=== PATIENT | male | born 1955 | race Caucasian/White ===

== ENCOUNTER 2019-11-02 15:11 | Observation (INO) | payer OTHER, SELFPAY ==
[2019-11-02] VITALS (13 sets, daily range): BP systolic 116–168; BP diastolic 73–100; PULSE 63–89; RESP 16–21; TEMP 36.5–37.1; O2SAT 95–100; BMI 26.6
--- NOTE | 2019-11-02 15:14 | ECG_ITS ---
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 Measurements Intervals [place] Rate: 74 P: -3 IL: 198 QRS: 66 QRSD: 116 T: 93 QT: 408 QTc: 455 Interpretive Statements SINUS RHYTHM LATERAL MYOCARDIAL INFARCTION , OF INDETERMINATE AGE [40+ ms Q WAVE AND/OR ST/T ABNORMALITY IN I/aVL/V5/V6] MODERATE T-WAVE ABNORMALITY, CONSIDER ANTERIOR ISCHEMIA [-0.1+ mV T WAVE IN V3/V4] Compared to ECG 01/17/2018 00:44:40 Myocardial infarct finding now present Sinus bradycardia no longer present Intraventricular conduction delay no longer present T-wave abnormality still present Possible ischemia still present Electronically Signed On 11-02-2019 19:59:59 CDT by Momo Poole M.D. [id number] jose juan
--- NOTE | 2019-11-02 15:14 | XRR_ITS ---
PROCEDURE INFORMATION: Exam: XR Chest, 1 View Exam date and time: 11/02/2019 3:15 PM Age: 64 years old Clinical indication: Chest pain; Additional info: Cp TECHNIQUE: Imaging protocol: XR of the chest Views: 1 view. COMPARISON: CR Ribs RIGHT w PA Chest [id number] 02/21/2019 1:11 PM FINDINGS: Lungs: Stable right calcified hilar nodes and/or mediastinal nodes and/or lung nodules consistent with old granulomatous disease. Stable COPD . Pleural space: Unremarkable. No pleural effusion. No pneumothorax. Heart/Mediastinum: Unremarkable. No cardiomegaly. Bones/joints: Unremarkable. XR/XR chest 1V portable [id number] IMPRESSION: Stable COPD .
[2019-11-02 15:30] LABS: Basophils # 0.1 10^3/uL (0.0-0.1); Basophils % 0.7 %; Eosinophils # 0.1 10^3/uL (0.0-0.8); Eosinophils % 0.9 %; Hematocrit 43.3 % (42.0-52.0); Hemoglobin 14.9 g/dL (11.7-16.6); Lymphocytes # 2.2 10^3/uL (0.8-4.8); Lymphocytes % 18.8 %; Mean Corpuscular HGB Conc 34.4 g/dL (30.0-36.0); Mean Corpuscular Hemoglobin 31.4 pg (28.0-34.0); Mean Corpuscular Volume 91.4 fL (80-94); Mean Platelet Volume 8.9 fL (7.4-10.4); Monocytes # 0.6 10^3/uL (0.2-0.9); Monocytes % 4.7 %; Neutrophils # 8.8 10^3/uL (1.8-7.7); Neutrophils % 74.7 %; Nucleated Red Blood Cells % 0 %; Platelet Count 271 10^3/cmm (130-400); Red Blood Count 4.74 10^6/uL (4.1-5.3); Red Cell Distribution Width 11.9 % (12.1-15.1); White Blood Count 11.7 10^3/uL (4.0-10.0)
[2019-11-02 15:44] LABS: Alanine Aminotransferase 13 U/L (0-41); Albumin Level 4.3 g/dL (3.5-5.2); Alkaline Phosphatase 70 IU/L (40-130); Anion Gap 16.8 (5-19); Aspartate Amino Transferase 20 U/L (0-40); Blood Urea Nitrogen 6 mg/dL (8-23); Calcium 9.3 mg/dL (8.5-10.5); Carbon Dioxide 22 mmol/L (22-29); Chloride 96 mmol/L (98-107); Globulin 2.5 g/dL (1.3-4.6); Glomerular Filtration Rate 85.5 mL/min (90-130); Glucose 141 mg/dL (65-115); Osmolality Calculated 270 mOsm/kg (285-295); Potassium 3.8 mmol/L (3.5-5.1); Sodium 131 mmol/L (136-145); Total Bilirubin 0.3 mg/dL (0.15-1.2); Total Protein 6.8 g/dL (6.6-8.7)
[2019-11-02 15:47] LABS: Troponin(5th) Baseline 8 ng/L (0-15)
--- NOTE | 2019-11-02 16:04 | ED_ITS ---
HPI - Chest Pain General: Chief Complaint: Chest Pain Stated Complaint: CP, syncope after coughing Time Seen by Provider: 11/02/19 15:28 Source: patient Mode of arrival: ambulatory Limitations: no limitations History of Present Illness: HPI narrative: Shayan is a nice 64-year-old male who comes in complaining of chest pain. Chest pains been going on for at least the past 4 days. He describes the pain as a sharp piercing pain in his chest. There is been no radiation. He has some possible shortness of breath but denies any nausea vomiting, diaphoresis, or radiation of his pain. He has had at least 3 episodes of day these past 4 days lasting anywhere from 15 to 30 minutes. Patient states this does not feel like when he had his heart attack in the past. Patient also had a syncopal episode today. Patient states he was at the laundromat when he felt like he swallowed wrong and had something going down the wrong pipe and he started to cough and he does not remember any prodromal symptoms, chest pain or shortness of breath at that time but woke up on the ground. He did not have any bowel or bladder incontinence to suggest seizure. He does not know how long he was unconscious and he denies any injuries from the fall. Associated symptoms: Reports syncope; Deny abdominal pain, diaphoresis, dyspnea, fever(s), nausea, palpitations or vomiting Review of Systems Const: Denies: fever(s), chills, body aches, fatigue, malaise or diaphoresis Eyes: Denies: change in vision, blurry vision, blind spots, photophobia, eye discharge or eye redness ENMT: Denies: throat pain, odynophagia, hoarseness, swelling of lips/tongue, oral sores, ear or mastoid pain, ear discharge, change in hearing or nasal discharge Card: Reports: chest pain and syncope; Denies: palpitations, irregular heart rhythm, edema, lightheadedness, pre- syncope, dyspnea on exertion or orthopnea Resp: Denies: dyspnea, productive cough, non-productive cough, wheezing, hemo ptysis or chest congestion GI: Denies: abdominal pain, nausea, vomiting, hematemesis, coffee ground emesis, heartburn, diarrhea, constipation, GI cramping, hematochezia or melena : Denies: flank pain, dysuria, urinary frequency, urinary urgency or hematuria Musc: Denies: neck pain, back pain, extremity pain, extremity swelling, joint pain, joint swelling, joint redness, joint warmth or joint stiffness Skin/Breast: Denies: rash, pruritus, erythema, skin tenderness or jaundice Neuro: Denies: headache(s), numbness in extremities, weakness in extremities, sensory changes, lack of coordination, difficulty walking, dizziness, vertigo, confusion, Slurred speech present or seizure-like activity Adam/Lymph: Denies: easy bruising, easy bleeding, petechiae, purpura or enlarged lymph nodes All/Imm: Denies: urticaria, throat swelling, tongue swelling, facial swelling or acute wheezing PFSH ED PFSH: Medical History Atherosclerotic heart disease of [place] coronary artery without angina pectoris Coronary stent patent Essential (primary) hypertension Hepatitis A Mixed hyperlipidemia Myocardial infarction Tobacco use Family History (Updated 05/20/19 @ 08:57 by Jackie Givens RN) Grandmother Stroke Hypertension Father Hypertension Diabetes Mother Stroke Diabetes Social History (Updated 11/02/19 @ 15:23 by Delano Burr RN) Smoking and tobacco status: current some day smoker Alcohol intake: never Substance/Drug Use: never Physical Exam Const: COMMON NORMALS: no acute distress, patient oriented x3, no limitations, healthy appearing and well nourished GENERAL APPEARANCE: cooperative, well kempt and well developed HENMT: COMMON NORMALS: normocephalic, atraumatic, external ears normal, EAC's normal and Normal external nose present HEAD & SCALP: normal to inspection, normocephalic and atraumatic FACE & SINUS: normal facial exam and face symmetric NOSE: Normal external nose present and Normal nares present EXTERNAL EAR: Yes external ears normal EXTERNAL AUDITORY CANAL: EAC's normal MOUTH: Normal oral and palatal mucosa present, lip normal and tongue normal Eye: COMMON NORMALS: Equal, round and reactive pupils present and conjunctivae normal GENERAL EYE: appearance normal, both eyes and all related structures ALIGNMENT: Yes alignment normal PERIORBITAL: periorbital findings normal EYELID: eyelids normal CONJUNCTIVA: Yes conjunctivae normal SCLERA: sclerae normal PUPIL: Yes Equal, round and reactive pupils present Neck/C-Spine: COMMON NORMALS: full ROM, no lymphadenopathy, supple, no meningeal signs and no JVD GENERAL: Yes normal visual inspection and Yes trachea midline Chest: COMMONS NORMALS: normal inspection of the chest and normal palpation of entire chest wall Resp: COMMON NORMALS: normal respiratory effort, No retractions and No use of accessory muscles EFFORT & INSPECTION: Yes able to speak in complete sentences and Yes symmetric chest movement AUSCULTATION: no crackles, no rales, no rhonchi and no wheezes Cardio: COMMON NORMALS: no JVD, regular rate, regular rhythm, S1 normal heart sound present and S2 normal heart sound present RATE: regular rate RHYTHM: regular rhythm HEART SOUNDS: S1 normal heart sound present, S2 normal heart sound present, no click, no gallops, no murmurs, no rubs and abnormal split S2 GI: COMMON NORMALS: Soft to palpation and No hepatosplenomegaly present PALPATION: Yes Soft to palpation, No Tenderness to palpation present (GI), No Guarding due to palpation present (GI), No Rigid due to palpation, Yes No hepatosplenomegaly present, No Hernia present, No Palpable mass present and No Pulsatile mass present : COMMON NORMALS: Yes no CVA tenderness BLADDER/KIDNEY EXAM: Yes no CVA tenderness Back/Pelvis: COMMON NORMALS: no CVA tenderness, thoracic and lumbar spine normal to inspection, no thoracic nor lumbar tenderness and thoraco-lumbar ROM normal Extremity: COMMON NORMALS: normal to inspection, full ROM, capillary refill normal, no joint enlargement, no clubbing, cyanosis or edema and no calf tenderness Neuro: COMMON NORMALS: patient oriented x3, CN's II-XII intact bilaterally, moves all extremities, no focal motor deficits and no sensory deficits noted MENINGEAL SIGNS: Yes no meningeal signs SPEECH: speech normal Psych: COMMON NORMALS: mental status grossly normal, Normal thought process present, cooperative, normal affect, speech normal and activity/motor behavior normal APPEARANCE: Yes well kempt SPEECH: Yes normal speech THOUGHT PROCESS: Normal thought process present Skin: COMMON NORMALS: no rashes or lesions noted, turgor normal, no jaundice, no petechiae and no mottling GENERAL SKIN EXAM: no rashes or lesions noted and turgor normal Course Vital Signs: Vital signs: Vital Signs Temperature 98.7 F 11/02/19 15:18 Pulse Rate 78 11/02/19 15:18 Respiratory Rate 18 11/02/19 15:18 Blood Pressure 147/99 11/02/19 15:18 Pulse Oximetry 95 11/02/19 15:18 MDM - Chest Pain MDM Narrative: Medical decision making narrative: The patient had EKG changes here but his troponin was unremarkable and is not having any further chest pain. His d-dimer is negative and he denies any symptoms at this time. With episode of chest pain and a syncopal spell along with having a history of coronary disease I believe the patient would benefit from inpatient evaluation and care. He has not had any provocative heart testing since his heart cath in August 2017. He had a brief admission in December but never received a heart cath at that time. Patient's pain is atypical by history but he has a very significant history for heart disease and multiple risk factors. I believe he would be best benefited by cardiac rule out, echo and possibly stress test. The patient is agreement to stay. I reviewed the case in full with Dr. Joseph who is ag reeable to do so. Lab Data: Labs: Lab Results 11/02/19 11/02/19 11/02/19 Range/Units 15:20 15:20 15:20 WBC 11.7 H (4.0-10.0) 10^3/ uL RBC 4.74 (4.1-5.3) 10^6/u L Hgb 14.9 (11.7-16.6) g/dL Hct 43.3 (42.0-52.0) % MCV 91.4 (80-94) fL MCH 31.4 (28.0-34.0) pg MCHC 34.4 (30.0-36.0) g/dL RDW 11.9 L (12.1-15.1) % Plt Count 271 (130-400) 10^3/c mm MPV 8.9 (7.4-10.4) fL Neut % (Auto) 74.7 % Lymph % (Auto) 18.8 % Aurora % (Auto) 4.7 % Eos % (Auto) 0.9 % Baso % (Auto) 0.7 % Neut # (Auto) 8.8 H (1.8-7.7) 10^3/u L Lymph # (Auto) 2.2 (0.8-4.8) 10^3/u L Aurora # (Auto) 0.6 (0.2-0.9) 10^3/u L Eos # (Auto) 0.1 (0.0-0.8) 10^3/u L Baso # (Auto) 0.1 (0.0-0.1) 10^3/u L Nucleated RBC % (a uto) 0 % Nucleated RBCs # 0.0 /100WBC D-Dimer (0-0.59) ug/mIFE U Sodium 131 L (136-145) mmol/L Potassium 3.8 (3.5-5.1) mmol/L Chloride 96 L (98-107) mmol/L Carbon Dioxide 22 (22-29) mmol/L Anion Gap 16.8 (5-19) BUN 6 L (8-23) mg/dL Creatinine 0.9 (0.7-1.2) mg/dL GFR Calculation 85.5 L (90-130) mL/min Glucose 141 H (65-115) mg/dL Calculated Osmolal ity 270 L (285-295) mOsm/k g Calcium 9.3 (8.5-10.5) mg/dL Total Bilirubin 0.3 (0.15-1.2) mg/dL AST 20 (0-40) U/L ALT 13 (0-41) U/L Alkaline Phosphata se 70 (40-130) IU/L Troponin T Baselin e 8 (0-15) ng/L Total Protein 6.8 (6.6-8.7) g/dL Albumin 4.3 (3.5-5.2) g/dL Globulin 2.5 (1.3-4.6) g/dL 11/02/19 Range/Units 15:20 WBC (4.0-10.0) 10^3/ uL RBC (4.1-5.3) 10^6/u L Hgb (11.7-16.6) g/dL Hct (42.0-52.0) % MCV (80-94) fL MCH (28.0-34.0) pg MCHC (30.0-36.0) g/dL RDW (12.1-15.1) % Plt Count (130-400) 10^3/c mm MPV (7.4-10.4) fL Neut % (Auto) % Lymph % (Auto) % Aurora % (Auto) % Eos % (Auto) % Baso % (Auto) % Neut # (Auto) (1.8-7.7) 10^3/u L Lymph # (Auto) (0.8-4.8) 10^3/u L Aurora # (Auto) (0.2-0.9) 10^3/u L Eos # (Auto) (0.0-0.8) 10^3/u L Baso # (Auto) (0.0-0.1) 10^3/u L Nucleated RBC % (a uto) % Nucleated RBCs # /100WBC D-Dimer 0.32 (0-0.59) ug/mIFE U Sodium (136-145) mmol/L Potassium (3.5-5.1) mmol/L Chloride (98-107) mmol/L Carbon Dioxide (22-29) mmol/L Anion Gap (5-19) BUN (8-23) mg/dL Creatinine (0.7-1.2) mg/dL GFR Calculation (90-130) mL/min Glucose (65-115) mg/dL Calculated Osmolal ity (285-295) mOsm/k g Calcium (8.5-10.5) mg/dL Total Bilirubin (0.15-1.2) mg/dL AST (0-40) U/L ALT (0-41) U/L Alkaline Phosphata se (40-130) IU/L Troponin T Baselin e (0-15) ng/L Total Protein (6.6-8.7) g/dL Albumin (3.5-5.2) g/dL Globulin (1.3-4.6) g/dL Imaging Data^: CXR: My impression: No acute cardiopulmonary findings. Unchanged from previous. EKG Data^: EKG 1: Attestation: I personally reviewed and interpreted this EKG as follows: EKG interpretation date: 11/02/19 EKG interpretation time: 15:29 Interpretation: Normal sinus rhythm at 74 beats a minute, T wave inversions present in aVL and V3 and V4. Findings similar to previous except for V4 T wave inversions are new. EKG from 2017 showed T wave inversions in all inferior leads at that time these have resolved. EKG 2: Attestation: I personally reviewed and interpreted this EKG as follows: EKG interpretation date: 11/02/19 EKG interpretation time: 17:14 Interpretation: Normal sinus rhythm at 59 beats a minute, T wave inversions present in 3 and aVF along with V2 through V4. This is a change from previous with new T wave inversions in V2 and in leads III and aVF. Previous T wave inversions in aVL resolved. This EKG is more similar to patient's EKG from 920 of 18 Discharge Plan Discharge Patient Disposition: Placed in Observation Clinical Impression: Chest pain, Syncope Condition: Stable Prescriptions: No Action omega-3 acid ethyl esters 1 gram capsule 1 cap PO QDAY RF: 0 clopidogrel [Plavix] 75 mg tablet 75 mg PO QDAY RF: 0 cyclobenzaprine 10 mg tablet 10 mg PO QAM PRNRF: 0 atorvastatin 80 mg tablet 80 mg PO QDAY RF: 0 nitroglycerin 0.4 mg tablet, sublingual 0.4 mg SUBLINGUAL Q5M PRNRF: 0 ProAir RespiClick 90 mcg/actuation aerosol powdr breath activated 2 inh INHALATION Q6H PRNRF: 0 cholecalciferol (vitamin D3) 1,000 unit capsule 2,000 unit PO QDAY RF: 0 cetirizine 10 mg capsule 10 mg PO QDAY RF: 0 lisinopril 20 mg tablet 20 mg PO BID RF: 0 naproxen sodium [Aleve] 220 mg capsule 220 mg PO BID PRNRF: 0 aspirin 81 mg tablet,delayed release (DR/EC) 81 mg PO QDAY RF: 0 metoprolol tartrate 50 mg tablet 50 mg PO BID RF: 0 Referrals: Nitish Hood [Primary Care Provider] - Coding Level of Care Code ED Commercial Real Estate Underwriter for Chg Fwd Exam Comprehensive
[2019-11-02 17:02] LABS: D Dimer 0.32 ug/mIFEU (0-0.59)
--- NOTE | 2019-11-02 17:14 | ECG_ITS ---
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 Measurements Intervals [place] Rate: 59 P: 65 [place]: 212 QRS: -4 QRSD: 118 T: -25 QT: 433 QTc: 429 Interpretive Statements SINUS BRADYCARDIA WITH FIRST DEGREE AV BLOCK INFERIOR MYOCARDIAL INFARCTION [40+ ms Q WAVE AND/OR ST/T ABNORMALITY IN II/aVF], OF INDETERMINATE AGE MODERATE T-WAVE ABNORMALITY, CONSIDER ANTERIOR ISCHEMIA [-0.1+ mV T WAVE IN V3/V4] Compared to ECG 11/02/2019 15:29:34 First degree AV block now present Sinus rhythm no longer present Myocardial infarct finding still present T-wave abnormality still present Possible ischemia still present Electronically Signed On 11-02-2019 20:06:38 CDT by Momo Poole M.D. [id number] jose juan
--- NOTE | 2019-11-02 17:44 | P.HP_ITS ---
Providers/Chief Complaint Primary Care Provider: Nitish Hood Chief Complaint: cp, passed out History of Present Illness Shayan Flanagan is a 64 year old gentleman with past history of CAD, KS, s/p stenting, HTN, HLD, current smoker, has been experiencing occasional chest pain like a sharp needle stabbing him on the left side, he is noticed it multiple times over the last week, happening once, sometimes several times a day. He notices that it will happen when he is at rest as well. He says it is not like the chest discomfort he was experiencing when he was having his heart attack which was severe pressure, however, this has gotten him concerned, especially after episode of syncope today when at laundromat he was drinking some soda, and it ended up going the wrong way causing him to choke, as he was coughing and trying to walk out of the laundromat he then woke up on the floor probably several moments later, although is not exactly sure how long he was down for. Woke up with somebody approaching him asking him if he was okay. He denies any chest pain at that time. He has no current chest pain. He has history of high blood pressure, although does not normally measure his blood pressures at home. He still smokes close to about a pack per day. He denies noticing that pain changes with movement. Denies that breathing makes it worse, or position. Denies any heartburn. He has not had any fevers or chills. No headache. He has chronic cough due to smoking. Review of Systems Const: Denies: fever(s), chills, body aches or malaise Eyes: Denies: change in vision or eye redness ENMT: Denies: throat pain, oral sores or ear or mastoid pain Card: Reports: chest pain, swelling of feet/ankles (Occasional minimal swelling), syncope and pre-syncope; Denies: edema, dyspnea on exertion or orthopnea Resp: Denies: dyspnea, productive cough, change in phlegm color or hemoptysis GI: Denies: abdominal pain, nausea, vomiting, diarrhea, constipation, hematochezia or melena : Denies: flank pain, difficulty urinating, urinary frequency or hematuria Musc: Denies: back pain, joint swelling or joint redness Skin/Breast: Denies: rash, sores or new lesions Neuro: Denies: headache(s), numbness in extremities, weakness in extremities, dizziness, confusion or seizure-like activity Endo: Denies: polyuria or polydipsia Adam/Lymph: Denies: easy bleeding or purpura All/Imm: Denies: urticaria, throat swelling or tongue swelling Medications/Allergies Home Medications Medication Instructions Recorded Confirmed Last Taken Type albuterol sulfate 90 mcg/actuation 2 inh INHALATION Q6H PRN 05/20/19 05/20/19 Unknown History breath activated powder inhaler aspirin 81 mg tablet,delayed 81 mg PO QDAY 05/20/19 05/20/19 Unknown History release atorvastatin 80 mg tablet 80 mg PO QDAY 05/20/19 05/20/19 Unknown History cetirizine 10 mg capsule 10 mg PO QDAY 05/20/19 05/20/19 Unknown History cholecalciferol (vitamin D3) 25 2,000 unit PO QDAY cap 05/20/19 05/20/19 Unknown History mcg (1,000 unit) capsule clopidogrel 75 mg tablet 75 mg PO QDAY 05/20/19 05/20/19 Unknown History lisinopril 20 mg tablet 20 mg PO BID 05/20/19 05/20/19 Unknown History metoprolol tartrate 50 mg tablet 50 mg PO BID 05/20/19 05/20/19 Unknown History nitroglycerin 0.4 mg sublingual 0.4 mg SUBLINGUAL Q5M PRN 05/20/19 05/20/19 Unknown History tablet omega-3 acid ethyl esters 1 gram 1 cap PO QDAY 05/20/19 05/20/19 Unknown History capsule Allergies Allergy/AdvReac Type Severity Reaction Status Date / Time No Known Allergies Allergy Unverified 05/20/19 08:48 PFSH Acute PFSH: Medical History Atherosclerotic heart disease of [place] coronary artery without angina pectoris Coronary stent patent Essential (primary) hypertension Hepatitis A Mixed hyperlipidemia Myocardial infarction Tobacco use Family History Grandmother Stroke Hypertension Father Hypertension Diabetes Mother Stroke Diabetes Social History Smoking and tobacco status: current every day smoker cigarettes Packs smoked per day: 1 Alcohol intake: never Substance/Drug Use: former Date of last use: Many years ago Lives independently: Yes Household members: friend(s) Current occupational status: retired Vitals/I&O/Wt Last Vital Signs Temp 98.7 F 11/02/19 15:18 Pulse 78 11/02/19 15:18 Resp 18 11/02/19 15:18 BP 147/99 11/02/19 15:18 Pulse Ox 95 11/02/19 15:18 Weight last 48 hrs Weight 77.111 kg Physical Exam Const: COMMON NORMALS: no acute distress and patient oriented x3 HENMT: COMMON NORMALS: oropharynx normal Neck/C-Spine: COMMON NORMALS: no JVD Resp: COMMON NORMALS: normal respiratory effort and clear to auscultation bi laterally AUSCULTATION: clear to auscultation bilaterally Cardio: COMMON NORMALS: no JVD, regular rhythm, S1 normal heart sound present, S2 normal heart sound present and No murmurs present (Cardio) RHYTHM: regular rhythm HEART SOUNDS: S1 normal heart sound present and S2 normal heart sound present GI: COMMON NORMALS: Normal to inspection, nondistended, normoactive bowel sounds present, Soft to palpation and non-tender PALPATION: Yes Soft to palpation Extremity: COMMON NORMALS: no joint enlargement and no pedal edema OTHER: Ankle bracelet Neuro: COMMON NORMALS: patient oriented x3 and moves all extremities Skin: COMMON NORMALS: no rashes or lesions noted GENERAL SKIN EXAM: no rashes or lesions noted Data : 11/02/19 15:20 11/02/19 15:20 A&P Assessment and plan (1) Syncope: Syncope shortly after choking on some soda. Perhaps due to transient hypoxia, however, with history of coronary disease, cannot exclude that there is progression, especially with episodes of chest pain. Last stenting was in 2018, subsequently presentation again with episodes of chest pain with stress test planned, however, he had declined at that time. Currently will monitor on telemetry. Check orthostatics. So far initial studies not suggestive of acute KS. He is chest pain-free. Appears to be saturating well on room air. No obvious infection. Chest x-ray appears unremarkable. Has chronic cough, but otherwise no signs of COVID-19. Complete troponin EKG series. Will assess by TTE. As long as studies not suggestive of acute KS, stress test tomorrow, to which he is agreeable. We had a discussion regarding risks and benefits of a stress test including small risk that the stress test may trigger active ischemia. He is agreeable to proceed. Preference is for chemical stress test as he gets dyspneic easily. Status: Acute Qualifiers: Syncope type: unspecified Qualified Code(s): R55 - Syncope and collapse (2) Chest pain: Episodes of chest pain described as sharp needle in the left side, different from his prior episodes during KS. No particular trigger. Did not notice changes with movement or repositioning. No heartburn. No recent injury. Some of them lasting up to 30 minutes. History of CAD. He did not try taking nitroglycerin. Additional work-up for concern of progression of CAD as above. D-dimer is normal. Status: Acute Qualifiers: Chest pain type: unspecified Qualified Code(s): R07.9 - Chest pain, unspecified (3) Smoking addiction: Encourage smoking cessation. Status: Acute (4) CAD (coronary artery disease): With past KS, stenting. Continue CAD medications. Status: Acute Additional A&P Information Emphysema: Appears emphysema noted on chest x-ray. He has never been formally diagnosed with COPD. He is not aware of emphysema. Will need to be discussed. May benefit from outpatient PFT. Mild hyponatremia, 131. Not symptomatic. Mild leukocytosis: 11.7. No symptoms suggestive of infection. Chest x-ray unremarkable. No GI, urinary, integumentary or neurologic complaints. Monitor. Attestations Medical Necessity Statement*: Place in observation. Coding Level of Care Code Acute Body Component Engineer for Jorge Kwong Diagnoses Syncope R55 Syncope type: unspecified Chest pain R07.9 Chest pain type: unspecified Smoking addiction F17.200 CAD (coronary artery disease) I25.10
[2019-11-02] MEDS: sodium chloride 0.9% 1,000 ML 100 ML IV (18:57)
--- NOTE | 2019-11-02 20:01 | PC.NURSE ---
Patient does not have any complaints or pain at this time. Will monitor.
--- NOTE | 2019-11-02 20:08 | PC.NURSE ---
Atorvastatin, Amlodipine, Lisinopril, and Metoprolol- patient states he has not taken his nighttime dose of these medications. Dr. Bundy notified.
[2019-11-02 21:00] LABS: Estmated Average Glucose 108; Hemoglobin A1C 5.4 % (4.0-6.0)
--- NOTE | 2019-11-02 21:14 | ECG_ITS ---
[facility] Test Date: 2019-11-02 Pat Name: Shayan Flanagan Department: Room: 101 Gender: Male Facilities Technician: LINDA : 1955 Requested By: Praveen King Order Number: [id number] Reading MD: Momo Poole M.D. Measurements Intervals Regina Rate: 64 P: 64 TN: 203 QRS: 15 QRSD: 127 T: -29 QT: 441 QTc: 456 Interpretive Statements SINUS RHYTHM MODERATE T-WAVE ABNORMALITY, CONSIDER ANTERIOR ISCHEMIA [-0.1+ mV T WAVE IN V3/V4] Compared to ECG 11/02/2019 17:14:28 Sinus bradycardia no longer present Possible recent inferior wall myocardial infarction First degree AV block no longer present Myocardial infarct finding no longer present T-wave abnormality still present Possible ischemia still present Electronically Signed On 11-03-2019 21:45:07 CDT by Momo Poole M.D. [id number]
[2019-11-02] MEDS: metoprolol tartrate 50 mg Tablet PO (21:32)
[2019-11-02] MEDS: atorvastatin 40 mg Tablet PO (21:33)
[2019-11-02] MEDS: lisinopril 20 mg Tablet PO (21:33)
[2019-11-02] MEDS: amlodipine 5 mg Tablet PO (21:33)
[2019-11-02 21:55] LABS: Troponin 5 6HR 9.92 ng/L (0-15); Troponin 5 6HR Delta 1.92 ng/L (0-12)
--- NOTE | 2019-11-02 23:45 | PC.NURSE ---
Patient does not have any complaints at this time. Will monitor.
--- NOTE | 2019-11-02 23:49 | PC.NURSE ---
Patient was offered a hospital gown at 1900 and refused.
[2019-11-03 03:34] VITALS: PULSE 50
[2019-11-03 03:55] VITALS: BP 144/99; PULSE 62; RESP 19; TEMP 36.3; O2SAT 95
[2019-11-03 03:57] LABS: Basophils # 0.1 10^3/uL (0.0-0.1); Basophils % 0.9 %; Eosinophils # 0.3 10^3/uL (0.0-0.8); Eosinophils % 3.5 %; Hematocrit 41.3 % (42.0-52.0); Hemoglobin 14.5 g/dL (11.7-16.6); Lymphocytes # 2.3 10^3/uL (0.8-4.8); Lymphocytes % 31.3 %; Mean Corpuscular HGB Conc 35.1 g/dL (30.0-36.0); Mean Corpuscular Hemoglobin 32.1 pg (28.0-34.0); Mean Corpuscular Volume 91.4 fL (80-94); Mean Platelet Volume 9.3 fL (7.4-10.4); Monocytes # 0.5 10^3/uL (0.2-0.9); Neutrophils # 4.2 10^3/uL (1.8-7.7); Nucleated Red Blood Cells % 0 %; Platelet Count 250 10^3/cmm (130-400); Red Blood Count 4.52 10^6/uL (4.1-5.3); Red Cell Distribution Width 11.9 % (12.1-15.1); White Blood Count 7.4 10^3/uL (4.0-10.0)
[2019-11-03 04:14] LABS: Anion Gap 15.9 (5-19); Blood Urea Nitrogen 9 mg/dL (8-23); Calcium 9.2 mg/dL (8.5-10.5); Carbon Dioxide 24 mmol/L (22-29); Chloride 97 mmol/L (98-107); Glucose 102 mg/dL (65-115); Osmolality Calculated 272 mOsm/kg (285-295); Potassium 3.9 mmol/L (3.5-5.1); Sodium 133 mmol/L (136-145)
[2019-11-03] MEDS: sodium chloride 0.9% 1,000 ML 100 ML IV (05:06)
--- NOTE | 2019-11-03 07:00 | USCV_ITS ---
Shayan Flanagan Age: 64 Gender: M : 1955 Exam Date: 11/03/2019 06:26 Ordering Phys: Agusto Garrison MD Technologist: Juan Burger [place] [facility] [place] HX [place] BP: 132 / 75 HR: 64 Rhythm: Sinus Technical Quality: Suboptimal MEASUREMENTS (Male / Female) Normal Values 2D ECHO LV Diastolic Diameter PLAX 3.8 cm 4.2 - 5.9 / 3.9 - 5.3 cm LV Systolic Diameter PLAX 3.4 cm IVS Diastolic Thickness 1.0 cm 0.6 - 1.0 / 0.6 - 0.9 cm IVS Systolic Thickness 1.4 cm LVPW Diastolic Thickness 1.0 cm 0.6 - 1.0 / 0.6 - 0.9 cm LVPW Systolic Thickness 1.2 cm LVOT Diameter 2.1 cm LV Ejection Fraction 2D Teich 21.8 % LV Ejection Fraction MOD 2C 59.2 % LV Ejection Fraction 2C AL 58.8 % LA Diameter 3.9 cm LA Width 3.5 cm LA Height 5.1 cm RA Width 3.2 cm RA Height 5.5 cm M-MODE LV Diastolic Diameter MM 4.6 cm 4.2 - 5.9 / 3.9 - 5.3 cm LV Systolic Diameter MM 2.9 cm LV Ejection Fraction MM Teich 66.5 % IVS Diastolic Thickness MM 1.1 cm 0.6 - 1.0 / 0.6 - 0.9 cm IVS Systolic Thickness MM 2.0 cm LVPW Diastolic Thickness MM 1.3 cm 0.6 - 1.0 / 0.6 - 0.9 cm LVPW Systolic Thickness MM 1.6 cm RV Diastolic Diameter MM 1.8 cm Aortic Annulus Diameter 3.4 cm LA Ao Ratio MM 1.2 MV E Point Septal Separation 1.4 cm DOPPLER LVOT Peak Velocity 94.0 cm/s TR Peak Velocity 157.0 cm/s TR Peak Gradient 9.9 mmHg TV Peak E Velocity 73.0 cm/s Right Atrial Pressure 3.0 mmHg Pulmonary Artery Systolic Pressu 12.9 mmHg FINDINGS Left Ventricle The ventricle is likely normal in size. There is moderate hypokinesis of the inferior and posterior avendaño. The remainder of the ventricle appears to contract normally. The estimated ejection fraction is 40%. Grade 1 diastolic dysfunction. Right Ventricle Normal right ventricular size and systolic function. Normal right ventricular systolic pressure. Right Atrium The right atrium is normal in size. Left Atrium The left atrium is normal in size. Mitral Valve Structurally normal mitral valve without significant stenosis or prolapse. There is no mitral regurgitation. Aortic Valve Structurally normal aortic valve without significant sclerosis or stenosis. There is no aortic regurgitation. Tricuspid Valve Structurally normal tricuspid valve without significant stenosis or regurgitation. Pulmonary artery systolic pressure is normal. Pulmonic Valve Pulmonic valve not well visualized. Pericardium Normal pericardium without effusion. Aorta Normal ascending aorta dimension. CONCLUSIONS The ventricle is likely normal in size. There is moderate hypokinesis of the inferior and posterior avendaño. The remainder of the ventricle appears to contract normally. The estimated ejection fraction is 40%. Grade 1 diastolic dysfunction. Technically limited study. No significant valve abnormalities. From the previous study performed 04/14/2017, the wall motion disturbances appear to be new. Dr. Marvin Syed MD (Electronically Signed) Final Date: 03 November 2019 09:19 S
--- NOTE | 2019-11-03 07:00 | NMCV_ITS ---
[facility] perf SPECT r/s* [id number] Shayan Flanagan Age: 64 Gender: M : 1955 Exam Date: 11/03/2019 07:00 Ordering Phys: Agusto Garrison MD Technologist: ANILA Garrison Exam Location: [facility] Indications: CHEST PAIN, PASSED OUT STRESS TEST Please see separate stress test report in [facility] for full findings IMAGE PROTOCOL Rest/Stress 1 Lexiscan Day Radiopharmaceutical Dose (mCi) Administration Site Administered by Rest: Tc-99m 10.6 IV LOIDA GarrisonMT Sestamibi Stress:Tc-99m 32.6 IV Nel Arevalo, PHYSICAL SCIENCES INSTRUCTOR Sestamibi Rest: 03-Nov-2019 60 Discovery 630 Stress: 03-Nov-2019 30 Discovery 630 0.4mg Lexiscan. Images obtained in supine and prone position. SPECT RESULTS Technical Quality: Excellent Raw Data Analysis: Normal Image Corrections: No attenuation or motion correction applied Summed Stress Score: 13 Summed Rest Score: 6 Summed Difference Score: 7 PERFUSION FINDINGS Medium-sized area of fixed perfusion defect noted in basal to distal inferior inferoseptal and inferolateral wall suggestive of old myocardial infarction versus scarring without priti-infarct ischemia. FUNCTIONAL RESULTS (calculated via Gated SPECT) Stress Image LV EF (%): 43 Stress EDV (mL):129 TID: 1.05 Stress ESV (mL):73 FUNCTIONAL FINDINGS: There appeared to be global hypokinesis with regional inferior wall akinesis IMPRESSIONS Medium-sized area of fixed perfusion defect noted in basal to distal inferior inferoseptal and inferolateral wall suggestive of old myocardial infarction versus scarring without priti-infarct ischemia. This study is negative for ischemia. EKG segment will be documented separately. Archana Membreno MD (Electronically Signed) Final Date: 03 November 2019 13:09 S
--- NOTE | 2019-11-03 07:30 | PC.NURSE ---
Patient taken to nuclear med for stress test.
[2019-11-03 08:05] VITALS: BP 131/84; PULSE 76
[2019-11-03] MEDS: regadenoson 0.4 Mg/5 ml Syringe IVP (08:05)
--- NOTE | 2019-11-03 09:13 | ECG_ITS ---
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 Interpretive Statements NAME OF STUDY: LEXISCAN SESTAMIBI STRESS TEST INDICATION: Chest Pain, LEXISCAN STRESS TEST ORDERING PHYSICIAN: Hospitalist CLINICAL INFORMATION: Chest pain INTERPRETATION: 1. The patient was brought to the laboratory where Lexiscan was infused over 20 seconds. The resting blood pressure was 123/104. Maximum blood pressure was 123/104. The resting heart rate was 71 beats per minute. The maximum heart rate is 85 beats per minute. 2. The baseline electrocardiogram sinus rhythm with T wave inversions lead V1 through V5 and nondiagnostic Q waves inferior leads. 3. With Lexiscan infusion, there were no ST segment changes to suggest ischemia. 4. The patient experienced no symptoms or arrhythmias during the examination. CONCLUSION: 1. Unremarkable Lexiscan infusion. 2. Nuclear imaging to follow. Electronically Signed On 11-03-2019 9:27:47 CDT by Marvin Syed M.D. [id number]
--- NOTE | 2019-11-03 09:47 | PC.CHAP ---
Pastoral Care Encounter/Spiritual Assessment Type of Contact [] Declined middle or intermediate school principal visit [] Patient/Family/Request visit [] Outpatient visit [] Follow-up visit [] Physician referral [] Code/Alert [] Routine visit [] Staff referral [] Actively dying [] Patient sleeping [] Family support [] [x] Out of room [] Palliative care [] [] Receiving care in room [] Pre-surgical visit [] Trauma [] Long length of stay [] ICU visit [] Other: Stress Test Relational/Emotional Strength [] Patient feels connected with others/family/visitors/staff [] Distress [] Loneliness/isolation [] Abandonment Spirituality of Patient [] Person of [place] [] Attends Catholic of their [place] [] Believes in Prayer [] Reads Bible or Restorationism materials [] There are Spiritual issues to be addressed Acquisitions Assistant Interventions [] Prayer [] Active listening [] Non-anxious presence [] Spiritual/emotional support [] Crisis/trauma care [] Spiritual counseling [] Bereavement support [] Provided bereavement packet [] Provided Bible/devotional materials [] Provided toy/stuffed animal, coloring book to patient or family member [] Provided Communion [] Anointing/Dexter [] Salvation [x] Completed spiritual assessment [] Other: Impact on Illness or Injury [] Angry [] Fearful [] Anxious [] Often cries [] Exhaustion [] Unable to work [] Unable to attend anabaptism [] Unable to walk/stand [] Unable to read [] Unable to drive [] Unable to eat/drink [] Unable to sleep [] Unable to be with family [] Patient intubated [] Other: Summary Time spent with patient
--- NOTE | 2019-11-03 10:00 | PC.NURSE ---
Patient still off unit at nuclear medicine.
[2019-11-03 10:30] VITALS: BP 162/97; PULSE 68; RESP 20; O2SAT 94
--- NOTE | 2019-11-03 10:30 | PC.NURSE ---
Patient back to room 101.
[2019-11-03] MEDS: metoprolol tartrate 50 mg Tablet PO (10:36)
[2019-11-03] MEDS: lisinopril 20 mg Tablet PO (10:37)
[2019-11-03] MEDS: aspirin 81 mg EC Tablet PO (10:37)
[2019-11-03] MEDS: clopidogrel 75 mg Tablet PO (10:37)
[2019-11-03] MEDS: cetirizine 10 mg Tablet PO (10:38)
[2019-11-03 12:00] VITALS: BP 147/91; PULSE 76; RESP 12; TEMP 36.9; O2SAT 96
--- NOTE | 2019-11-03 13:08 | USCV_ITS ---
Shayan Flanagan Age: 64 Gender: M : 1955 Exam Date: 11/03/2019 14:04 Ordering Phys: Robert Guzman MD Technologist: Kacy Pugh Exam Location: [facility] [place] Indication: SYNCOPE Risk Factors: Smoker Previous Vascular Surgery: STENTS Right Brachial BP: / Left Brachial BP: / Right Left Velocity (cm/s) Spectral Plaque Velocity (cm/s) Spectral Plaque Syst/Diast Broadening Syst/Diast Broadening 42.00/ 8.10 Prox CCA 44.80 / 10.90 44.70/ 11.00 Mid CCA 46.80 / 10.50 57.90/ 16.10 Distal CCA 36.20 / 9.90 42.00/ 13.60 Prox ICA 37.40 / 13.60 35.20/ 11.10 Mid ICA 45.60 / 16.00 46.90/ 14.20 Distal ICA 38.50 / 17.80 76.10 ECA 51.10 1.05 ICA/CCA 0.97 Antegrade Vertebral Antegrade 35.80/ 8.00 cm/s 38.50/ 11.80 cm/s Tri Subclavian Tri 70.60 100.2 0 FINDINGS Comparison:. none No significant elevation of systolic or diastolic velocities. Diffuse, mild bilateral scattered calcified plaque and intimal thickening throughout the common carotid arteries and extending through the bifurcation. CONCLUSIONS Bilateral ICA stenosis less than 50%. Mild bilateral atherosclerosis. Dr. Cecilia Mckoy DO (Electronically Signed) Final Date: 03 November 2019 14:46 S
--- NOTE | 2019-11-03 14:00 | PC.NURSE ---
Carotid ultrasound in progress.
[2019-11-03 14:29] VITALS: BP 147/84; PULSE 76; RESP 12; TEMP 36.9; O2SAT 96
--- NOTE | 2019-11-03 15:00 | PC.NURSE ---
[facility] taken to [facility] of cardiac event monitor.
--- NOTE | 2019-11-03 15:31 | PC.RESP ---
Smoking Cessation information and a schedule of classes sent to patient.
--- NOTE | 2019-11-03 15:33 | PM.DCS ---
Discharge Providers Date of Admission: 11/02/19 17:15 Date of Discharge: November 03, 2019 Attending Provider at Admission: Agusto Garrison Attending Provider at Discharge: Robert Guzman MD Primary Care Provider: Nitish Hood Diagnoses at Discharge Discharge Diagnosis (1) Syncope: Status: Acute Qualifiers: Syncope type: unspecified Qualified Code(s): R55 - Syncope and collapse (2) Chest pain: Status: Acute Qualifiers: Chest pain type: unspecified Qualified Code(s): R07.9 - Chest pain, unspecified (3) Smoking addiction: Status: Acute (4) CAD (coronary artery disease): Status: Acute Reason for Visit Reason for Visit: cp, passed out Hospital Course Discharge Summary: This is a 64-year-old male with a past medical history of CAD status post stenting to LAD, left circumflex, with recent stent placement to RCA in 2018, hypertension, hyperlipidemia, current smoker who presents to [facility] due to complaints of chest pain and syncopal episode. For his chest pain, he was asymptomatic during presentation, asymptomatic during his hospital course, troponins were unremarkable, EKG showed T wave inversions in inferior leads and V3 which were chronic in nature seen on EKG seen on EKG on 01/17/2018, no other acute ST or T wave changes, no acute events on telemetry. Patient had a cardiac echocardiogram which showed moderate hypokinesis of the inferior and posterior avendaño, estimated ejection fraction was 40%, compared to echocardiogram on 04/14/2017 the wall motion disturbances appear to be new. Patient had a cardiac stress test during his inpatient stay which showed a medium-sized area of fixed perfusion defect noted in the basal to distal inferior inferior septal and inferior lateral wall suggestive of old myocardial infarction versus scarring without priti-infarct ischemia, this study was negative for ischemia. I discussed the case with Dr. Syed, as patient remained asymptomatic, is on dual antiplatelet therapy, and optimal medical therapy, plan was to continue to monitor with close follow-up with cardiology as outpatient. Patient was advised if he were to have recurrent chest pain to come back to the emergency room. For his syncopal episode, shortly after choking on some soda, patient telemetry monitoring had no acute events, carotid ultrasound bilateral ICA stenosis less than 50%, patient will be discharged on a Holter monitor to exclude cardiac arrhythmia as a source of a syncopal episode. Patient was advised that if he were to pass out again to come back to the emergency room. Physical Exam Const: COMMON NORMALS: no acute distress and patient oriented x3 HENMT: COMMON NORMALS: normocephalic HEAD & SCALP: normocephalic Neck/C-Spine: COMMON NORMALS: no JVD Resp: COMMON NORMALS: normal respiratory effort, No retractions, No use of accessory muscles and clear to auscultation bilaterally AUSCULTATION: clear to auscultation bilaterally Cardio: COMMON NORMALS: no JVD, regular rate, regular rhythm, S1 normal heart sound present and S2 normal heart sound present RATE: regular rate RHYTHM: regular rhythm HEART SOUNDS: S1 normal heart sound present and S2 normal heart sound present GI: COMMON NORMALS: Normal to inspection, nondistended, normoactive bowel sounds present, Soft to palpation, non-tender, No hepatosplenomegaly present, no masses and no bruits PALPATION: Yes Soft to palpation and Yes No hepatosplenomegaly present Extremity: COMMON NORMALS: capillary refill normal, no clubbing, cyanosis or edema, no calf tenderness and no pedal edema Neuro: COMMON NORMALS: patient oriented x3 Psych: COMMON NORMALS: mental status grossly normal Discharge Data Data Completed and Pending: Completed Studies During Hospitalization Category Date Time Status Sestamibi Stress Test Request Routi ne Exams 11/03/19 09:13 Completed XR chest 1V valeri ble [id number] Stat Exams 11/02/19 15:14 Completed [facility] perf SPECT r/s* [id number] Routin e Nuc Med 11/03/19 07:00 Completed CV carotid duplex BI* [id number] Stat Ultrasound 11/03/19 13:08 Completed CV echo complete* [id number] Routine Ultrasound 11/03/19 07:00 Completed Pending at discharge Category Date Time Status Sestamibi Stress Test Request Routi ne Exams 11/03/19 06:52 Ordered Drug Screen Serum [Serum Drug Panel 7] Routine Lab 11/02/19 21:21 Received Labs from last 24 hours 11/03/19 11/03/19 11/02/19 02:57 02:57 21:21 WBC 7.4 RBC 4.52 Hgb 14.5 Hct 41.3 L MCV 91.4 MCH 32.1 MCHC 35.1 RDW 11.9 L Plt Count 250 MPV 9.3 Neut % (Auto) 57.0 Lymph % (Auto) 31.3 [place] % (Auto) 7.0 Eos % (Auto) 3.5 Baso % (Auto) 0.9 Neut # (Auto) 4.2 Lymph # (Auto) 2.3 [place] # (Auto) 0.5 Eos # (Auto) 0.3 Baso # (Auto) 0.1 Nucleated RBC % (a uto) 0 Nucleated RBCs # 0.0 D-Dimer Sodium 133 L Potassium 3.9 Chloride 97 L Carbon Dioxide 24 Anion Gap 15.9 BUN 9 Creatinine 0.8 GFR Calculation 98.0 Glucose 102 Estimat Average Gl ucose Hemoglobin A1c Calculated Osmolal ity 272 L Calcium 9.2 Total Bilirubin AST ALT Alkaline Phosphata se Troponin I 6 Hour 9.92 Troponin I Hi Sens Del 1.92 Troponin T Baselin e Troponin T 120 Min [place] Delta Troponin T Total Protein Albumin Globulin 11/02/19 11/02/19 11/02/19 17:30 15:20 15:20 WBC RBC Hgb Hct MCV MCH MCHC RDW Plt Count MPV Neut % (Auto) Lymph % (Auto) [place] % (Auto) Eos % (Auto) Baso % (Auto) Neut # (Auto) Lymph # (Auto) [place] # (Auto) Eos # (Auto) Baso # (Auto) Nucleated RBC % (a uto) Nucleated RBCs # D-Dimer 0.32 Sodium Potassium Chloride Carbon Dioxide Anion Gap BUN Creatinine GFR Calculation Glucose Estimat Average Gl ucose 108 Hemoglobin A1c 5.4 Calculated Osmolal ity Calcium Total Bilirubin AST ALT Alkaline Phosphata se Troponin I 6 Hour Troponin I Hi Sens Del Troponin T Baselin e Troponin T 120 Min [place] 8.40 Delta Troponin T 0.40 Total Protein Albumin Globulin 11/02/19 11/02/19 15:20 15:20 WBC RBC Hgb Hct MCV MCH MCHC RDW Plt Count MPV Neut % (Auto) Lymph % (Auto) [place] % (Auto) Eos % (Auto) Baso % (Auto) Neut # (Auto) Lymph # (Auto) [place] # (Auto) Eos # (Auto) Baso # (Auto) Nucleated RBC % (a uto) Nucleated RBCs # D-Dimer Sodium 131 L Potassium 3.8 Chloride 96 L Carbon Dioxide 22 Anion Gap 16.8 BUN 6 L Creatinine 0.9 GFR Calculation 85.5 L Glucose 141 H Estimat Average Gl ucose Hemoglobin A1c Calculated Osmolal ity 270 L Calcium 9.3 Total Bilirubin 0.3 AST 20 ALT 13 Alkaline Phosphata se 70 Troponin I 6 Hour Troponin I Hi Sens Del Troponin T Baselin e 8 Troponin T 120 Min [place] Delta Troponin T Total Protein 6.8 Albumin 4.3 Globulin 2.5 Vitals: Last Vital Signs Temp 98.4 F 11/03/19 14:29 Pulse 76 11/03/19 14:29 Resp 12 11/03/19 14:29 BP 147/84 11/03/19 14:29 Pulse Ox 96 11/03/19 14:29 Discharge Plan Discharge Patient Disposition: Home, Self-Care Condition: Stable Prescriptions: New Nitrostat 0.4 mg Tablet, Sublingual 0.4 mg sublingual Q5M PRN (Reason: Chest Pain) 3 Days Qty: 3 RF: 0 Continued omega-3 acid ethyl esters 1 gram capsule 1 cap PO DAILY RF: 0 clopidogrel [Plavix] 75 mg tablet 75 mg PO DAILY RF: 0 atorvastatin 80 mg tablet 40 mg PO BEDTIME RF: 0 nitroglycerin 0.4 mg tablet, sublingual 0.4 mg SUBLINGUAL Q5M PRN (Reason: Chest Pain) RF: 0 ProAir RespiClick 90 mcg/actuation aerosol powdr breath activated 2 inh INHALATION Q6H PRN (Reason: Shortness Of Breath) RF: 0 cholecalciferol (vitamin D3) 1,000 unit capsule 2,000 unit PO DAILY RF: 0 cetirizine 10 mg capsule 10 mg PO DAILY RF: 0 lisinopril 20 mg tablet 20 mg PO BID RF: 0 aspirin 81 mg tablet,delayed release (DR/EC) 81 mg PO DAILY RF: 0 metoprolol tartrate 50 mg tablet 50 mg PO BID RF: 0 amlodipine 5 mg Tablet 5 mg PO BEDTIME RF: 0 garlic Tablet 2,000 mg PO DAILY RF: 0 Nasal [place] (oxymetazoline) 0.05 % [place],Non-Aerosol 2 spray INTRANASAL Q12H PRN (Reason: nasal congestion) RF: 0 Discharge Orders: Discharge Order (Routine); Ordered 11/03/19 Ordered By: Robert Guzman Referrals: Archana Membreno MD [Physician] - 1 week (Appointment with D[facility]CI Guajardo at [facility] on Sunday, November 09 at 2:30pm.) Nitish Hood [Primary Care Provider] - (You have a PHONE followup with Dr. Mendoza (he will call you) on November 09 at 1300) Discharge Diet: Cardiac Discharge Activity: Resume usual activity Patient Instructions: Chest Pain Stoplight Activity Restrictions/Additional Instructions: -If he has repeat chest pain please come back to the emergency room -Please follow-up with cardiology for your Holter monitor -Please follow-up with your primary care provider for results for your carotid ultrasound -If you pass out again please call 911 Discharge Attestations Time Spent in Discharge Care*: less than 30 min Quality Metrics Clinical Quality Measures During this hospital stay, did patient experience: None Coding Level of Care Code Acute Alum Mixer for Jorge Fwd Diagnoses Syncope R55 Syncope type: unspecified Chest pain R07.9 Chest pain type: unspecified Smoking addiction F17.200 CAD (coronary artery disease) I25.10
[2019-11-06 07:44] LABS: Amphetamine negative; Barbiturates negative; Benzodiazepines negative; Cocaine Metabolites negative; Marijuana(Tetrahydrocannabino) negative; Opiates negative; PCP (Phencyclidine) negative
--- NOTE | 2019-11-13 10:55 | PC.SOCIAL ---
Serious report called on event monitor to Dr Guzman office. This nurse did not see a previous visit to [facility] so called Preventive service and asked that report be sent to our office. Called Dr Guzman to notify he is the only one listed to follow this monitor. We discussed provider should make sure who is to follow. Dr Guzman was able to see where patient had recently been seen by Colleen BEJARANO in [facility]. Delivered report to her office and asked for it to be reviewed as soon as possible. Called preventive services and updated that Colleen BEJARANO will be the following provider. Delio updated this in their system.
== END 2019-11-03 15:00 | disposition home or self-care (01) ==
LOC: ER 17:37 → CSU 17:59
PROVIDERS: Emergency Medicine; Admitting Provider Internal Medicine; Emergency Provider Emergency Medicine; PCP Emergency Medicine Emergency Medical Services; Visit Provider Family Medicine
DX: R55 Syncope and collapse (principal); R07.9 Chest pain, unspecified; F17.210 Nicotine dependence, cigarettes, uncomplicated; I25.10 Atherosclerotic heart disease of native coronary artery without angina pectoris; I65.23 Occlusion and stenosis of bilateral carotid arteries; J43.9 Emphysema, unspecified; Z95.5 Presence of coronary angioplasty implant and graft; E78.2 Mixed hyperlipidemia; I25.2 Old myocardial infarction; Z82.49 Family history of ischemic heart disease and other diseases of the circulatory system
CPT/HCPCS: 12345; 36415; 71045; 78452; 80048; 80053; 80307; 83036; 84484; 85025; 85378; 93005; 93017; 93306; 93880; 96360; 96361; 99283; 99285; A9500; G0378; J2785; J7030

== ENCOUNTER → 2019-11-14 12:33 | Outpatient (BNVA) | payer OTHER, SELFPAY | PROVIDERS: PCP Family Medicine; Visit Provider Internal Medicine Cardiovascular Disease | DX: E78.2 Mixed hyperlipidemia (principal); I10 Essential (primary) hypertension; I25.10 Atherosclerotic heart disease of native coronary artery without angina pectoris | CPT/HCPCS: 80048; 85025 ==

== ENCOUNTER 2020-06-24 13:08 | Outpatient (CLI) | payer OTHER, SELFPAY ==
--- NOTE | 2020-06-24 13:55 | CT_ITS ---
WS: [id number] CTA THORACIC AORTA WITH AND WITHOUT CONTRAST. HISTORY: BORDERLINE TAA TECHNIQUE: CT imaging of the thorax is performed with and without contrast. After noncontrast imaging is performed, CT angiogram is performed during injection of Omnipaque 350; 95 mL IV.. Sagittal and c oronal reconstructions, sagittal and coronal MIP imaging is submitted. All CT scans at [facility] use at least one of these dose optimization techniques: automated exposure control; mA and/o r kV adjustment per patient size (includes targeted exams where dose is matched to clinical indicatio n); or iterative reconstruction. DLP: 1522.14 mGycm COMPARISON: 02/18/2019 Excellent opacification of the thoracic aorta. There is very slight dilatation of the ascending aorta just distal to the valve plane measuring 3.7 cm. No interval progression since the prior study. Ther e is no dissection. Very mild atherosclerotic plaque. Origin of the great vessels is only mild athero sclerotic plaque. No occlusions. Normal size pulmonary artery. No suspicious pulmonary mass or pneumonia. No pericardial or pleural effusions. There are a few small subcentimeter mediastinal and hilar lymph nodes which are similar to the prior study. There is exten sive coronary artery atherosclerosis. Mild enlargement the LEFT heart chambers. Mild diffuse hepatic steatosis. Visualized gallbladder is negative. No adrenal mass. Straightening of the normal thoracic kyphosis. Advanced degenerative disc disease and endplate osteop hytes in the midthoracic spine. No osteoblastic or osteolytic bone disease. CT/CT angio chest [id number] IMPRESSION: 1. Minimal ectasia of the ascending thoracic aorta is stable at 3.8 cm. 2. Mild atherosclerosis aorta. 3. Moderate to severe coronary artery atherosclerosis, similar to the prior st udy. 4. Hepatic steatosis. 5. LEFT heart enlargement.
[2020-06-24 14:13] LABS: Blood Urea Nitrogen 4 mg/dL (8-23); Glomerular Filtration Rate 97.6 mL/min (90-130)
[2020-06-24] MEDS: iohexol 350 mg/mL 100 mL Btl IV (14:22)
== END 2020-06-24 13:09 | disposition home or self-care (01) ==
LOC: RADWPI 13:12
PROVIDERS: PCP Internal Medicine Cardiovascular Disease; Visit Provider Emergency Medicine Emergency Medical Services
DX: Z01.89 Encounter for other specified special examinations (principal); I51.7 Cardiomegaly; K76.0 Fatty (change of) liver, not elsewhere classified; I25.10 Atherosclerotic heart disease of native coronary artery without angina pectoris; I70.0 Atherosclerosis of aorta; I77.810 Thoracic aortic ectasia
CPT/HCPCS: 71275; 82565; 84520; Q9967

== ENCOUNTER 2021-02-18 14:09 | Inpatient (IN) | payer OTHER, SELFPAY ==
[2021-02-18] VITALS (8 sets, daily range): BP systolic 132–139; BP diastolic 78–98; PULSE 56–78; RESP 16–18; TEMP 36.5–36.8; O2SAT 95–98; BMI 24.9
--- NOTE | 2021-02-18 14:52 | XR_ITS ---
WS: [id number] Portable AP upright chest, 02/18/2021 Clinical Data: chest pain Comparison: Portable chest, 11/02/2019. Findings: No nodules, masses or effusions are seen. The heart is normal. The pulmonary vascularity is not increased. No pneumonia or pneumothorax is seen. The aortic arch and descending thoracic aorta s how tortuosity. The diaphragms are flattened. Monitor leads are on the chest wall. XR/XR chest 1V portable [id number] Impression: Atherosclerosis and hyperinflation.
--- NOTE | 2021-02-18 14:54 | W.ED.CHESTPA ---
HPI - Chest Pain General: Chief Complaint: Chest Pain Stated Complaint: CP, Difficulty Breathing Time Seen by Provider: 02/18/21 14:43 Source: patient Mode of arrival: ambulatory Limitations: no limitations History of Present Illness: HPI narrative: Patient reports intermittent mild chest pain with associated pressure in his head and slight confusion and near syncope and generalized weakness intermittently since yesterday. He states this occurs with mild activity. Relieved with rest. He states he has no symptoms now. States he did have his Plavix this morning. He no longer takes aspirin. He reports a possible history of 3 MIs in the past 1 OK he did code. He reports history of hypertension as well. He reports history of coronary disease with last stent 18 months ago. 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 He reports that he was slightly confused earlier today and felt faint. He states he has slight chest pain but states most of his discomfort was head pressure. He states he felt like his blood pressure was high at the time. He did take his blood pressure medication today. 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 Onset (ago): hour(s) (2) Timing of current episode: episodic and now resolved Prior episodes: Yes Onset: during exertion Pain location: left chest and other (Global headache, no headache now) Pain radiation: none Quality: other (Pressure) Relieving factors: rest Exacerbating factors: exertion Associated symptoms: Deny abdominal pain, diaphoresis, dyspnea, fever(s), leg edema, nausea, palpitations, sense of impending doom, syncope or vomiting Treatment prior to arrival: other (Patient states he took his morning meds including Plavix.) Risk Factors: Coronary artery disease risk factors: hypertension Review of Systems Const: Reports: fatigue and malaise; Denies: fever(s), chills or diaphoresis Eyes: Denies: change in vision ENMT: Denies: throat pain Card: Reports: chest pain, lightheadedness and pre-syncope; Denies: palpitations, irregular heart rhythm, edema or syncope Resp: Denies: dyspnea or productive cough GI: Denies: abdominal pain, nausea or vomiting : Denies: flank pain Musc: Denies: neck pain or back pain Skin/Breast: Denies: rash or pruritus Neuro: Reports: headache(s); Denies: numbness in extremities, weakness in extremities, sensory changes or lack of coordination Psych: Denies: anxiety Adam/Lymph: Denies: enlarged lymph nodes PFSH ED PFSH: Medical History Atherosclerotic heart disease of [place] coronary artery without angina pectoris Coronary stent patent Essential (primary) hypertension Hepatitis A Mixed hyperlipidemia Myocardial infarction Tobacco use Family History Grandmother Stroke Hypertension Father Hypertension Diabetes Mother Stroke Diabetes Social History Smoking and tobacco status: current every day smoker cigarettes Packs smoked per day: 1 Alcohol intake: never Lives independently: Yes Household members: friend(s) Current occupational status: retired Physical Exam Const: COMMON NORMALS: no acute distress, patient oriented x3, no limitations, healthy appearing, alert and well nourished GENERAL APPEARANCE: cooperative HENMT: COMMON NORMALS: normocephalic and atraumatic HEAD & SCALP: normocephalic and atraumatic FACE & SINUS: normal facial exam Eye: COMMON NORMALS: EOMs intact bilaterally Neck/C-Spine: COMMON NORMALS: full ROM, no lymphadenopathy, supple and no meningeal signs GENERAL: Yes normal visual inspection Lymph: LYMPHATIC: no lymphadenopathy noted Chest: COMMONS NORMALS: normal inspection of the chest and normal palpation of entire chest wall CHEST: No Ecchymosis present and No rash Resp: COMMON NORMALS: normal respiratory effort, No retractions, No use of accessory muscles and clear to auscultation bilaterally EFFORT & INSPECTION: No respiratory distress AUSCULTATION: clear to auscultation bilaterally Cardio: COMMON NORMALS: regular rate, regular rhythm and Peripheral pulses 2+ throughout JUGULAR VENOUS DISTENTION: no JVD RATE: regular rate RHYTHM: regular rhythm PERIPHERAL PULSES: Peripheral pulses 2+ throughout GI: COMMON NORMALS: Normal to inspection, nondistended, normoactive bowel sounds present and non-tender : COMMON NORMALS: Yes no CVA tenderness BLADDER/KIDNEY EXAM: Yes no CVA tenderness Back/Pelvis: COMMON NORMALS: no CVA tenderness Extremity: COMMON NORMALS: normal to inspection, full ROM, capillary refill normal and no clubbing, cyanosis or edema NARRATIVE EXTREMITY EXAM: Peripheral pulses are normal. Neuro: COMMON NORMALS: patient oriented x3, CN's II-XII intact bilaterally, moves all extremities, no focal motor deficits, no sensory deficits noted and deep tendon reflexes 2+ bilaterally SENSORIUM/ORIENTATION: Yes alert MENINGEAL SIGNS: Yes no meningeal signs Psych: COMMON NORMALS: mental status grossly normal and Normal thought process present THOUGHT PROCESS: Normal thought process present Skin: COMMON NORMALS: no rashes or lesions noted and no wounds GENERAL SKIN EXAM: no rashes or lesions noted Course Vital Signs: Vital signs: Vital Signs Temperature 97.7 F 02/18/21 14:52 Pulse Rate 74 02/18/21 14:52 Respiratory Rate 16 02/18/21 14:52 Blood Pressure 132/98 02/18/21 14:52 Pulse Oximetry 98 02/18/21 14:28 MDM - Chest Pain MDM Narrative: Medical decision making narrative: See nursing assessment. Patient states he thinks he took his Plavix this morning. 1754: Troponin increased by 12 points. Delta of 12. Patient is agreeable to admission. 1824: d/w hospitalist Dr. Mars. Will admit to stepdown unit. Medical Records: Attestation: I reviewed the patient's medical records. 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 Interpretive Statements NAME OF STUDY: LEXISCAN SESTAMIBI STRESS TEST INDICATION: Chest Pain, LEXISCAN STRESS TEST ORDERING PHYSICIAN: Hospitalist CLINICAL INFORMATION: Chest pain INTERPRETATION: 1. The patient was brought to the laboratory where Lexiscan was infused over 20 seconds. The resting blood pressure was 123/104. Maximum blood pressure was 123/104. The resting heart rate was 71 beats per minute. The maximum heart rate is 85 beats per minute. 2. The baseline electrocardiogram sinus rhythm with T wave inversions lead V1 through V5 and nondiagnostic Q waves inferior leads. 3. With Lexiscan infusion, there were no ST segment changes to suggest ischemia. 4. The patient experienced no symptoms or arrhythmias during the examination. CONCLUSION: 1. Unremarkable Lexiscan infusion. 2. Nuclear imaging to follow. Electronically Signed On 11-03-2019 9:27:47 CDT by Marvin Syed M.D. [email or web address] Dictated By:Marvin Syed MDSigned By:Marvin Syed MDSigned Date/Time:11/03/19928 Lab Data: Attestation: I reviewed the patient's lab results. Labs: Lab Results 02/18/21 02/18/21 02/18/21 15:08 15:08 15:08 WBC 8.2 10^3/uL 10^3/ uL (4.0-10.0) RBC 5.20 10^6/uL 10^6 /uL (4.1-5.3) Hgb 16.0 g/dL g/dL (11.7-16.6) Hct 46.5 % % (42.0-52.0) MCV 89.4 fl fl (80-94) MCH 30.8 pg pg (28.0-34.0) MCHC 34.4 g/dL g/dL (30.0-36.0) RDW 12.3 % % (12.1-15.1) Plt Count 299 10^3/cmm 10^3 /cmm (130-400) MPV 9.2 fL fL (7.4-10.4) Neut % (Auto) 69.3 % % Lymph % (Auto) 22.9 % % [place] % (Auto) 6.2 % % Eos % (Auto) 0.7 % % Baso % (Auto) 0.7 % % Neut # (Auto) 5.68 10^3/uL 10^3 /uL (1.8-7.7) Lymph # (Auto) 1.9 10^3/uL 10^3/ uL (0.8-4.8) [place] # (Auto) 0.5 10^3/uL 10^3/ uL (0.2-0.9) Eos # (Auto) 0.1 10^3/uL 10^3/ uL (0.0-0.8) Baso # (Auto) 0.1 10^3/uL 10^3/ uL (0.0-0.1) Nucleated RBC % (a uto) 0 % % Nucleated RBCs # 0.0 /100WBC /100W BC APTT 27.4 SECONDS SECO NDS (23.9-36.7) Sodium 134 mmol/L L mmol /L (136-145) Potassium 4.4 mmol/L mmol/L (3.5-5.1) Chloride 98 mmol/L mmol/L (98-107) Carbon Dioxide 25 mmol/L mmol/L (22-29) Anion Gap 15.4 (5-19) BUN 4 mg/dL L mg/dL (8-23) Creatinine 0.7 mg/dL mg/dL (0.7-1.2) GFR Calculation 113.5 mL/min mL/m in (90-130) Glucose 91 mg/dL mg/dL (65-115) Calculated Osmolal ity 274 mOsm/kg L mOs m/kg (285-295) Calcium 9.6 mg/dL mg/dL (8.5-10.5) Troponin T Baselin e Troponin T 120 Min [place] Delta Troponin T 02/18/21 02/18/21 15:08 17:06 WBC RBC Hgb Hct MCV MCH MCHC RDW Plt Count MPV Neut % (Auto) Lymph % (Auto) [place] % (Auto) Eos % (Auto) Baso % (Auto) Neut # (Auto) Lymph # (Auto) [place] # (Auto) Eos # (Auto) Baso # (Auto) Nucleated RBC % (a uto) Nucleated RBCs # APTT Sodium Potassium Chloride Carbon Dioxide Anion Gap BUN Creatinine GFR Calculation Glucose Calculated Osmolal ity Calcium Troponin T Baselin e 12 ng/L ng/L (0-15) Troponin T 120 Min [place] 24.09 ng/L H ng/L (0-15) Delta Troponin T 12.09 ABS# H* ABS # (0-10) Imaging Data^: CXR: Radiologist's impression: Ordering Provider/Ordering MD: Mateo Rosales MD Date of Service: 02/18/21 Procedure(s): XR chest 1V portable [id number] Accession Number(s): [id number] Report Number: [id number] WS: [id number] Portable AP upright chest, 02/18/2021 Clinical Data: chest pain Comparison: Portable chest, 11/02/2019. Findings: No nodules, masses or effusions are seen. The heart is normal. The pulmonary vascularity is not increased. No pneumonia or pneumothorax is seen. The aortic arch and descending thoracic aorta show tortuosity. The diaphragms are flattened. Monitor leads are on the chest wall. XR/XR chest 1V portable [id number] Impression: Atherosclerosis and hyperinflation. Dictated By:Marianela Robledo MDSigned By:Marianela Robledo MDSigned Date/Time:02/18/[address] Head: Radiologist's impression: Ordering Provider/Ordering MD: Mateo Rosales MD Date of Service: 02/18/21 Procedure(s): CT head wo con* [id number] Accession Number(s): [id number] Report Number: [id number] PROCEDURE INFORMATION: Exam: CT Head Without Contrast Exam date and time: 02/18/2021 2:53 PM Age: 66 years old Clinical indication: Altered mental status/memory loss and dizziness; Confusion or disorientation; Patient HX: C/O dizziness and confusion; Additional info: Dizzy; Brief confusion; Head pressure; HTN; On plavix, no other neuro symptoms TECHNIQUE: Imaging protocol: Computed tomography of the head without contrast. Radiation optimization: All CT scans at this facility use at least one of these dose optimization techniques: automated exposure control; mA and/or kV adjustment per patient size (includes targeted exams where dose is matched to clinical indication); or iterative reconstruction. COMPARISON: No relevant prior studies available. RADIATION DOSE METRICS: Total DLP (mGy-cm): 832.31 FINDINGS: Brain: Encephalomalacia in the left frontal lobe. There are mild periventricular and subcortical lucencies consistent with chronic microvascular ischemic changes. Cerebral ventricles: No ventriculomegaly. Paranasal sinuses: Visualized sinuses are unremarkable. No fluid levels. Mastoid air cells: Visualized mastoid air cells are well aerated. Orbital cavity: Left cataract surgery. Vasculature: Vascular calcifications. Bones/joints: Unremarkable. No acute fracture. Soft tissues: Unremarkable. CT/CT head wo con* 90199 IMPRESSION: No acute intracranial abnormality. Chronic microvascular ischemic changes. Radiation Dose CTDIVOL = (mGy): DLP = 832.31 (mGy-cm) Dictated By:Will Talamantes MDSigned By:Will Talamantes MDSigned Date/Time:02/18/21 1557 EKG Data^: EKG 1: Attestation: I personally reviewed and interpreted this EKG as follows: EKG interpretation date: 02/18/21 EKG interpretation time: 14:28 Prior EKG tracings: available for review Ischemic changes: non-specific ST-T wave changes Interpretation: Normal sinus rhythm with heart rate of 69. Normal axis. IVCD, nonspecific ST-T changes in the anterior leads improved from EKG on November 02, 2019. Normal PA interval, normal QT interval. Discharge Plan Discharge Clinical Impression: Chest pain Qualifiers: Chest pain type: unspecified Qualified Code(s): R07.9 - Chest pain, unspecified Headache Qualifiers: Headache type: unspecified Headache chronicity pattern: episodic headache Intractability: not intractable Qualified Code(s): R51.9 - Headache, unspecified Condition: Stable Prescriptions: No Action nitroglycerin 0.4 mg tablet, sublingual 0.4 mg SUBLINGUAL Q5M PRN (Reason: Chest Pain) RF: 0 cholecalciferol (vitamin D3) 1,000 unit capsule 2,000 unit PO DAILY RF: 0 cetirizine 10 mg capsule 10 mg PO DAILY RF: 0 clopidogrel 75 mg tablet 75 mg PO DAILY RF: 0 aspirin [Adult Aspirin Regimen] 81 mg tablet,delayed release (DR/EC) 81 mg PO DAILY Qty: 90 RF: 3 metoprolol tartrate 75 mg tablet 75 mg PO BID Qty: 180 RF: 3 Eliquis 5 mg tablet 5 mg PO BID Qty: 180 RF: 3 losartan 50 mg tablet 50 mg PO DAILY Qty: 90 RF: 3 cyclobenzaprine 10 mg Tablet 10 mg PO TID PRN (Reason: Muscle Pain) RF: 0 atorvastatin 80 mg Tablet 40 mg PO BEDTIME RF: 0 gabapentin 100 mg Capsule 100 mg PO TID RF: 0 albuterol sulfate 90 mcg/actuation Hfa Aerosol Inhaler 2 puff INHALATION Q6H PRN (Reason: Shortness Of Breath) RF: 0 Flonase 50 mcg/actuation [place],Suspension 1 spray INTRANASAL DAILY PRN (Reason: Nasal Congestion) RF: 0 naproxen 500 mg Tablet 500 mg PO BID PRN (Reason: Pain) RF: 0 amlodipine 5 mg Tablet 5 mg PO BEDTIME RF: 0 garlic Tablet 2,000 mg PO DAILY RF: 0 Referrals: Archana Membreno MD [Primary Care Provider] - Coding Level of Care Code 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
[2021-02-18 15:19] LABS: Basophils # 0.1 10^3/uL (0.0-0.1); Basophils % 0.7 %; Eosinophils # 0.1 10^3/uL (0.0-0.8); Eosinophils % 0.7 %; Hematocrit 46.5 % (42.0-52.0); Lymphocytes # 1.9 10^3/uL (0.8-4.8); Lymphocytes % 22.9 %; Mean Corpuscular HGB Conc 34.4 g/dL (30.0-36.0); Mean Corpuscular Hemoglobin 30.8 pg (28.0-34.0); Mean Corpuscular Volume 89.4 fl (80-94); Mean Platelet Volume 9.2 fL (7.4-10.4); Monocytes # 0.5 10^3/uL (0.2-0.9); Monocytes % 6.2 %; Neutrophils # 5.68 10^3/uL (1.8-7.7); Neutrophils % 69.3 %; Nucleated Red Blood Cells % 0 %; Platelet Count 299 10^3/cmm (130-400); Red Cell Distribution Width 12.3 % (12.1-15.1); White Blood Count 8.2 10^3/uL (4.0-10.0)
[2021-02-18 15:43] LABS: Partial Thromboplastin Time 27.4 SECONDS (23.9-36.7)
[2021-02-18 15:45] LABS: Troponin(5th) Baseline 12 ng/L (0-15)
[2021-02-18 15:59] LABS: Blood Urea Nitrogen 4 mg/dL (8-23); Calcium 9.6 mg/dL (8.5-10.5); Carbon Dioxide 25 mmol/L (22-29); Chloride 98 mmol/L (98-107); Glomerular Filtration Rate 113.5 mL/min (90-130); Glucose 91 mg/dL (65-115); Osmolality Calculated 274 mOsm/kg (285-295); Sodium 134 mmol/L (136-145)
[2021-02-18 16:00] LABS: Anion Gap 15.4 (5-19); Potassium 4.4 mmol/L (3.5-5.1)
--- NOTE | 2021-02-18 16:52 | ECG_ITS ---
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 Measurements Intervals [place] Rate: 69 P: 66 MD: 200 QRS: 30 QRSD: 129 T: 2 QT: 421 QTc: 452 Interpretive Statements SINUS RHYTHM INFERIOR MYOCARDIAL INFARCTION , PROBABLY OLD [40+ ms Q WAVE AND/OR ST/T ABNORMALITY IN II/aVF] Compared to ECG 11/02/2019 21:14:20 Myocardial infarct finding now present T-wave abnormality no longer present Possible ischemia no longer present Electronically Signed On 02-18-2021 22:48:56 CDT by Goyo Ceron M.D. [id number]
[2021-02-18 17:46] LABS: Troponin 5 2HR 24.09 ng/L (0-15)
[2021-02-18 17:52] LABS: Troponin 5 2HR Delta 12.09 ABS# (0-10)
--- NOTE | 2021-02-18 18:33 | PC.NURSE ---
pt requesting something to eat, unable to order a dinner tray at this time, pt given a sandwich, fruit and pudding.
--- NOTE | 2021-02-18 18:36 | PC.NURSE ---
Dr braden to advise the imaging pt needs will not be available until Sunday, pt asked if he is willing to stay in the hospital until Sunday, pt stated he would rather not stay until then, I have a brother that lives just [address]. Tammy advised, she will update the
--- NOTE | 2021-02-18 19:39 | PC.NURSE ---
Dr Chan gave permission for pt to take his nightly meds.
--- NOTE | 2021-02-18 20:52 | ECG_ITS ---
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 Measurements Intervals [place] Rate: 69 P: 41 KS: 202 QRS: 4 QRSD: 112 T: -10 QT: 416 QTc: 447 Interpretive Statements SINUS RHYTHM INFERIOR MYOCARDIAL INFARCTION , OF INDETERMINATE AGE [40+ ms Q WAVE AND/OR ST/T ABNORMALITY IN II/aVF] MODERATE T-WAVE ABNORMALITY, CONSIDER ANTERIOR ISCHEMIA [-0.1+ mV T-WAVE IN V3/V4] Compared to ECG 02/18/2021 14:25:56 T-wave abnormality now present Possible ischemia now present Myocardial infarct finding still present Electronically Signed On 02-18-2021 22:48:14 CDT by Goyo Ceron M.D. [id number]
[2021-02-18 21:45] LABS: Troponin 5 6HR 51.36 ng/L (0-15)
[2021-02-18 21:54] LABS: Troponin 5 6HR Delta 39.36 ng/L (0-12)
--- NOTE | 2021-02-18 22:10 | ECG_ITS ---
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 Measurements Intervals [place] Rate: 57 P: 62 NM: 196 QRS: 8 QRSD: 119 T: 0 QT: 450 QTc: 440 Interpretive Statements SINUS BRADYCARDIA INFERIOR MYOCARDIAL INFARCTION , PROBABLY OLD [40+ ms Q WAVE AND/OR ST/T ABNORMALITY IN II/aVF] MODERATE T-WAVE ABNORMALITY, CONSIDER ANTERIOR ISCHEMIA [-0.1+ mV T WAVE IN V3/V4] Compared to ECG 02/18/2021 18:48:47 Sinus rhythm no longer present Myocardial infarct finding still present T-wave abnormality still present Possible ischemia still present Electronically Signed On 02-20-2021 18:37:50 CDT by Momo Poole M.D. [id number]
--- NOTE | 2021-02-18 22:51 | P.HP_ITS ---
Providers/Chief Complaint Admitting Physician: Kenneth Mars MD Primary Care Provider: Archana Membreno MD Chief Complaint: CP, Difficulty Breathing History of Present Illness Shayan Flanagan is a 66 year old male with a history of reactive disease status post drug-eluting stents after an NSTEMI in March 2017 status post proximal and mid LAD stenting in with circumflex stenting, known atrial fibrillation on anticoagulation with Eliquis presented to the ER today with chief complains of chest pain that started around 230 this morning. Pain started at rest, nonradiating, located in the center of the chest, felt as a heaviness. By the time he presented to the ER he said pain was much relieved. Did not take any nitroglycerin. At this present time he is chest pain-free. EKG does not show any acute ST-T wave changes. Troponin was at 12, increased to 24 at 2 hours and then 51 at 6 hours, with delta as of 12 and 39 respectively. As an outpatient he is on Plavix and Eliqui s. Aspirin was recently discontinued about a month ago.no fever, dyspnea, palpitations ,syncope, diaphoresis, nausea or vomiting Review of Systems General: Reports: 10 or more systems reviewed and unremarkable except in HPI and below Const: Denies: fever(s), chills or body aches Eyes: Denies: change in vision, blurry vision or photophobia ENMT: Reports: hoarseness; Denies: throat pain, enlarged tonsils, odynophagia or nasal congestion Card: Denies: chest pain, palpitations, irregular heart rhythm, edema, swelling of feet/ankles, lightheadedness, pre-syncope, dyspnea on exertion or orthopnea Resp: Denies: dyspnea, productive cough, non-productive cough, wheezing, stridor, pain on inspiration, change in phlegm color, hemoptysis or chest congestion GI: Denies: abdominal pain, nausea, vomiting, hematemesis, coffee ground emesis, dysphagia, heartburn, diarrhea, constipation, GI cramping, change in stool character, hematochezia or melena : Denies: flank pain, dysuria, urinary frequency, urinary urgency, urinary hesitancy or hematuria Musc: Denies: neck pain, back pain, extremity pain, joint swelling, joint warmth or deformity Neuro: Denies: headache(s), numbness in extremities, weakness in extremities, sensory changes, difficulty walking, frequent falls, dizziness, vertigo, behavioral changes, Slurred speech present or seizure-like activity Psych: Denies: anxiety, depression, suicidal ideation or homicidal ideation Endo: Denies: polyuria, polydipsia, tired all the time, cold intolerance or hot flashes Adam/Lymph: Denies: easy bruising or easy bleeding Medications/Allergies Home Medications Medication Instructions Recorded Confirmed Last Taken Type cetirizine 10 mg capsule 10 mg PO DAILY 05/20/19 02/18/21 02/18/21 History cholecalciferol (vitamin D3) 25 2,000 unit PO DAILY cap 05/20/19 02/18/21 02/18/21 History mcg (1,000 unit) capsule nitroglycerin 0.4 mg sublingual 0.4 mg SUBLINGUAL Q5M PRN 05/20/19 02/18/21 Unknown History tablet amlodipine 5 mg PO BEDTIME 11/02/19 02/18/21 02/17/21 History garlic 2,000 mg PO DAILY 11/02/19 02/18/21 02/18/21 History metoprolol tartrate 75 mg tablet 75 mg PO BID #180 tab 11/19/19 02/18/21 02/18/21 Rx aspirin 81 mg tablet,delayed 81 mg PO DAILY #90 tab 12/26/19 02/18/21 02/18/21 Rx release apixaban 5 mg tablet 5 mg PO BID #180 tab 06/22/20 02/18/21 02/18/21 Rx losartan 50 mg tablet 50 mg PO DAILY #90 tab 08/27/20 02/18/21 02/18/21 Rx clopidogrel 75 mg tablet 75 mg PO DAILY 01/06/21 02/18/21 02/18/21 History albuterol sulfate 2 puff INHALATION Q6H PRN 02/18/21 02/18/21 Unknown History atorvastatin 40 mg PO BEDTIME 02/18/21 02/18/21 02/17/21 History cyclobenzaprine 10 mg PO TID PRN 02/18/21 02/18/21 Unknown History fluticasone propionate [Flonase] 1 spray INTRANASAL DAILY PRN 02/18/21 02/18/21 Unknown History gabapentin 100 mg PO TID 02/18/21 02/18/21 02/18/21 History naproxen 500 mg PO BID PRN 02/18/21 02/18/21 Unknown History Allergies Allergy/AdvReac Type Severity Reaction Status Date / Time No Known Allergies Allergy Verified 12/26/19 11:28 PFSH Acute PFSH: Medical History Atherosclerotic heart disease of [place] coronary artery without angina pectoris Coronary stent patent Essential (primary) hypertension Hepatitis A Mixed hyperlipidemia Myocardial infarction Tobacco use Family History Grandmother Stroke Hypertension Father Hypertension Diabetes Mother Stroke Diabetes Social History Smoking and tobacco status: current every day smoker cigarettes Packs smoked per day: 1 Alcohol intake: never Lives independently: Yes Household members: friend(s) Current occupational status: retired Vitals/I&O/Wt Last Vital Signs Temp 97.7 F 02/18/21 14:52 Pulse 56 L 02/18/21 22:00 Resp 16 02/18/21 19:44 BP 139/94 02/18/21 21:30 Pulse Ox 95 02/18/21 21:24 Weight last 48 hrs Weight 74.389 kg Physical Exam Narrative: EXAM NARRATIVE: General: No acute distress, AO x3 HEENT: PERRLA, pupils bilaterally equal and reactive, pallors not present Chest: Normal vesicular breath sounds, no added sounds, equal good air entry bilaterally CVS: S1-S2 regular, no murmurs, no tachycardia, no gallops, no rubs Abdomen: Soft, nontender, no organomegaly, bowel sounds present Neuro: No focal deficits, no facial deformity, AO x3, power 5/5 in all limbs Extremities: no edema, clubbing or cyanosis Data : 02/18/21 15:08 02/18/21 15:08 A&P Assessment and plan (1) NSTEMI (non-ST elevated myocardial infarction): Patient with a past medical history significant for CAD presenting today with chest pain with increasing to one 6-hour troponins. Currently chest pain-free. No acute ST-T wave changes on EKG. Overall concern for NSTEMI. Continue Plavix 75 mg p.o. daily, stop Eliquis for now and changed to Lovenox 1 mg/kg every 12 hours. Continue statin History of A. fib, currently with sinus bradycardia with heart rate between 56- 60. Cardiology consult in a.m. N.p.o. after midnight in case cardiac cath needed. 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
[2021-02-19] VITALS (22 sets, daily range): BP systolic 119–155; BP diastolic 80–93; PULSE 60–80; RESP 14–32; TEMP 36.5; O2SAT 93–95
[2021-02-19] MEDS: enoxaparin 80 mg/0.8 mL Syringe 70 MG SUBCUT ×3 (00:57→23:00)
--- NOTE | 2021-02-19 02:56 | PC.NURSE ---
patient did not want to leave telemetry on due to comfort, will monitor vital signs intermittently to try and keep patient compliance.
[2021-02-19 04:12] LABS: Basophils # 0.1 10^3/uL (0.0-0.1); Basophils % 1.2 %; Eosinophils # 0.2 10^3/uL (0.0-0.8); Eosinophils % 2.8 %; Hematocrit 46.1 % (42.0-52.0); Hemoglobin 15.4 g/dL (11.7-16.6); Lymphocytes # 2.2 10^3/uL (0.8-4.8); Lymphocytes % 34.2 %; Mean Corpuscular HGB Conc 33.4 g/dL (30.0-36.0); Mean Corpuscular Hemoglobin 30.6 pg (28.0-34.0); Mean Corpuscular Volume 91.7 fl (80-94); Mean Platelet Volume 9.5 fL (7.4-10.4); Monocytes # 0.6 10^3/uL (0.2-0.9); Monocytes % 8.5 %; Neutrophils # 3.44 10^3/uL (1.8-7.7); Nucleated Red Blood Cells % 0 %; Platelet Count 258 10^3/cmm (130-400); Red Blood Count 5.03 10^6/uL (4.1-5.3); Red Cell Distribution Width 12.4 % (12.1-15.1); White Blood Count 6.5 10^3/uL (4.0-10.0)
[2021-02-19 04:40] LABS: Anion Gap 15.1 (5-19); Blood Urea Nitrogen 6 mg/dL (8-23); Calcium 9.1 mg/dL (8.5-10.5); Carbon Dioxide 25 mmol/L (22-29); Chloride 98 mmol/L (98-107); Glomerular Filtration Rate 97.3 mL/min (90-130); Glucose 89 mg/dL (65-115); Osmolality Calculated 275 mOsm/kg (285-295); Potassium 4.1 mmol/L (3.5-5.1); Sodium 134 mmol/L (136-145)
--- NOTE | 2021-02-19 07:11 | USCV_ITS ---
Shayan Flanagan Age: 66 Gender: M : 1955 Exam Date: 02/19/2021 07:59 Ordering Phys: Myrna Gore MD Technologist: Exam Location: [facility] Indication: NSTEMI BP: 145 / 75 HR: 58 Rhythm: Sinus Technical Quality: Adequate MEASUREMENTS (Male / Female) Normal Values 2D ECHO LV Diastolic Diameter PLAX 5.3 cm 4.2 - 5.9 / 3.9 - 5.3 cm LV Systolic Diameter PLAX 4.0 cm IVS Diastolic Thickness 1.3 cm 0.6 - 1.0 / 0.6 - 0.9 cm IVS Systolic Thickness 1.5 cm LVPW Diastolic Thickness 0.9 cm 0.6 - 1.0 / 0.6 - 0.9 cm LVPW Systolic Thickness 1.6 cm LVOT Diameter 1.8 cm LV Ejection Fraction 2D Teich 48.4 % LV Ejection Fraction MOD 2C 55.4 % LV Ejection Fraction 2C AL 55.9 % LA Diameter 2.5 cm LA Width 4.5 cm LA Height 5.9 cm RA Width 4.0 cm RA Height 4.7 cm Aorta at Sinotubular Diameter 2.9 cm DOPPLER AV Peak Velocity 119.0 cm/s LVOT Peak Velocity 103.0 cm/s AV Area Cont Eq vti 2.0 cm squared AV Area Cont Eq pk 2.3 cm squared MV Area PHT 5.0 cm squared Mitral E to A Ratio 0.8 MV E' Velocity 37.0 cm/s Mitral E to MV E' Ratio 12.4 Mitral E to LV E' Lateral Ratio 12.8 Mitral E to LV E' Septal Ratio 12.2 TR Peak Velocity 144.5 cm/s TR Peak Gradient 8.4 mmHg TV Peak E Velocity 87.0 cm/s Right Atrial Pressure 3.0 mmHg Pulmonary Artery Systolic Pressu 11.4 mmHg FINDINGS Left Ventricle Diffuse hypokinesia of the left ventricle. Mildly dilated LV cavity. Dyskinetic basal inferior wall segment. Overall LV ejection fraction is around 40% Right Ventricle The right ventricle is normal in size and function. Right Atrium The right atrium is normal in size. Left Atrium The left atrium is normal in size. Mitral Valve Thickened mitral valve. Aortic Valve Thickened aortic valve. Some features of aortic valve sclerosis Tricuspid Valve No gross abnormalities noted Pulmonic Valve No gross abnormalities noted Pericardium Normal pericardium without effusion. Aorta Normal ascending aorta dimension. CONCLUSIONS Diffuse hypokinesia of the left ventricle. Mildly dilated LV cavity. Dyskinetic basal inferior wall segment. Overall LV ejection fraction is around 40%. Thickened aortic and mitral valve the features of aortic valve sclerosis. There is no pericardial effusion. There are no intracardiac masses. Compared to the study from 11/03/2019, there may not be a significant change Dr Momo Poole MD [facility] (Electronically Signed) Final Date: 19 February 2021 14:08 S
--- NOTE | 2021-02-19 09:08 | PM.CONSULT ---
Providers/Reason For Consult Consulting Physician/Specialty*: EDDY Poole MD/cardiology Reason for Consult*: Patient with history of coronary artery disease and PCI's, presenting with chest pain and elevated troponin T Attending Physician: Kenneth Mars MD Primary Care Provider: Archana Membreno MD History of Present Illness History of Present Illness Shayan Flanagan is a 66 year old male with a history of coronary disease, status post multiple PCI's, essential benign hypertension, dyslipidemia, atrial fibrillation and ischemic cardiomyopathy is presenting with complaints of chest pain. Mr. Flanagan is admitted to hospital with complaints of recurrent episodes of prolonged chest pains. He is known to have coronary disease and had multiple PCI's in the past. The first myocardial infarction was in 2012. At that time, he had a very complicated course. Accordingto the patient, he was defibrillated 10 times during that hospital admission. He underwent a cardiac catheterization followed by PCI of the left artery descending artery and circumflex artery in [facility]. Details are not available. He had a second myocardial infarction in 2018. At that time, he underwent PCI of the right coronary artery. He had a total of 3 stents in 2012 and 2 stents in the RCA in 2018. Apparently he has been doing okay since the last coronary intervention. However he has been having some generalized fatigue and weakness causing him to limit his activities. He also has some amount of shortness of breath with activities. No orthopnea PND. No fever chills or cough. On last Sunday, he started having a pressure-like squeezing sensation in the chest associated with some shortness of breath. This episode might have lasted for couple of hours. The intensity was mild. On the day of admission, he had a another episode of prolonged chest tightness with shortness of breath. The intensity of the pain was 8/10. He had a choking feeling associated with some dizziness. He felt extremely weak in his lower extremities. The symptoms might have lasted for an hour or so. He took some of his morning medication during this time. His symptoms gradually subsided. He drove himself to the emergency room following this episode. He has not had a recurrence of chest pain since hospital admission. Apart from the shortness of breath, headache and dizziness, he did not have any other associated symptoms. The tightness was across the chest. No other radiation of pain. According to him, has been compliant with medications. He is on long-term oral anticoagulation for atrial fibrillation. No bleeding complications. Denies any fever, chills or cough. He was incarcerated many years ago and is currently wearing an ankle monitor for the [employer]. He has a longstanding still smoking abuse. Smokes a pack a day. No alcohol abuse or any other substance abuse. Review of Systems Narrative: CONSTITUTIONAL: No fever or chills. Has some dyspnea on exertion and weakness. EYES: He has cataract in the right eye. Had surgery for the cataract in the left eye. ENT: No hoarseness of voice, auditory disturbances or sore throat. CARDIOVASCULAR: As mentioned above. RESPIRATORY: No significant cough. GASTROINTESTINAL: No hematemesis or melena. GENITOURINARY: No dysuria or hematuria. INTEGUMENTARY: No skin rashes or history of skin cancer. NEURO: Headache and dizziness as mentioned above. PSYCHIATRIC: No history of psychosis or major depression. HEMATOLOGIC: No bleeding disorders or significant anemia. ENDOCRINE: No history of polyuria or polydipsia. MUSCULOSKELETAL: Patient has a chronic numbness of the left upper extremity. ALLERGY/IMMUNOLOGY: As mentioned above. Meds/Allergies Home Medications and Allergies Home Medications Medication Instructions Recorded Confirmed Last Taken Type cetirizine 10 mg capsule 10 mg PO PRN 05/20/19 02/19/21 Unknown History cholecalciferol (vitamin D3) 25 2,000 unit PO DAILY cap 05/20/19 02/18/21 02/18/21 History mcg (1,000 unit) capsule nitroglycerin 0.4 mg sublingual 0.4 mg SUBLINGUAL Q5M PRN 05/20/19 02/18/21 Unknown History tablet amlodipine 5 mg PO BEDTIME 11/02/19 02/18/21 02/17/21 History garlic 2,000 mg PO DAILY 11/02/19 02/18/21 02/18/21 History metoprolol tartrate 75 mg tablet 75 mg PO BID #180 tab 11/19/19 02/18/21 02/18/21 Rx aspirin 81 mg tablet,delayed 81 mg PO DAILY #90 tab 12/26/19 02/19/21 Unknown Rx release apixaban 5 mg tablet 5 mg PO BID #180 tab 06/22/20 02/18/21 02/18/21 Rx losartan 50 mg tablet 50 mg PO DAILY #90 tab 08/27/20 02/18/21 02/18/21 Rx clopidogrel 75 mg tablet 75 mg PO DAILY 01/06/21 02/18/21 02/18/21 History albuterol sulfate 2 puff INHALATION Q6H PRN 02/18/21 02/18/21 Unknown History atorvastatin 40 mg PO BEDTIME 02/18/21 02/18/21 02/17/21 History cyclobenzaprine 10 mg PO TID PRN 02/18/21 02/18/21 Unknown History fluticasone propionate [Flonase] 1 spray INTRANASAL DAILY PRN 02/18/21 02/18/21 Unknown History gabapentin 100 mg PO TID 02/18/21 02/18/21 02/18/21 History naproxen 500 mg PO BID PRN 02/18/21 02/18/21 Unknown History Allergies Allergy/AdvReac Type Severity Reaction Status Date / Time No Known Allergies Allergy Verified 12/26/19 11:28 Current Medications Current Medications Generic Name Dose Route Start Last Admin Trade Name Freq PRN Reason Stop Dose Admin Enoxaparin Sodium 70 mg 02/18/21 23:30 02/19/21 00:57 Enoxaparin 80 Mg/0.8 Ml Syringe SUBCUT 70 mg Q12H BRIAN Administration PFSH Acute PFSH: Medical History Atherosclerotic heart disease of [place] coronary artery without angina pectoris Coronary stent patent Essential (primary) hypertension Hepatitis A Mixed hyperlipidemia Myocardial infarction Tobacco use Family History Grandmother Stroke Hypertension Father Hypertension Diabetes Mother Stroke Diabetes Social History Smoking and tobacco status: current every day smoker cigarettes Packs smoked per day: 1 Alcohol intake: never Lives independently: Yes Household members: friend(s) Current occupational status: retired Vitals/I&O/Wt Last Vital Signs Temp 97.7 F 02/18/21 14:52 Pulse 60 02/19/21 06:00 Resp 14 02/19/21 04:00 BP 141/83 02/19/21 04:00 Pulse Ox 94 02/19/21 04:00 Weight last 48 hrs Weight 164 lb Physical Exam Narrative: EXAM NARRATIVE: GENERAL: The patient is alert and oriented times three. Not in any acute distress. HEENT: No significant pallor, icterus or lymphadenopathy. The pupils are reactant to light. Oral cavity: There are no mucous membrane lesions. Funduscopic examination: The fundus is not visualized NECK: Trachea appears to be central. No masses noted. No JVD or thyromegaly appreciated. No carotid bruit. RESPIRATORY: Chest is symmetrical. No intercostals muscle retraction or any accessory muscle activation. There is no chest wall tenderness. Breath sounds are heard bilaterally. No rales or rhonchi heard. No evidence of any consolidation. BREASTS: Deferred. HEART: The PMI is in the 5th left intercostals space just inside the midclavicular line. No palpable precordial events. S1 and S2 are normal. No S3 or S4 heard. No pericardial rub or any click heard. ABDOMEN: No vessel pulsations or distention. No tenderness. No organomegaly appreciated. No abdominal bruit. Bowel sounds are normally heard. : Deferred. RECTAL: Deferred. LYMPHATIC: No lymphadenopathy noted in the neck or groin. EXTREMITIES: No edema or cyanosis. No clubbing. The pulses are symmetrical bilaterally. The radial, femoral, dorsalis pedis and the posterior tibial pulses are palpated and found to be in good volume and amplitude. MUSCULOSKELETAL: No acute joint deformities or swelling. SKIN: There are no significant scars or skin rash noted. NEUROPSYCHIATRIC: The patient is alert and oriented x3. Appears to be in a good mood. The higher functions -he has difficulty in recalling details of the past events. No tremors or rigidity noted. Data Labs: Other Labs: Laboratory Last Values WBC 6.5 10^3/uL (4.0- 10.0) 02/19/21 03:45 RBC 5.03 10^6/uL (4.1 -5.3) 02/19/21 03:45 Hgb 15.4 g/dL (11.7-1 6.6) 02/19/21 03:45 Hct 46.1 % (42.0-52.0 ) 02/19/21 03:45 MCV 91.7 fl (80-94) 02/19/21 03:45 MCH 30.6 pg (28.0-34. 0) 02/19/21 03:45 MCHC 33.4 g/dL (30.0-3 6.0) 02/19/21 03:45 RDW 12.4 % (12.1-15.1 ) 02/19/21 03:45 Plt Count 258 10^3/cmm (130 -400) 02/19/21 03:45 MPV 9.5 fL (7.4-10.4) 02/19/21 03:45 Neut % (Auto) 53.0 % 02/19/21 03:45 Lymph % (Auto) 34.2 % 02/19/21 03:45 Parke % (Auto) 8.5 % 02/19/21 03:45 Eos % (Auto) 2.8 % 02/19/21 03:45 Baso % (Auto) 1.2 % 02/19/21 03:45 Neut # (Auto) 3.44 10^3/uL (1.8 -7.7) 02/19/21 03:45 Lymph # (Auto) 2.2 10^3/uL (0.8- 4.8) 02/19/21 03:45 Parke # (Auto) 0.6 10^3/uL (0.2- 0.9) 02/19/21 03:45 Eos # (Auto) 0.2 10^3/uL (0.0- 0.8) 02/19/21 03:45 Baso # (Auto) 0.1 10^3/uL (0.0- 0.1) 02/19/21 03:45 Nucleated RBC % (a uto) 0 % 02/19/21 03:45 Nucleated RBCs # 0.0 /100WBC 02/19/21 03:45 APTT 27.4 SECONDS (23. 9-36.7) 02/18/21 15:08 Sodium 134 mmol/L (136-1 45) L 02/19/21 03:45 Potassium 4.1 mmol/L (3.5-5 .1) 02/19/21 03:45 Chloride 98 mmol/L (98-107 ) 02/19/21 03:45 Carbon Dioxide 25 mmol/L (22-29) 02/19/21 03:45 Anion Gap 15.1 (5-19) 02/19/21 03:45 BUN 6 mg/dL (8-23) L 02/19/21 03:45 Creatinine 0.8 mg/dL (0.7-1. 2) 02/19/21 03:45 GFR Calculation 97.3 mL/min (90-1 30) 02/19/21 03:45 Glucose 89 mg/dL (65-115) 02/19/21 03:45 Calculated Osmolal ity 275 mOsm/kg (285- 295) L 02/19/21 03:45 Calcium 9.1 mg/dL (8.5-10 .5) 02/19/21 03:45 Troponin T Baselin e 12 ng/L (0-15) 02/18/21 15:08 Troponin T 120 Min [place] 24.09 ng/L (0-15) H 02/18/21 17:06 Delta Troponin T 12.09 ABS# (0-10) H* 02/18/21 17:06 Troponin T Hi Sens 6Hr 51.36 ng/L (0-15) H 02/18/21 21:08 Troponin T Hi Sens 6Hr Delta 39.36 ng/L (0-12) H* 02/18/21 21:08 EKG^: EKG 1: My Interpretation: Sinus bradycardia with a heart rate of 57 bpm. Features of old inferior wall myocardial infarction. Diffuse nonspecific T wave changes. A&P Assessment and plan (1) NSTEMI (non-ST elevated myocardial infarction): The patient is a clinical features are consistent with unstable angina complicated with non-ST elevation myocardial infarction. Currently the patient is pain-free. Hemodynamically seems to be stable. He will be continued on the beta-clover, nitrates, aspirin, Plavix and Lovenox. The statin drug may be continued. I will be reviewing his echocardiogram. Patient may require a cardiac catheterization, to further evaluate his coronary status. But because of the Eliquis and also since the patient is pain-free, we may wait for at least 48 hours prior to proceeding with the intervention. He will be closely monitored on telemetry. Status: Acute (2) Atrial fibrillation: Currently the patient is in sinus rhythm. The Eliquis is held. Patient is on Lovenox which may be continued. Status: Acute Qualifiers: Atrial fibrillation type: paroxysmal Qualified Code(s): I48.0 - Paroxysmal atrial fibrillation (3) Mixed hyperlipidemia: We will continue on the Lipitor. Patient apparently has no side effects with this medication. Status: Chronic (4) Essential (primary) hypertension: Currently the blood pressure is a stage II. We will try to optimize the antihypertensive medications. Status: Chronic (5) Ischemic cardiomyopathy: Patient is on an ARB. If his ejection fraction still 45% or low, we may consider starting him on Entresto. Status: Acute Additional A&P Information Based on the clinical progress and the results of the above, further recommendations will be made. Thank you for the opportunity to eval this patient and make these recommendations. Consult Attestations Medical Necessity Statement: Patient requires continued hospital stay for close monitoring and further management Coding Level of Care Code Acute Custom Stock Maker for g Fwd History Detailed Exam Detailed Medical Decision Making High Complexity Diagnoses NSTEMI (non-ST elevated myocardial infarction) I21.4 Atrial fibrillation I48.0 Atrial fibrillation type: paroxysmal Mixed hyperlipidemia E78.2 Essential (primary) hypertension I10 Ischemic cardiomyopathy I25.5 Time Spent (min) 65
[2021-02-19 09:34] LABS: Chol HDL Ratio 3.11 mg/dL (1.0-5.00); Cholesterol 140 mg/dL (0-200); HDL Cholesterol 45 mg/dL (60-100); LDL Cholesterol Calculated 76 mg/dL (50-129); Triglycerides 96 mg/dL (0-150); VLDL Cholestrol Calculation 19 mg/dL (0-30)
[2021-02-19] MEDS: clopidogrel 75 mg Tablet PO (09:56)
[2021-02-19] MEDS: pantoprazole DR 40 mg Tablet PO (09:56)
[2021-02-19] MEDS: metoprolol tartrate 25 mg Tablet 75 MG PO ×2 (10:00→17:05)
[2021-02-19] MEDS: gabapentin 100 mg Capsule PO ×3 (10:01→21:10)
[2021-02-19 11:32] LABS: Estmated Average Glucose 111; Hemoglobin A1C 5.5 % (4.0-6.0)
[2021-02-19] MEDS: losartan 50 mg Tablet PO (11:59)
--- NOTE | 2021-02-19 12:28 | P.PN_ITS ---
Subjective Subjective: Interval history: No acute events overnight. Patient on examination lying comfortably in bed. States he does not have any further chest pain. Denies any nausea, vomiting, headache. Vitals/I&O/Wt Last Vital Signs Temp 97.7 F 02/18/21 14:52 Pulse 62 02/19/21 10:39 Resp 15 02/19/21 10:39 BP 155/90 02/19/21 10:39 Pulse Ox 94 02/19/21 10:39 02/18/21 02/19/21 02/19/21 22:59 06:59 14:59 Intake Total 596 / 596 Balance 596 / 596 Weight last 48 hrs Weight 74.389 kg Physical Exam Narrative: EXAM NARRATIVE: General: No acute distress, AO x3 HEENT: PERRLA, pupils bilaterally equal and reactive Chest: Normal vesicular breath sounds, no added sounds, equal good air entry bilaterally CVS: S1-S2 regular, no murmurs, no tachycardia, no gallops, no rubs Abdomen: Soft, nontender, no organomegaly, bowel sounds present Neuro: No focal deficits, no facial deformity, AO x3, power 5/5 in all limbs Data : 02/19/21 03:45 02/19/21 03:45 A&P Assessment and plan (1) NSTEMI (non-ST elevated myocardial infarction): Troponin trend up. Continue with Plavix, statin. Check HbA1c, lipid panel. Morphine and nitro as needed. Continue with Lovenox 1 mg/kg body weight every 12 hourly. Continue with beta-clover and SEGUNDO inhibitor. Appreciate cardiology recommendations. Plan for cardiac cath tomorrow 48 hours after last dose of Eliquis. Cardiac diet. N.p.o. after midnight. Status: Acute (2) Atrial fibrillation: Rate controlled. Continue with home dose of metoprolol. Eliquis withheld for cardiac cath. Continue with full dose Lovenox. Status: Acute Qualifiers: Atrial fibrillation type: paroxysmal Qualified Code(s): I48.0 - Paroxysmal atrial fibrillation (3) Essential (primary) hypertension: Goal blood pressure less than 140/90 mmHg. Continue with home dose of metoprolol and losartan. Status: Chronic (4) Atherosclerotic heart disease of [place] coronary artery without angina pectoris: Status: Chronic Qualifiers: [place] vs. transplanted heart: [place] heart Qualified Code(s): I25.10 - Atherosclerotic heart disease of [place] coronary artery without angina pectoris Attestations Medical Necessity Statement*: Requires further hospitalization for management of non-ST ovation RI in setting of previous history of CAD Time Spent in Patient Care: Greater than 35 minutes (>than 50% of time spent in counselling and/or direct pt care on unit) . Coding Level of Care Code Acute Installation Coordinator for [facility] Fwd Diagnoses NSTEMI (non-ST elevated myocardial infarction) I21.4 Atrial fibrillation I48.0 Atrial fibrillation type: paroxysmal Essential (primary) hypertension I10 Atherosclerotic heart disease of [place] coronary artery without angina pectoris I25.10 [place] vs. transplanted heart: [place] heart
[2021-02-19] MEDS: amlodipine 5 mg Tablet PO (21:10)
[2021-02-19] MEDS: atorvastatin 40 mg Tablet PO (21:10)
[2021-02-20] VITALS (75 sets, daily range): BP systolic 117–164; BP diastolic 72–116; PULSE 54–92; RESP 5–27; TEMP 36.7–36.8; O2SAT 92–97
[2021-02-20 04:26] LABS: Basophils # 0.1 10^3/uL (0.0-0.1); Basophils % 1.1 %; Eosinophils # 0.2 10^3/uL (0.0-0.8); Hematocrit 43.3 % (42.0-52.0); Hemoglobin 14.8 g/dL (11.7-16.6); Lymphocytes # 2.7 10^3/uL (0.8-4.8); Lymphocytes % 41.7 %; Mean Corpuscular HGB Conc 34.2 g/dL (30.0-36.0); Mean Corpuscular Hemoglobin 30.3 pg (28.0-34.0); Mean Corpuscular Volume 88.7 fl (80-94); Mean Platelet Volume 9.7 fL (7.4-10.4); Monocytes # 0.5 10^3/uL (0.2-0.9); Monocytes % 7.6 %; Neutrophils # 2.98 10^3/uL (1.8-7.7); Neutrophils % 46.4 %; Nucleated Red Blood Cells % 0 %; Platelet Count 287 10^3/cmm (130-400); Red Blood Count 4.88 10^6/uL (4.1-5.3); White Blood Count 6.4 10^3/uL (4.0-10.0)
[2021-02-20 04:44] LABS: Alanine Aminotransferase 12 U/L (0-41); Albumin Level 3.7 g/dL (3.5-5.2); Alkaline Phosphatase 66 IU/L (40-130); Anion Gap 14.6 (5-19); Aspartate Amino Transferase 19 U/L (0-40); Blood Urea Nitrogen 9 mg/dL (8-23); Calcium 8.9 mg/dL (8.5-10.5); Carbon Dioxide 27 mmol/L (22-29); Chloride 98 mmol/L (98-107); Globulin 2.1 g/dL (1.3-4.6); Glucose 92 mg/dL (65-115); Osmolality Calculated 278 mOsm/kg (285-295); Potassium 4.6 mmol/L (3.5-5.1); Sodium 135 mmol/L (136-145); Total Bilirubin 0.4 mg/dL (0.15-1.2); Total Protein 5.8 g/dL (6.6-8.7)
--- NOTE | 2021-02-20 07:28 | PC.NURSE ---
Upon bedside report pt presents lying in bed resting with eyes closed right lateral recumbent position. Pt resp even and non-labored no distress or sob noted. Pt had no s/s of pain or discomfort at the present time. Call light in reach. Will continue to monitor.
[2021-02-20] MEDS: losartan 50 mg Tablet PO (10:01)
[2021-02-20] MEDS: gabapentin 100 mg Capsule PO ×2 (10:01→20:54)
[2021-02-20] MEDS: metoprolol tartrate 25 mg Tablet 75 MG PO ×2 (10:02→18:03)
[2021-02-20] MEDS: clopidogrel 75 mg Tablet PO (10:02)
[2021-02-20] MEDS: dextrose 5%-sod chloride 0.45% 1,000 ML 100 ML IV (10:03)
--- NOTE | 2021-02-20 12:59 | PM.PN ---
Subjective Subjective: Interval history: The patient has generally been doing okay. Has not had any significant recurrence of chest pain, since the hospital admission. He has some amount of shortness of breath with activities. Denies any fever or chills. Medications: Reviewed: Yes Medication Review Details: Current Medications Acetaminophen (Acetaminophen 325 Mg Tablet) 650 mg PO Q6H PRN PRN Reason: Mild/Mod Pain Or Temp >/= 101 Albuterol Sulfate (Albuterol 8 Gm Mdi) 2 puff INHALATION Q6H PRN PRN Reason: Shortness Of Breath Amlodipine Besylate (Amlodipine 5 Mg Tablet) 5 mg PO BEDTIME [facility] Last Admin: 02/19/21 21:10 Dose: 5 mg Documented by: Atorvastatin Calcium (Atorvastatin 40 Mg Tablet) 40 mg PO BEDTIME [facility] Last Admin: 02/19/21 21:10 Dose: 40 mg Documented by: Clopidogrel Bisulfate (Clopidogrel 75 Mg Tablet) 75 mg PO DAILY [facility] Last Admin: 02/20/21 10:02 Dose: 75 mg Documented by: Cyclobenzaprine HCl (Cyclobenzaprine 10 Mg Tablet) 10 mg PO TID PRN PRN Reason: Muscle Pain Enoxaparin Sodium (Enoxaparin 80 Mg/0.8 Ml Syringe) 70 mg SUBCUT Q12H [facility] Last Admin: 02/20/21 10:12 Dose: Not Given Documented by: Gabapentin (Gabapentin 100 Mg Capsule) 100 mg PO TID [facility] Last Admin: 02/20/21 10:01 Dose: 100 mg Documented by: Dextrose/Sodium Chloride (Dextrose 5%-Sod Chloride 0.45%) 1,000 mls @ 100 mls/hr IV .Q10H [facility] Last Admin: 02/20/21 10:03 Dose: 100 mls/hr Documented by: Losartan Potassium (Losartan 50 Mg Tablet) 50 mg PO DAILY [facility] Last Admin: 02/20/21 10:01 Dose: 50 mg Documented by: Losartan Potassium (Losartan 50 Mg Tablet) 50 mg PO ONCE [facility] Last Admin: 02/19/21 11:59 Dose: 50 mg Documented by: Metoprolol Tartrate (Metoprolol Tartrate 25 Mg Tablet) 75 mg PO BID [facility] Last Admin: 02/20/21 10:02 Dose: 75 mg Documented by: Morphine Sulfate (Morphine 4 Mg/Ml Sdv 1 Ml) 2 mg IVP Q4H PRN PRN Reason: SEVERE PAIN Naloxone HCl (Naloxone 0.4 Mg/Ml Sdv) 0.1 mg IVP Q2M PRN PRN Reason: OPIATERV Nitroglycerin (Nitroglycerin 0.4 Mg Sublingual Tablet) 0.4 mg SUBLINGUAL Q5M PRN PRN Reason: Chest Pain Ondansetron HCl (Ondansetron 2 Mg/Ml Sdv 2 Ml) 4 mg IVP Q6H PRN PRN Reason: NAUSEA AND VOMITING Pantoprazole Sodium (Pantoprazole Dr 40 Mg Tablet) 40 mg PO DAILY [facility] Last Admin: 02/20/21 11:50 Dose: Not Given Documented by: Vitals/I&O/Wt Last Vital Signs Temp 98.3 F 02/20/21 08:00 Pulse 64 02/20/21 12:00 Resp 21 H 02/20/21 12:00 BP 120/77 02/20/21 12:00 Pulse Ox 97 02/20/21 12:00 02/19/21 02/20/21 02/20/21 22:59 06:59 14:59 Intake Total 590 / 1186 240 / 240 Balance 590 / 1186 240 / 240 Weight last 48 hrs Weight 164 lb Physical Exam Narrative: EXAM NARRATIVE: GENERAL: The patient is alert and oriented times three. Not in any acute distress. HEENT: No significant pallor, icterus or lymphadenopathy. The pupils are reactant to light. Oral cavity: There are no mucous membrane lesions. NECK: Trachea appears to be central. No masses noted. No JVD or thyromegaly appreciated. No carotid bruit. RESPIRATORY: Chest is symmetrical. No intercostals muscle retraction or any accessory muscle activation. There is no chest wall tenderness. Breath sounds are heard bilaterally. No rales or rhonchi heard. No evidence of any consolidation. BREASTS: Deferred. HEART: The heart sounds are normal. No S3 or S4. Short systolic murmur in the mitral area. No diastolic murmurs. No pericardial rub ABDOMEN: No vessel pulsations or distention. No tenderness. No organomegaly appreciated. No abdominal bruit. Bowel sounds are normally heard. : Deferred. RECTAL: Deferred. LYMPHATIC: No lymphadenopathy noted in the neck or groin. EXTREMITIES: No edema or cyanosis. No clubbing. The peripheral pulses are palpable but somewhat of low volume MUSCULOSKELETAL: No acute joint deformities or swelling. SKIN: There are no significant scars or skin rash noted. NEUROPSYCHIATRIC: The patient is alert and oriented x3. Appears to be in a good mood. The higher functions -he has difficulty in recalling details of the past events. No tremors or rigidity noted. Data : 02/20/21 03:35 02/20/21 03:35 Other Labs: Laboratory Last Values WBC 6.4 10^3/uL (4.0-10.0) 02/20/21 03:35 RBC 4.88 10^6/uL (4.1-5.3) 02/20/21 03:35 Hgb 14.8 g/dL (11.7-16.6) 02/20/21 03:35 Hct 43.3 % (42.0-52.0) 02/20/21 03:35 MCV 88.7 fl (80-94) 02/20/21 03:35 MCH 30.3 pg (28.0-34.0) 02/20/21 03:35 MCHC 34.2 g/dL (30.0-36.0) 02/20/21 03:35 RDW 12.0 % (12.1-15.1) L 02/20/21 03:35 Plt Count 287 10^3/cmm (130-400) 02/20/21 03:35 MPV 9.7 fL (7.4-10.4) 02/20/21 03:35 Neut % (Auto) 46.4 % 02/20/21 03:35 Lymph % (Auto) 41.7 % 02/20/21 03:35 [place] % (Auto) 7.6 % 02/20/21 03:35 Eos % (Auto) 3.0 % 02/20/21 03:35 Baso % (Auto) 1.1 % 02/20/21 03:35 Neut # (Auto) 2.98 10^3/uL (1.8-7.7) 02/20/21 03:35 Lymph # (Auto) 2.7 10^3/uL (0.8-4.8) 02/20/21 03:35 [place] # (Auto) 0.5 10^3/uL (0.2-0.9) 02/20/21 03:35 Eos # (Auto) 0.2 10^3/uL (0.0-0.8) 02/20/21 03:35 Baso # (Auto) 0.1 10^3/uL (0.0-0.1) 02/20/21 03:35 Nucleated RBC % (auto) 0 % 02/20/21 03:35 Nucleated RBCs # 0.0 /100WBC 02/20/21 03:35 APTT 27.4 SECONDS (23.9-36.7) 02/18/21 15:08 Sodium 135 mmol/L (136-145) L 02/20/21 03:35 Potassium 4.6 mmol/L (3.5-5.1) 02/20/21 03:35 Chloride 98 mmol/L (98-107) 02/20/21 03:35 Carbon Dioxide 27 mmol/L (22-29) 02/20/21 03:35 Anion Gap 14.6 (5-19) 02/20/21 03:35 BUN 9 mg/dL (8-23) 02/20/21 03:35 Creatinine 0.9 mg/dL (0.7-1.2) 02/20/21 03:35 GFR Calculation 85.0 mL/min (90-130) L 02/20/21 03:35 Glucose 92 mg/dL (65-115) 02/20/21 03:35 Estimat Average Glucose 111 02/19/21 03:45 Hemoglobin A1c 5.5 % (4.0-6.0) 02/19/21 03:45 Calculated Osmolality 278 mOsm/kg (285-295) L 02/20/21 03:35 Calcium 8.9 mg/dL (8.5-10.5) 02/20/21 03:35 Total Bilirubin 0.4 mg/dL (0.15-1.2) 02/20/21 03:35 AST 19 U/L (0-40) 02/20/21 03:35 ALT 12 U/L (0-41) 02/20/21 03:35 Alkaline Phosphatase 66 IU/L (40-130) 02/20/21 03:35 Troponin T Baseline 12 ng/L (0-15) 02/18/21 15:08 Troponin T 120 Minute 24.09 ng/L (0-15) H 02/18/21 17:06 Delta Troponin T 12.09 ABS# (0-10) H* 02/18/21 17:06 Troponin T Hi Sens 6Hr 51.36 ng/L (0-15) H 02/18/21 21:08 Troponin T Hi Sens 6Hr Delta 39.36 ng/L (0-12) H* 02/18/21 21:08 Total Protein 5.8 g/dL (6.6-8.7) L 02/20/21 03:35 Albumin 3.7 g/dL (3.5-5.2) 02/20/21 03:35 Globulin 2.1 g/dL (1.3-4.6) 02/20/21 03:35 Triglycerides 96 mg/dL (0-150) 02/19/21 03:45 Cholesterol 140 mg/dL (0-200) 02/19/21 03:45 LDL Cholesterol, Calc 76 mg/dL (50-129) 02/19/21 03:45 Total VLDL Cholesterol 19 mg/dL (0-30) 02/19/21 03:45 HDL Cholesterol 45 mg/dL (60-100) L 02/19/21 03:45 Cholesterol/HDL Ratio 3.11 mg/dL (1.0-5.00) 02/19/21 03:45 A&P Assessment and plan (1) NSTEMI (non-ST elevated myocardial infarction): Patient is currently fairly stable. In view of his prolonged episodes of chest pain, elevated troponin T and LV dysfunction by echocardiogram, in order to further evaluate his coronary status, patient requires a cardiac catheterization. This was discussed with the patient in detail. The risk of bleeding, hematoma, vascular injury, myocardial infarction, CVA, renal failure and other concomitant complications were explained in detail. Patient understood this well and consented to proceed. We may go ahead and schedule Status: Acute (2) Atrial fibrillation: ManagedCurrently the patient is in sinus rhythm. The Eliquis is held. Patient is on Lovenox which may be continued. Based on the angiogram findings, further decisions will be made. He may be continued on the Lovenox for the time being. Status: Acute Qualifiers: Atrial fibrillation type: paroxysmal Qualified Code(s): I48.0 - Paroxysmal atrial fibrillation (3) Mixed hyperlipidemia: We will continue on the Lipitor. Patient apparently has no side effects with this medication. Status: Chronic (4) Essential (primary) hypertension: Currently he is normotensive. We will continue on the current medications. Status: Chronic (5) Ischemic cardiomyopathy: Since the left and the ejection fraction is around 40%, we are going to start him on Entresto 26/24 twice daily. May continue on the other medications as it is. Status: Acute Additional A&P Information Based on the results of the cardiac catheterization, further management decisions will be made. Attestations Medical Necessity Statement*: Patient requires continued hospital stay for close monitoring and further management Coding Level of Care Code Acute [employer] Sprink[employer]er for [facility] Fwd History Detailed Exam Detailed Medical Decision Making Moderate Complexity Diagnoses NSTEMI (non-ST elevated myocardial infarction) I21.4 Atrial fibrillation I48.0 Atrial fibrillation type: paroxysmal Mixed hyperlipidemia E78.2 Essential (primary) hypertension I10 Ischemic cardiomyopathy I25.5
--- NOTE | 2021-02-20 14:52 | XACV_ITS ---
Exam Room: [facility] Ht: 163 cm Wt: 66 kg BSA: 1.74 m2 Gender: Male : 1955 Any Known Allergies: No known allergies Exam Priority: Routine Procedure(s): Procedure Description: Diagnostic procedure Procedure Description: PCI procedure Procedure Description: Left Heart Catheterization Procedure Description: Left ventriculography Procedure Description: PTCA Procedure Description: Miscellaneous Procedure Description: ACT Procedure Description: Coronary Angiography Procedure Description: Pressure Wire Virgilio BRADSHAW; Diagnostic Cath Status: Elective Diagnostic Findings * Coronary angiography shows right dominance. * The left main is a medium caliber vessel with a minimal intimal irregularities. No significant stenotic lesions were noted. * The left anterior descending artery is a medium caliber vessel which appears to taper off to his LV apex. The proximal and the distal stented segments were found to be widely patent. Mild diffuse disease was noted in the proximal and the distal vessels. No other significant stenotic lesions were seen. * The left circumflex artery is a medium caliber vessel which was found to be very tortuous proximally. 20 to 30% diffuse irregular narrowing was noted in the proximal segment of the artery. The mid segment was found to have a s standard area which is widely patent. The obtuse marginal artery that is coming off from the stented segment was found to be jailed with a 90% ostial narrowing. The distal circumflex artery was found to have mild diffuse disease with no significant stenotic lesions. The AV groove branch of the circumflex artery appears to be very rudimentary. * The right coronary artery appears to be a medium caliber dominant vessel which was found to be stented in its entirety from the proximal to the distal segment. The proximal and mid segment of the PLV branch also was found to be stented. In the proximal stented segment of the PLV branch, there was a segmental in-stent narrowing of around 50 to 60%. The distal branches of the PLV and the PDA were found to have no significant stenotic lesions. Minimal intimal renal arteries were noted. PCI Status: Elective PCI Indication: NSTE - ACS Interventional Findings * Procedure details: We engaged left main artery with XB 3.5 guide catheter . IV heparin was administered to maintain an ACT above 250 seconds. A 0.014 run-through guidewire was used to cross the stenosis in OM branch was put in distal vessel. 2.5x 12 mm NC balloon was used to dilate the jailed ostium of OM branch. At this time final angiogram was performed that showed excellent stent expansion, MARI-3 flow and no residual stenosis. Guidewire and guide catheter were removed. We then turned our attention to moderate RCA stenosis. RCA was engaged with JR4 guide catheter. After zeroing and equalizing, FFR pressure wire was advanced into distal RCA. Nonischemic FFR value of 1 was obtained. Pressure wire and guide catheter were removed. Angio-Seal was deployed to obtain hemostasis. Patient left the Lump Inspector in a stable condition. Conclusions 1. Mild left ventricular systolic dysfunction. Ejection fraction of 40%. 2. 66-year-old white male with history of coronary disease, status post multiple PCI's and previous myocardial infarction's, presented with episodes of prolonged chest pain. Elevated troponin T and abnormal EKG, suggestive of a non-ST elevation myocardial infarction. In view of the patient's presenting symptoms and the history, in order to further evaluate his coronary status, a cardiac catheterization was recommended. Patient underwent left heart catheterization with left and right coronary angiogram and LV angiogram today. The findings are as follows. 3. Cardiac catheterization revealed patent stented segments in the LAD, circumflex and right coronary artery. That there is a high-grade lesion at the ostium of the first obtuse marginal artery, appears to be a jailed lesion. 50 to 60% in-stent stenosis in the PLV branch of the right coronary artery. Mild diffuse disease in the other vessels. Slightly elevated LVEDP of 19 mmHg. Mildly dilated LV cavity with LV ejection fraction of 35 to 40%. I reviewed and discussed the cardiac resident data with the Dr. Ceron. It was thought to be appropriate to consider PCI of the ostial lesion in the obtuse marginal artery. Also consider FFR of the in-stent stenosis in the PLV branch of the right coronary artery. At this point, Dr. Ceron took over further management of this patient.. 4. Successful revascularization of the jailed OM branch with balloon angioplasty. FFR of the RCA did not demonstrate significant disease. Recommendations * Asprin and plavix. * Transfer back to [facility]. * Aggressive risk factor modification. * Outpatient cardiology follow up in 4 weeks. Interventional RX Recommendation: PCI w/o planned CABG Diagnostic RX Recommendation: PCI w/o planned CABG Anticoagulation: Heparin Ventriculography Ejection Fraction: 40.0 % LV EDP: 19 mmHg Left Ventriculography Findings: * The LV gram was performed the AVERY projection. The LV cavity was found to be mildly dilated. Mild diffuse hypokinesis of left ventricle was noted. The basal and mid inferior wall segment is known to be severely hypokinetic. Overall left ventricular ejection fraction was found to be around 35 to 40%. There is no intracavitary masses. No significant mitral valve prolapse or mitral regurgitation was noted. The LVEDP was 19 mmHg. Pressures Phase:Rest AO : 106 / 81 ( 94 ) @ 2:40:00 PM 139 / 84 ( 105 ) @ 2:49:00 PM 146 / 72 ( 106 ) @ 2:49:00 PM 144 / 85 ( 109 ) @ 2:52:00 PM 136 / 78 ( 100 ) @ 2:54:00 PM 127 / 83 ( 101 ) @ 3:01:00 PM LV : 124 / 1 / 19 @ 2:48:00 PM 137 / 14 / 35 @ 2:49:00 PM 134 / 16 / 32 @ 2:49:00 PM Valves Phase:DefaultPhase AV : 0.0 @ 4:29:28 PM AV Mean Gradient: 0.0 @ 4:29:28 PM Clinical Evaluation EBL: 5mL-10mL Procedural Details Procedure Consent Obtained. Pre-Procedure Time Out. Identified patient by full name and date of as verbalized by the patient/guarantor. Does the consent match the physician's order: Yes. Accurate & Complete Informed Consent: Yes. Inpatient/Outpatient History & Physical on Chart: Yes. If H&P is completed, is and addenduem needed: No; If yes, is the addendum complete: N/A. Visualize and Verify Site with Patient/Guarantor: N/A. Relevant Radiology Images available: Yes. The risks, benefits, and alternatives of sedation and/or procedure were discussed by physician. The patient agrees to continue. Procedure started. [facility] Clinical Fraility Score: 3: Managing Well. Lump Inspector Indications: ACS > 24 hours. Chest Pain Symptom Assessment: Typical Angina Symptoms. Correct patient, site and procedure confirmed by cath team. PERRLA. Strong, equal hand block cuber bilaterally. Lungs clear x 5 lobes. A 18 gauge IV was started in the left forearm using aseptic technique. IV Fluids: 0.9% NaCl at KVO. 0 mL infused prior to track laborer. Pre Procedural Pulses: bilateral radial was 2+. Oxygen started at 2liters/min via nasal canula. right groin was prepped with chloroprep then draped in the usual sterile fashion. right radial was prepped with chloroprep then draped in the usual sterile fashion. Physician notified. Baseline sample Acquired. HR: 54 BPM. Kacy Barlow RN circulating. Physician arrived. Physician scrubbed in. Immediate Pre-Procedure Time Out. Correct Patient: Yes; Correct Procedure: Yes; Correct Site: Yes; Correct Patient Position: Yes; Correct Supplies: Yes; Dried Flammable Prep: Yes; Blood Products Available: N/A;. Lidocaine 1% infiltrated to the right radial. A 20 gauge IV was started in the left wrist using aseptic technique. An attempt to gain access to the right radial artery was unsuccessful. Manual pressure was held as needed to stop the bleeding. Lidocaine 1% infiltrated to the right groin. Arterial access obtained with micropuncture set. A 5 montserratian JL4 catheter in over wire. Multiple views taken of left coronary artery. Catheter removed over the standard wire. A 5 montserratian JR4 catheter in over wire. Multiple views taken of right coronary artery. Dr. Ceron called to review films. Catheter removed over the exchange wire. A 5 montserratian Angled Pig catheter in over wire. Dr. Ceron arrived. Physician review of cine films. EDP Sample taken: LV 124/1,19; HR: 56 BPM; SpO2: 94%. LV gram performed in AVERY @ 10 mL/second for a total of 30 mL. EDP Sample taken: LV 137/14,35; HR: 53 BPM; SpO2: 94%. Pullback taken: LV 134/16,32; AO 139/84(105); Mean: 0mmHg, Peak to Peak: 0mmHg, SEP: 5sec/min; HR: 56 BPM; SpO2: 93%. Catheter removed over the exchange wire. Physician scrubbed out. Side port of sheath attached to Normal Saline flush at KVO to maintain patency. Dr. Ceron scrubbed in. Sheath upsized to a 6 Fr. 6 montserratian XB 3.5 guide catheter was inserted over the wire. Runthrough guidewire was advanced through the guide catheter to lesion in the OM. Inflation number : 1 A MDT NC EUPHORA RX [id number] BALLOON was prepped and advanced across the 1st Ob Darlene , then inflated to 8 YASMIN for 0:24 seconds. Inflation number: 2 The MDT NC EUPHORA RX [id number] BALLOON was reinflated across the 1st Ob Darlene, to 14 YASMIN for 0:24 seconds. Inflation number: 3 The MDT NC EUPHORA RX [id number] BALLOON was reinflated across the 1st Ob Darlene, to 14 YASMIN for 0:22 seconds. Balloon out. Wire out. Guide catheter out. 6 montserratian JR 4 guide catheter was inserted over the wire. ACT drawn. Results 205 seconds. Therapeutic limits - pre-heparin administration 90-150 seconds and monitoring heparin during a vascular procedure >250 seconds. FFR guidewire was advanced through the guide catheter to lesion in the distal RCA. An FFR value of 1.00 was obtained for a lesion located at Dist RCA. Wire out. Guide catheter out. A Right femoral angiogram was performed to determine safe placement of closure device. A Angio-Seal VIP ([facility]) Lot# [id number] was successful obtaining hemostatsis at the Right Femoral artery insertion site. Post Procedure: Pulses reassessed and unchanged. PERRLA. Strong, equal hand block cuber bilaterally. No VTE prophylaxis required. Medication's Wasted: Lidocaine 1% = 5 mL. Medication's Wasted: Nitro = 50 mcg. Medication's Wasted: Verapamil = 5 mg. Medication's Wasted: Heparin = 1000 units. Medication's Wasted: Heparin = 1000 units. Medication's Wasted: Other = Adenosine 70.7 mL. Medication's Wasted: Other = Versed 1 mg. Total IV fluids: 272 mL. Contrast type used: Visipaque 320 mgI/mL, 500 mL bottle. Complications: None. Estimated blood loss: 5mL-10mL. Procedure completed. Patient transferred by bed to 1st floor. Vital chart was stopped. Access Site Site: Right Femoral artery Sheath Size: 5 Fr Hemostasis Method: Angio-Seal VIP ([facility]) Hemostasis Success: Successful Procedure Medications Start: 3:17 PM Stop: 3:17 PM Medication: Versed Amount: 1 mg Route: I.V. Start: 3:17 PM Stop: 3:17 PM Medication: Fentanyl Amount: 50 mcg Route: I.V. Start: 3:24 PM Stop: 3:24 PM Medication: Versed Amount: 1 mg Route: I.V. Start: 3:24 PM Stop: 3:24 PM Medication: Fentanyl Amount: 50 mcg Route: I.V. Start: 3:27 PM Stop: 3:27 PM Medication: 0.9% Saline Amount: 250 ml Route: I.V. bolus Start: 3:32 PM Stop: 3:32 PM Medication: Heparin Amount: 1500 units Route: I.V. Start: 3:51 PM Stop: 3:51 PM Medication: Versed Amount: 1 mg Route: I.V. Start: 3:56 PM Stop: 3:56 PM Medication: Heparin Amount: 7000 units Route: I.V. Start: 4:10 PM Stop: 4:10 PM Medication: Heparin Amount: 2000 units Route: I.V. I, the attending physician, have reviewed and verified all procedure medications. Yes, all medications given per verbal order Report Signatures Interventional Workflow Finalized by Goyo Ceron MD on 03/06/2021 08:01 PM Diagnostic Workflow Finalized by Dr Momo Poole MD [facility] on 02/20/2021 05:58 PM
--- NOTE | 2021-02-20 15:11 | W.PM.OPSUD ---
Surgery/Procedure H&P Update DATE OF PROCEDURE: February 20, 2021 DATE H&P PERFORMED: 02/19/21 H&P UPDATE INFORMATION: I have reviewed H&P completed within last 30 days, I have examined patient prior to procedure and No changes to prior documentation PREOP DIAGNOSIS: NSTEMI PLANNED PROCEDURE: Left heart catheterization with coronary angiogram PATIENT REASSESSED PRIOR TO SEDATION, WITH NO CHANGE NOTED: Yes PHYSICAL EXAM: alert, oriented x 3, clear to auscultation bilaterally and regular rate & rhythm AIRWAY EVAL/ANESTHESIA PLAN: normal airway, see other exam findings, ASA III, Monitored Anesthesia, Local Anesthesia, Risks, benefits & alternatives of sedation and/or procedure discussed and Patient agrees to continue as planned
--- NOTE | 2021-02-20 16:16 | PM.PN ---
Subjective Subjective: Interval history: No events overnight. Patient denies any further chest pain. Plan for cardiac catheterization later in the day today. Patient complained to the nurse of a white spot on the testicles. Vitals/I&O/Wt Last Vital Signs Temp 98.3 F 02/20/21 08:00 Pulse 60 02/20/21 14:00 Resp 21 H 02/20/21 12:00 BP 120/77 02/20/21 12:00 Pulse Ox 97 02/20/21 12:00 02/20/21 02/20/21 02/20/21 06:59 14:59 22:59 Intake Total 240 / 240 Balance 240 / 240 Physical Exam Narrative: EXAM NARRATIVE: General: No acute distress, AO x3 HEENT: PERRLA, pupils bilaterally equal and reactive Chest: Normal vesicular breath sounds, no added sounds, equal good air entry bilaterally CVS: S1-S2 regular, no murmurs, no tachycardia, no gallops, no rubs Abdomen: Soft, nontender, no organomegaly, bowel sounds present Neuro: No focal deficits, no facial deformity, AO x3, power 5/5 in all limbs Data : 02/20/21 03:35 02/20/21 03:35 A&P Assessment and plan (1) NSTEMI (non-ST elevated myocardial infarction): Continue with Plavix, statin. Plan for cardiac catheterization today and possible intervention depending on evaluation. Continue with 1 mg/kg body weight every 12 hour full dose Lovenox. Continue with beta-clover and SEGUNDO inhibitor. Cardiac diet. N.p.o. after midnight. Status: Acute (2) Atrial fibrillation: Rate controlled. Continue with home dose of metoprolol. Eliquis withheld for cardiac cath. Continue with full dose Lovenox. Status: Acute Qualifiers: Atrial fibrillation type: paroxysmal Qualified Code(s): I48.0 - Paroxysmal atrial fibrillation (3) Essential (primary) hypertension: Goal blood pressure less than 140/90 mmHg. Continue with home dose of metoprolol and losartan. Status: Chronic (4) Atherosclerotic heart disease of [place] coronary artery without angina pectoris: Status: Chronic Qualifiers: [place] vs. transplanted heart: [place] heart Qualified Code(s): I25.10 - Atherosclerotic heart disease of [place] coronary artery without angina pectoris (5) Genital warts: Status: Acute Additional A&P Information Check HIV, hepatitis, urine gonorrhea, urine chlamydia. Full code. Full dose Lovenox will help with DVT prophylaxis. Cardiac diet. Protonix for PUD prophylaxis Attestations Medical Necessity Statement*: Requires further hospitalization for further work-up and management of non-ST elevation IA and history of CAD Time Spent in Patient Care: Greater than 35 minutes (>than 50% of time spent in counselling and/or direct pt care on unit). Coding Level of Care Code Acute Hospitality Job Titles for [facility] Fwd Diagnoses NSTEMI (non-ST elevated myocardial infarction) I21.4 Atrial fibrillation I48.0 Atrial fibrillation type: paroxysmal Essential (primary) hypertension I10 Atherosclerotic heart disease of [place] coronary artery without angina pectoris I25.10 [place] vs. transplanted heart: [place] heart Genital warts A63.0
[2021-02-20 17:11] LABS: Hepatitis A Antibody IgM Non-Reactive (Nonreactive); Hepatitis B Surface AB 456.2 (11.5-1000); Hepatitis B Surface Antigen Non-Reactive (Nonreactive)
[2021-02-20] MEDS: sodium chloride 0.9% 1,000 ML 75 ML IV (17:23)
[2021-02-20 17:42] LABS: HIV 1 & 2 Antibody Non-Reactive (Non-Reactiv); HIV 1 & 2 Antigen Non-Reactive (Non-Reactiv)
[2021-02-20 18:08] LABS: Hepatitis B Core AB, Total Reactive (Nonreactive); Hepatitis C Virus Antibody Reactive (Nonreactive)
--- NOTE | 2021-02-20 19:41 | PC.NURSE ---
Pt returned from label tacker at approximately 1640. Pt had drsg to right groin angioseal dry and intact, no swelling hematoma or bleeding noted. Pulses in right foot palpable. Pt had no c/o pain or discomfort at the present time. No Needs voiced. Call light in reach. Will continue to monitor.
[2021-02-20] MEDS: apixaban 5 mg Tablet PO (20:55)
[2021-02-20] MEDS: atorvastatin 40 mg Tablet PO (20:55)
[2021-02-20] MEDS: amlodipine 5 mg Tablet PO (20:55)
[2021-02-21 03:30] VITALS: BP 107/64; PULSE 17; RESP 17; TEMP 36.6; O2SAT 94
[2021-02-21 05:11] LABS: Basophils # 0.1 10^3/uL (0.0-0.1); Basophils % 0.8 %; Eosinophils # 0.1 10^3/uL (0.0-0.8); Eosinophils % 2.2 %; Hematocrit 40.6 % (42.0-52.0); Hemoglobin 14.1 g/dL (11.7-16.6); Lymphocytes # 1.4 10^3/uL (0.8-4.8); Lymphocytes % 22.9 %; Mean Corpuscular HGB Conc 34.7 g/dL (30.0-36.0); Mean Corpuscular Hemoglobin 30.9 pg (28.0-34.0); Mean Platelet Volume 9.4 fL (7.4-10.4); Monocytes # 0.4 10^3/uL (0.2-0.9); Monocytes % 7.3 %; Neutrophils # 3.92 10^3/uL (1.8-7.7); Neutrophils % 66.6 %; Nucleated Red Blood Cells % 0 %; Platelet Count 252 10^3/cmm (130-400); Red Blood Count 4.56 10^6/uL (4.1-5.3); Red Cell Distribution Width 12.2 % (12.1-15.1); White Blood Count 5.9 10^3/uL (4.0-10.0)
[2021-02-21 05:21] VITALS: PULSE 56
[2021-02-21 05:35] LABS: Alanine Aminotransferase 12 U/L (0-41); Albumin Level 3.4 g/dL (3.5-5.2); Alkaline Phosphatase 58 IU/L (40-130); Anion Gap 13.4 (5-19); Aspartate Amino Transferase 20 U/L (0-40); Blood Urea Nitrogen 8 mg/dL (8-23); Calcium 8.3 mg/dL (8.5-10.5); Carbon Dioxide 25 mmol/L (22-29); Chloride 101 mmol/L (98-107); Globulin 2.2 g/dL (1.3-4.6); Glomerular Filtration Rate 113.5 mL/min (90-130); Glucose 88 mg/dL (65-115); Osmolality Calculated 278 mOsm/kg (285-295); Potassium 4.4 mmol/L (3.5-5.1); Sodium 135 mmol/L (136-145); Total Bilirubin 0.4 mg/dL (0.15-1.2); Total Protein 5.6 g/dL (6.6-8.7)
[2021-02-21] MEDS: gabapentin 100 mg Capsule PO (08:03)
[2021-02-21] MEDS: apixaban 5 mg Tablet PO (08:03)
[2021-02-21] MEDS: clopidogrel 75 mg Tablet PO (08:03)
[2021-02-21] MEDS: pantoprazole DR 40 mg Tablet PO (08:03)
[2021-02-21 08:04] VITALS: BP 132/98
[2021-02-21] MEDS: losartan 50 mg Tablet PO (08:04)
[2021-02-21] MEDS: metoprolol tartrate 25 mg Tablet 75 MG PO (08:04)
[2021-02-21 08:44] VITALS: BP 132/98; PULSE 75; RESP 18; TEMP 36.6; O2SAT 100
--- NOTE | 2021-02-21 08:50 | PM.PN ---
Subjective Subjective: Interval history: Patient underwent a cardiac catheterization followed by PCI of the jailed OM lesion. Currently he seems to be doing okay with no recurrence of chest pain or any specific symptoms. Medications: Reviewed: Yes Medication Review Details: Current Medications Acetaminophen (Acetaminophen 325 Mg Tablet) 650 mg PO Q6H PRN PRN Reason: Mild/Mod Pain Or Temp >/= 101 Acetaminophen (Acetaminophen 325 Mg Tablet) 650 mg PO Q6H PRN PRN Reason: MILD PAIN Al Hydrox/Mg Hydrox/Simethicone (Ullz-Yqm-Ztbznqooa-Bryson 30 Ml Udc) 30 ml PO Q15M PRN PRN Reason: INDIGESTION Albuterol Sulfate (Albuterol 8 Gm Mdi) 2 puff INHALATION Q6H PRN PRN Reason: Shortness Of Breath Alprazolam (Alprazolam 0.5 Mg Tablet) 0.25 mg PO TID PRN PRN Reason: ANXIETY Amlodipine Besylate (Amlodipine 5 Mg Tablet) 5 mg PO BEDTIME [facility] Last Admin: 02/20/21 20:55 Dose: 5 mg Documented by: Apixaban (Apixaban 5 Mg Tablet) 5 mg PO BID@0900,2100 [facility] Last Admin: 02/21/21 08:03 Dose: 5 mg Documented by: Atorvastatin Calcium (Atorvastatin 40 Mg Tablet) 40 mg PO BEDTIME [facility] Last Admin: 02/20/21 20:55 Dose: 40 mg Documented by: Atropine Sulfate (Atropine 1 Mg/Ml Sdv 1 Ml) 0.5 mg IVP PRN PRN PRN Reason: Symptomatic bradycardia Clopidogrel Bisulfate (Clopidogrel 75 Mg Tablet) 75 mg PO DAILY [facility] Last Admin: 02/21/21 08:03 Dose: 75 mg Documented by: Cyclobenzaprine HCl (Cyclobenzaprine 10 Mg Tablet) 10 mg PO TID PRN PRN Reason: Muscle Pain Fentanyl (Fentanyl 50 Mcg/Ml Inj 2ml) 50 mcg IVP PRN PRN PRN Reason: Pain Gabapentin (Gabapentin 100 Mg Capsule) 100 mg PO TID [facility] Last Admin: 02/21/21 08:03 Dose: 100 mg Documented by: Dextrose/Sodium Chloride (Dextrose 5%-Sod Chloride 0.45%) 1,000 mls @ 100 mls/hr IV .Q10H [facility] Last Admin: 02/20/21 23:26 Dose: Not Given Documented by: Sodium Chloride (Sodium Chloride 0.9%) 1,000 mls @ 75 mls/hr IV .[id number] [facility] Last Admin: 02/20/21 17:23 Dose: 75 mls/hr Documented by: Losartan Potassium (Losartan 50 Mg Tablet) 50 mg PO DAILY [facility] Last Admin: 02/21/21 08:04 Dose: 50 mg Documented by: Losartan Potassium (Losartan 50 Mg Tablet) 50 mg PO ONCE [facility] Last Admin: 02/19/21 11:59 Dose: 50 mg Documented by: Magnesium Hydroxide (Magnesium Hydroxide 30 Ml Udc) 30 ml PO DAILY PRN PRN Reason: CONSTIPATION Metoprolol Tartrate (Metoprolol Tartrate 25 Mg Tablet) 75 mg PO BID [facility] Last Admin: 02/21/21 08:04 Dose: 75 mg Documented by: Morphine Sulfate (Morphine 4 Mg/Ml Sdv 1 Ml) 2 mg IVP Q4H PRN PRN Reason: SEVERE PAIN Naloxone HCl (Naloxone 0.4 Mg/Ml Sdv) 0.1 mg IVP Q2M PRN PRN Reason: OPIATERV Naloxone HCl (Naloxone 0.4 Mg/Ml Sdv) 0.1 mg IVP Q2M PRN PRN Reason: RESPIRATORY RATE < 8/MIN Nitroglycerin (Nitroglycerin 0.4 Mg Sublingual Tablet) 0.4 mg SUBLINGUAL Q5M PRN PRN Reason: Chest Pain Nitroglycerin (Nitroglycerin 0.4 Mg Sublingual Tablet) 0.4 mg SUBLINGUAL Q5M PRN PRN Reason: CHEST PAIN Ondansetron HCl (Ondansetron 2 Mg/Ml Sdv 2 Ml) 4 mg IVP Q6H PRN PRN Reason: NAUSEA AND VOMITING Pantoprazole Sodium (Pantoprazole Dr 40 Mg Tablet) 40 mg PO DAILY [facility] Last Admin: 02/21/21 08:03 Dose: 40 mg Documented by: Temazepam (Temazepam 15 Mg Capsule) 15 mg PO BEDTIME PRN PRN Reason: INSOMNIA Vitals/I&O/Wt Last Vital Signs Temp 97.9 F 02/21/21 08:44 Pulse 75 02/21/21 08:44 Resp 18 02/21/21 08:44 BP 132/98 02/21/21 08:44 Pulse Ox 100 02/21/21 08:44 02/20/21 02/21/21 02/21/21 22:59 06:59 14:59 Intake Total 400 / 640 100 / 740 Output Total 700 / 700 Balance -300 / -60 100 / 40 Physical Exam Narrative: EXAM NARRATIVE: GENERAL: The patient is alert and oriented times three. Not in any acute distress. HEENT: No significant pallor, icterus or lymphadenopathy. The pupils are reactant to light. Oral cavity: There are no mucous membrane lesions. NECK: Trachea appears to be central. No masses noted. No JVD or thyromegaly appreciated. No carotid bruit. RESPIRATORY: Chest is symmetrical. No intercostals muscle retraction or any accessory muscle activation. There is no chest wall tenderness. Breath sounds are heard bilaterally. No rales or rhonchi heard. No evidence of any consolidation. BREASTS: Deferred. HEART: The heart sounds are normal. No S3 or S4. Short systolic murmur in the mitral area. No diastolic murmurs. No pericardial rub ABDOMEN: No vessel pulsations or distention. No tenderness. No organomegaly appreciated. No abdominal bruit. Bowel sounds are normally heard. : Deferred. RECTAL: Deferred. LYMPHATIC: No lymphadenopathy noted in the neck or groin. EXTREMITIES: The right groin has no hematoma or bleeding MUSCULOSKELETAL: No acute joint deformities or swelling. SKIN: There are no significant scars or skin rash noted. NEUROPSYCHIATRIC: The patient is alert and oriented x3. Appears to be in a good mood. The higher functions -he has difficulty in recalling details of the past events. No tremors or rigidity noted. Const: COMMON NORMALS: alert Resp: COMMON NORMALS: clear to auscultation bilaterally AUSCULTATION: clear to auscultation bilaterally Neuro: SENSORIUM/ORIENTATION: Yes alert Data : 02/21/21 04:21 02/21/21 04:21 A&P Assessment and plan (1) NSTEMI (non-ST elevated myocardial infarction): Status post cardiac catheterization. Patent stents in the LAD, circumflex and right coronary arteries. Moderate in-stent stenosis in the PDA. High-grade ostial stenosis in the obtuse marginal branch, which was intervened by balloon angioplasty. Currently stable. May continue on the current medications Status: Acute (2) Atrial fibrillation: The patient may be restarted on Eliquis tomorrow Status: Acute Qualifiers: Atrial fibrillation type: paroxysmal Qualified Code(s): I48.0 - Paroxysmal atrial fibrillation (3) Mixed hyperlipidemia: We will continue on the Lipitor. Patient apparently has no side effects with this medication. Status: Chronic (4) Essential (primary) hypertension: Currently he is normotensive. We will continue on the current medications. Status: Chronic (5) Ischemic cardiomyopathy: Entresto 1 tablet p.o. twice daily, starting today. Discontinue losartan. Status: Acute Additional A&P Information Discussed with Dr. Donald. Restart Eliquis tomorrow. Continue on the Entresto. [facility]ointment at [facility] to be seen by the nurse practitioner next week. Appointment with Dr. Membreno in 1 month. Attestations Medical Necessity Statement*: Possible discharge home today. Coding Level of Care Code Acute [facility] for [facility] Diagnoses NSTEMI (non-ST elevated myocardial infarction) I21.4 Atrial fibrillation I48.0 Atrial fibrillation type: paroxysmal Mixed hyperlipidemia E78.2 Essential (primary) hypertension I10 Ischemic cardiomyopathy I25.5
--- NOTE | 2021-02-21 10:24 | PM.DCS ---
Discharge Providers Date of Admission: 02/18/21 22:24 Date of Discharge: February 21, 2021 Attending Provider at Admission: Kenneth Mars MD Attending Provider at Discharge: Kenneth Mars MD Consults: Cardiology: Dr. Poole Primary Care Provider: Archana Membreno MD Diagnoses at Discharge Discharge Diagnosis (1) NSTEMI (non-ST elevated myocardial infarction): Status: Acute (2) Atrial fibrillation: Status: Acute Qualifiers: Atrial fibrillation type: paroxysmal Qualified Code(s): I48.0 - Paroxysmal atrial fibrillation (3) Mixed hyperlipidemia: Status: Chronic (4) Essential (primary) hypertension: Status: Chronic (5) Ischemic cardiomyopathy: Status: Acute (6) Hepatitis C: Status: Acute Reason for Visit Reason for Visit: CP, Difficulty Breathing Hospital Course Hospital Course Shayan Flanagan is a 66 year old male with a history of coronary disease, status post multiple PCI's, essential benign hypertension, dyslipidemia, atrial fibrillation and ischemic cardiomyopathy is presenting with complaints of chest pain. He is known to have coronary disease and had multiple PCI's in the past. The first myocardial infarction was in 2012. At that time, he had a very complicated course. Accordingto the patient, he was defibrillated 10 times during that hospital admission. He underwent a cardiac catheterization followed by PCI of the left artery descending artery and circumflex artery in [facility]. Details are not available. He had a second myocardial infarction in 2018. At that time, he underwent PCI of the right coronary artery. He had a total of 3 stents in 2012 and 2 stents in the RCA in 2018. Apparently he has been doing okay since the last coronary intervention. However he has been having some generalized fatigue and weakness causing him to limit his activities. He also has some amount of shortness of breath with activities. No orthopnea PND. He came to the ER on February 18. On the Sunday prior to coming to the hospital he had pressure-like squeezing sensation in the chest associated with some shortness of breath which lasted for couple of hours with mild intensity. On the day of admission he had another episode of prolonged chest tightness or shortness of breath with intensity 8/10. He also had choking sensation associated with dizziness and feeling extremely weak. Patient was brought to the hospital for further evaluation of chest pressure in setting of CAD. Cardiology was consulted. Patient did not have any further chest discomfort during hospitalization. Echocardiogram was done which showed EF of 40% with diffuse hypokinesia. Given history of CAD and significant chest discomfort symptoms patient underwent cardiac catheterization on February 20 and underwent balloon angioplasty of OM lesion. At this time I do not have complete results of angiography with me. Patient tolerated the procedure well. His cardiac medications were adjusted. Patient's hospitalization was unremarkable. He complained of genital warts for which STI panel has been sent out. Patient is positive for hepatitis C and is been advised to follow-up with Dr. Sylvester for further evaluation and management of hepatitis C. He has been discharged in hemodynamically stable condition advised to follow-up with Colleen Saravia in [address] Membreno in 1 month. Physical Exam Narrative: EXAM NARRATIVE: General: No acute distress, AO x3 HEENT: PERRLA, pupils bilaterally equal and reactive Chest: Normal vesicular breath sounds, no added sounds, equal good air entry bilaterally CVS: S1-S2 regular, no murmurs, no tachycardia, no gallops, no rubs Abdomen: Soft, nontender, no organomegaly, bowel sounds present Neuro: No focal deficits, no facial deformity, AO x3, power 5/5 in all limbs Discharge Data Data Completed and Pending: Completed Studies During Hospitalization Category Date Time Status CT head wo con* [id number] Urgent Cat Scan 02/18/21 14:53 Completed XR chest 1V valeri ble [id number] Stat Exams 02/18/21 14:52 Completed CV. echo complete * [id number] Routine Ultrasound 02/19/21 07:11 Completed Pending at discharge Category Date Time Status [employer] request for service Routin e Exams 02/20/21 14:52 Taken Chlamydia / Gonor flaquito Panel Stat Lab 02/21/21 02:55 Received Labs from last 24 hours 02/21/21 02/21/21 02/20/21 04:21 04:21 03:35 WBC 5.9 RBC 4.56 Hgb 14.1 Hct 40.6 L MCV 89.0 MCH 30.9 MCHC 34.7 RDW 12.2 Plt Count 252 MPV 9.4 Neut % (Auto) 66.6 Lymph % (Auto) 22.9 [place] % (Auto) 7.3 Eos % (Auto) 2.2 Baso % (Auto) 0.8 Neut # (Auto) 3.92 Lymph # (Auto) 1.4 [place] # (Auto) 0.4 Eos # (Auto) 0.1 Baso # (Auto) 0.1 Nucleated RBC % (a uto) 0 Nucleated RBCs # 0.0 Sodium 135 L Potassium 4.4 Chloride 101 Carbon Dioxide 25 Anion Gap 13.4 BUN 8 Creatinine 0.7 GFR Calculation 113.5 Glucose 88 Calculated Osmolal ity 278 L Calcium 8.3 L Total Bilirubin 0.4 AST 20 ALT 12 Alkaline Phosphata se 58 Total Protein 5.6 L Albumin 3.4 L Globulin 2.2 Hepatitis A IgM Ab Hep Bs Antigen Hep Bs Antibody Hep B Core Total A b Hepatitis C Antibo dy HIV 1&2 Ab & HIV 1 Ag Non-reactive HIV 1&2 Antibody Non-reactive 02/20/21 03:35 WBC RBC Hgb Hct MCV MCH MCHC RDW Plt Count MPV Neut % (Auto) Lymph % (Auto) [place] % (Auto) Eos % (Auto) Baso % (Auto) Neut # (Auto) Lymph # (Auto) [place] # (Auto) Eos # (Auto) Baso # (Auto) Nucleated RBC % (a uto) Nucleated RBCs # Sodium Potassium Chloride Carbon Dioxide Anion Gap BUN Creatinine GFR Calculation Glucose Calculated Osmolal ity Calcium Total Bilirubin AST ALT Alkaline Phosphata se Total Protein Albumin Globulin Hepatitis A IgM Ab Non-reactive Hep Bs Antigen Non-reactive Hep Bs Antibody 456.2 Hep B Core Total A b Reactive H Hepatitis C Antibo dy Reactive H HIV 1&2 Ab & HIV 1 Ag HIV 1&2 Antibody Addt'l Data from Hospital Stay: Laboratory Results WBC 5.9 10^3/uL (4.0- 10.0) 02/21/21 04:21 RBC 4.56 10^6/uL (4.1 -5.3) 02/21/21 04:21 Hgb 14.1 g/dL (11.7-1 6.6) 02/21/21 04:21 Hct 40.6 % (42.0-52.0 ) L 02/21/21 04:21 MCV 89.0 fl (80-94) 02/21/21 04:21 MCH 30.9 pg (28.0-34. 0) 02/21/21 04:21 MCHC 34.7 g/dL (30.0-3 6.0) 02/21/21 04:21 RDW 12.2 % (12.1-15.1 ) 02/21/21 04:21 Plt Count 252 10^3/cmm (130 -400) 02/21/21 04:21 MPV 9.4 fL (7.4-10.4) 02/21/21 04:21 Neut % (Auto) 66.6 % 02/21/21 04:21 Lymph % (Auto) 22.9 % 02/21/21 04:21 [place] % (Auto) 7.3 % 02/21/21 04:21 Eos % (Auto) 2.2 % 02/21/21 04:21 Baso % (Auto) 0.8 % 02/21/21 04:21 Neut # (Auto) 3.92 10^3/uL (1.8 -7.7) 02/21/21 04:21 Lymph # (Auto) 1.4 10^3/uL (0.8- 4.8) 02/21/21 04:21 [place] # (Auto) 0.4 10^3/uL (0.2- 0.9) 02/21/21 04:21 Eos # (Auto) 0.1 10^3/uL (0.0- 0.8) 02/21/21 04:21 Baso # (Auto) 0.1 10^3/uL (0.0- 0.1) 02/21/21 04:21 Nucleated RBC % (a uto) 0 % 02/21/21 04:21 Nucleated RBCs # 0.0 /100WBC 02/21/21 04:21 APTT 27.4 SECONDS (23. 9-36.7) 02/18/21 15:08 Sodium 135 mmol/L (136-1 45) L 02/21/21 04:21 Potassium 4.4 mmol/L (3.5-5 .1) 02/21/21 04:21 Chloride 101 mmol/L (98-10 7) 02/21/21 04:21 Carbon Dioxide 25 mmol/L (22-29) 02/21/21 04:21 Anion Gap 13.4 (5-19) 02/21/21 04:21 BUN 8 mg/dL (8-23) 02/21/21 04:21 Creatinine 0.7 mg/dL (0.7-1. 2) 02/21/21 04:21 GFR Calculation 113.5 mL/min (90- 130) 02/21/21 04:21 Glucose 88 mg/dL (65-115) 02/21/21 04:21 Estimat Average Gl ucose 111 02/19/21 03:45 Hemoglobin A1c 5.5 % (4.0-6.0) 02/19/21 03:45 Calculated Osmolal ity 278 mOsm/kg (285- 295) L 02/21/21 04:21 Calcium 8.3 mg/dL (8.5-10 .5) L 02/21/21 04:21 Total Bilirubin 0.4 mg/dL (0.15-1 .2) 02/21/21 04:21 AST 20 U/L (0-40) 02/21/21 04:21 ALT 12 U/L (0-41) 02/21/21 04:21 Alkaline Phosphata se 58 IU/L (40-130) 02/21/21 04:21 Troponin T Baselin e 12 ng/L (0-15) 02/18/21 15:08 Troponin T 120 Min michelle 24.09 ng/L (0-15) H 02/18/21 17:06 Delta Troponin T 12.09 ABS# (0-10) H* 02/18/21 17:06 Troponin T Hi Sens 6Hr 51.36 ng/L (0-15) H 02/18/21 21:08 Troponin T Hi Sens 6Hr Delta 39.36 ng/L (0-12) H* 02/18/21 21:08 Total Protein 5.6 g/dL (6.6-8.7 ) L 02/21/21 04:21 Albumin 3.4 g/dL (3.5-5.2 ) L 02/21/21 04:21 Globulin 2.2 g/dL (1.3-4.6 ) 02/21/21 04:21 Triglycerides 96 mg/dL (0-150) 02/19/21 03:45 Cholesterol 140 mg/dL (0-200) 02/19/21 03:45 LDL Cholesterol, C alc 76 mg/dL (50-129) 02/19/21 03:45 Total VLDL Cholest jia 19 mg/dL (0-30) 02/19/21 03:45 HDL Cholesterol 45 mg/dL (60-100) L 02/19/21 03:45 Cholesterol/HDL Ra tari 3.11 mg/dL (1.0-5 .00) 02/19/21 03:45 Hepatitis A IgM Ab Non-reactive (No nreactive) 02/20/21 03:35 Hep Bs Antigen Non-reactive (No nreactive) 02/20/21 03:35 Hep Bs Antibody 456.2 (11.5-1000 ) 02/20/21 03:35 Hep B Core Total A b Reactive (Nonrea ctive) H 02/20/21 03:35 Hepatitis C Antibo dy Reactive (Nonrea ctive) H 02/20/21 03:35 HIV 1&2 Ab & HIV 1 Ag Non-reactive (No n-Reactiv) 02/20/21 03:35 HIV 1&2 Antibody Non-reactive (No n-Reactiv) 02/20/21 03:35 Impressions Chest X-Ray 02/18/21 14:52 Impression: Atherosclerosis and hyperinflation. Head CT 02/18/21 14:53 IMPRESSION: No acute intracranial abnormality. Chronic microvascular ischemic changes. Radiation Dose CTDIVOL = (mGy): DLP = 832.31 (mGy-cm) Echocardiogram: CONCLUSIONS Diffuse hypokinesia of the left ventricle. Mildly dilated LV cavity. Dyskinetic basal inferior wall segment. Overall LV ejection fraction is around 40%. Thickened aortic and mitral valve the features of aortic valve sclerosis. There is no pericardial effusion. There are no intracardiac masses. Compared to the study from 11/03/2019, there may not be a significant change Dr Momo Poole MD [facility] (Electronically Signed) Final Date: 19 February 2021 14:08 S Vitals: Last Vital Signs Temp 97.9 F 02/21/21 08:44 Pulse 75 02/21/21 08:44 Resp 18 02/21/21 08:44 BP 132/98 02/21/21 08:44 Pulse Ox 100 02/21/21 08:44 Discharge Plan Discharge Patient Disposition: Home Condition: Stable Prescriptions: New Entresto 24-26 mg Tablet 1 ea PO BID 30 Days Qty: 60 RF: 0 Continued nitroglycerin 0.4 mg tablet, sublingual 0.4 mg SUBLINGUAL Q5M PRN (Reason: Chest Pain) RF: 0 cholecalciferol (vitamin D3) 1,000 unit capsule 2,000 unit PO DAILY RF: 0 cetirizine 10 mg capsule 10 mg PO PRN RF: 0 clopidogrel 75 mg tablet 75 mg PO DAILY RF: 0 aspirin [Adult Aspirin Regimen] 81 mg tablet,delayed release (DR/EC) 81 mg PO DAILY Qty: 90 RF: 3 metoprolol tartrate 75 mg tablet 75 mg PO BID Qty: 180 RF: 3 Eliquis 5 mg tablet 5 mg PO BID Qty: 180 RF: 3 cyclobenzaprine 10 mg Tablet 10 mg PO TID PRN (Reason: Muscle Pain) RF: 0 atorvastatin 80 mg Tablet 40 mg PO BEDTIME RF: 0 gabapentin 100 mg Capsule 100 mg PO TID RF: 0 albuterol sulfate 90 mcg/actuation Hfa Aerosol Inhaler 2 puff INHALATION Q6H PRN (Reason: Shortness Of Breath) RF: 0 Flonase 50 mcg/actuation [place],Suspension 1 spray INTRANASAL DAILY PRN (Reason: Nasal Congestion) RF: 0 naproxen 500 mg Tablet 500 mg PO BID PRN (Reason: Pain) RF: 0 amlodipine 5 mg Tablet 5 mg PO BEDTIME RF: 0 garlic Tablet 2,000 mg PO DAILY RF: 0 Discontinued losartan 50 mg tablet 50 mg PO DAILY Qty: 90 RF: 3 Discharge Orders: Discharge Order (Routine); Ordered 02/21/21 Ordered By: Kenneth Mars Referrals: Niles Sylvester MD [Physician] - (New diagnosis of hepatitis C) Archana Membreno MD [Primary Care Provider] - (Please follow-up with Dr. Membreno on with check-in at 12:45P.M. If you have any questions or need to reschedule. Please call ) Colleen Saravia FNP [Nurse Practitioner] - (Please follow-up with Colleen Saravia on Feb.28 at 10:15A.M. If you have any questions or need to reschedule. Please call ) Discharge Diet: Cardiac Discharge Activity: Resume usual activity Patient Instructions: Sacubitril/Valsartan (By mouth) (Entresto), Coronary Angioplasty (DC), Chest Pain Stoplight, Opioid Safety, Post Angiogram Home Care Instructions Activity Restrictions/Additional Instructions: Please follow-up with the doctors as described in detail. Losartan has been changed to Entresto. Please follow-up with Dr. Niles Sylvester for treatment of hepatitis C. Please take your medications as prescribed. Take aspirin, Plavix, statin once daily, Eliquis 5 mg twice daily, metoprolol 75 mg twice daily, Entresto twice daily. Please check your blood pressure twice daily at home and maintain a blood pressure diary and follow-up with a primary care provider for further adjustment of antihypertensives. Discharge Attestations Time Spent in Discharge Care*: greater than 30 min Specific Discharge Activities: educating patient, discussing with pcp/other providers, discussing with case management coordinator/social workers/dc planners, documenting/other paperwork and evaluating patient/reviewing data Status at Discharge: Cognitive status at discharge: cognitively intact, Behavioral status at discharge: cooperative, Functional status at discharge: independent ambulation Overall status at discharge: patient is back to baseline Quality Metrics Clinical Quality Measures During this hospital stay, did patient experience: None Coding Level of Care Code Acute [facility] note Diagnoses NSTEMI (non-ST elevated myocardial infarction) I21.4 Atrial fibrillation I48.0 Atrial fibrillation type: paroxysmal Mixed hyperlipidemia E78.2 Essential (primary) hypertension I10 Ischemic cardiomyopathy I25.5 Hepatitis C B19.20
[2021-02-21] MEDS: sacubitril/valsartan 24-26 mg Tablet 1 EACH PO (11:26)
[2021-02-21 12:06] VITALS: BP 132/98; PULSE 75; RESP 18; TEMP 36.6; O2SAT 100
--- NOTE | 2021-02-21 17:59 | PC.RESP ---
Smoking Cessation information sent to patient.
== END 2021-02-21 12:00 | disposition home or self-care (01) | DRG 251 ==
LOC: ER 15:52 → CSU 21:14
PROVIDERS: Internal Medicine; Internal Medicine Cardiovascular Disease; Admitting Provider Student in an Organized Health Care Education/Training Program; Emergency Provider Family Medicine; PCP Internal Medicine Cardiovascular Disease; Visit Provider Student in an Organized Health Care Education/Training Program
PROC: 02703ZZ Dilation of Coronary Artery, One Artery, Percutaneous Approach (ICD-10-PCS; principal; 2021-02-20 15:00)
DX: I21.4 Non-ST elevation (NSTEMI) myocardial infarction (principal); T82.855A Stenosis of coronary artery stent, initial encounter; I50.20 Unspecified systolic (congestive) heart failure; Y71.1 Therapeutic (nonsurgical) and rehabilitative cardiovascular devices associated with adverse incidents; I25.110 Atherosclerotic heart disease of native coronary artery with unstable angina pectoris; Z95.5 Presence of coronary angioplasty implant and graft; I25.2 Old myocardial infarction; I11.0 Hypertensive heart disease with heart failure; E78.2 Mixed hyperlipidemia; B19.20 Unspecified viral hepatitis C without hepatic coma; F17.210 Nicotine dependence, cigarettes, uncomplicated; I48.0 Paroxysmal atrial fibrillation; I25.5 Ischemic cardiomyopathy; A63.0 Anogenital (venereal) warts; Z79.02 Long term (current) use of antithrombotics/antiplatelets; Z79.82 Long term (current) use of aspirin
CPT/HCPCS: 36415; 70450; 71045; 80048; 80053; 80061; 83036; 84484; 85025; 85347; 85730; 86705; 86706; 86709; 86803; 87340; 87491; 87591; 87806; 92920; 93005; 93306; 93452; 93571; 96372; 99285; C1725; C1760; C1769; C1887; C1894; J0153; J1644; J1650; J2250; J3010; J3490; J7030; J7799; Q9967

== ENCOUNTER → 2021-09-20 14:33 | Outpatient (BNVA) | payer OTHER, SELFPAY | PROVIDERS: PCP Nurse Practitioner Family; Visit Provider Internal Medicine Cardiovascular Disease | DX: I25.10 Atherosclerotic heart disease of native coronary artery without angina pectoris (principal); I25.5 Ischemic cardiomyopathy; E78.2 Mixed hyperlipidemia; I10 Essential (primary) hypertension; F17.210 Nicotine dependence, cigarettes, uncomplicated; I25.2 Old myocardial infarction | CPT/HCPCS: 99214 ==

== ENCOUNTER → 2021-10-10 13:14 | Outpatient (BNVA) | payer OTHER, SELFPAY | PROVIDERS: PCP Emergency Medicine Emergency Medical Services; Visit Provider Nurse Practitioner Family | DX: I25.5 Ischemic cardiomyopathy (principal); I10 Essential (primary) hypertension; F17.210 Nicotine dependence, cigarettes, uncomplicated | CPT/HCPCS: 99214 ==

== ENCOUNTER → 2021-12-27 13:55 | Outpatient (BNVA) | payer OTHER, SELFPAY | PROVIDERS: PCP Emergency Medicine Emergency Medical Services; Visit Provider Internal Medicine Cardiovascular Disease | DX: I25.5 Ischemic cardiomyopathy (principal); I10 Essential (primary) hypertension; I25.10 Atherosclerotic heart disease of native coronary artery without angina pectoris; E78.2 Mixed hyperlipidemia; F17.210 Nicotine dependence, cigarettes, uncomplicated; I25.2 Old myocardial infarction | CPT/HCPCS: 36415; 80048; 83880; 99214 ==

== ENCOUNTER 2022-01-26 11:40 | Outpatient (CLI) | payer OTHER, SELFPAY ==
[2022-01-26 13:31] LABS: Anion Gap 14.5 (5-19); Blood Urea Nitrogen 9 mg/dL (8-23); Calcium 9.8 mg/dL (8.5-10.5); Carbon Dioxide 27 mmol/L (22-29); Chloride 95 mmol/L (98-107); Glomerular Filtration Rate 84.7 mL/min (90-130); Glucose 86 mg/dL (65-115); NT Pro B Type Natriuretic Pept 226 pg/mL (0-125); Osmolality Calculated 272 mOsm/kg (285-295); Potassium 4.5 mmol/L (3.5-5.1); Sodium 132 mmol/L (136-145)
== END 2022-01-26 11:41 | disposition home or self-care (01) ==
LOC: LAB 11:45
PROVIDERS: PCP Emergency Medicine Emergency Medical Services; Visit Provider Internal Medicine Cardiovascular Disease
DX: E78.2 Mixed hyperlipidemia (principal); I48.0 Paroxysmal atrial fibrillation; I25.10 Atherosclerotic heart disease of native coronary artery without angina pectoris; I25.5 Ischemic cardiomyopathy
CPT/HCPCS: 36415; 80048; 83880

== ENCOUNTER 2022-03-08 12:50 | Outpatient (CLI) | payer OTHER, SELFPAY ==
--- NOTE | 2022-03-08 13:30 | USCV_ITS ---
Panchito Shayan Age: 67 Gender: M : 1955 Exam Date: 03/08/2022 13:00 Ordering Phys: Momo Poole MD ([email or web address]) Technologist: PATRICIA [place]am Location[place] [facility] [place]ication: CARDIOMYOPATHY BP: 120 / 83 HR: 76 Rhythm: Sinus Technical Quality: Adequate MEASUREMENTS (Male / Female) Normal Values 2D ECHO LVOT Diameter 2.0 cm LV Ejection Fraction MOD 2C 47.8 % LV Ejection Fraction 2C AL 49.0 % LA Diameter 2.6 cm LA Width 2.4 cm LA Height 4.6 cm RA Width 2.7 cm RA Height 4.6 cm Aorta at Sinotubular Diameter 2.8 cm IVC Diameter 1.0 cm M-MODE Aortic Annulus Diameter 3.3 cm LA Ao Ratio MM 0.7 MV E Point Septal Separation 0.7 cm DOPPLER AV Peak Velocity 129.7 cm/s LVOT Peak Velocity 114.0 cm/s AV Area Cont Eq vti 2.6 cm squared AV Area Cont Eq pk 2.7 cm squared MV Peak Velocity 90.0 cm/s MV Area PHT 3.3 cm squared Mitral E to A Ratio 0.9 MV E' Velocity 38.5 cm/s Mitral E to MV E' Ratio 7.8 Mitral E to LV E' Lateral Ratio 9.0 Mitral E to LV E' Septal Ratio 6.9 TR Peak Velocity 127.0 cm/s TR Peak Gradient 6.5 mmHg TR Mean Velocity 96.0 cm/s TR Mean Gradient 4.0 mmHg TR Velocity Time Integral 26.0 cm TV Peak E Velocity 40.0 cm/s Right Atrial Pressure 3.0 mmHg Pulmonary Artery Systolic Pressu 9.5 mmHg PV Peak Velocity 75.0 cm/s RV Acceleration Time 0.1 s RV Ejection Time 0.3 s RV AcT/ET 0.4 FINDINGS Left Ventricle Diffuse hypokinesia left-ventricular with an ejection fraction of 48%. Mildly dilated LV cavity.Grade I/IV diastolic dysfunction (abnormal relaxation filling pattern), normal to mildly elevated filling pressures. Right Ventricle The right ventricle is normal in size and function. Right Atrium The right atrium is normal in size. Left Atrium The left atrium is normal in size. Mitral Valve No gross abnormalities noted Aortic Valve No gross abnormalities noted Tricuspid Valve No gross abnormalities noted Pulmonic Valve No gross abnormalities noted Pericardium Normal pericardium without effusion. Aorta Normal ascending aorta dimension. IVC The inferior vena cava appears normal. CONCLUSIONS Diffuse hypokinesia left-ventricular with an ejection fraction of 48%. Mildly dilated LV cavity.Grade I/IV diastolic dysfunction (abnormal relaxation filling pattern), normal to mildly elevated filling pressures. No significant stenotic or regurgitant lesions. No intracardiac masses. No pericardial effusion. Compared to the study from 02/19/2021, there is some improvement in the LV ejection fraction from 40% to 48%. Dr Momo Poole MD [facility] (Electronically Signed) Final Date: 08 March 2022 18:55 S
== END 2022-03-08 12:51 | disposition home or self-care (01) ==
LOC: RAD 12:50
PROVIDERS: PCP Emergency Medicine Emergency Medical Services; Visit Provider Internal Medicine Cardiovascular Disease
DX: R06.09 Other forms of dyspnea (principal); I25.5 Ischemic cardiomyopathy
CPT/HCPCS: 93306

== ENCOUNTER → 2022-05-02 15:28 | Outpatient (BNVA) | payer OTHER, SELFPAY | PROVIDERS: PCP Emergency Medicine Emergency Medical Services; Visit Provider Internal Medicine Cardiovascular Disease | DX: I48.0 Paroxysmal atrial fibrillation (principal); Z79.01 Long term (current) use of anticoagulants; I25.10 Atherosclerotic heart disease of native coronary artery without angina pectoris; E78.2 Mixed hyperlipidemia; I25.5 Ischemic cardiomyopathy; I10 Essential (primary) hypertension; F17.210 Nicotine dependence, cigarettes, uncomplicated; I25.2 Old myocardial infarction | CPT/HCPCS: 99214 ==

== ENCOUNTER 2022-06-01 09:14 | Outpatient (CLI) | payer OTHER, SELFPAY ==
[2022-06-01 10:03] LABS: Chol HDL Ratio 3.12 mg/dL (1.0-5.00); Cholesterol 134 mg/dL (0-200); HDL Cholesterol 43 mg/dL (60-100); LDL Cholesterol Calculated 60 mg/dL (50-129); Triglycerides 157 mg/dL (0-150)
== END 2022-06-01 09:15 | disposition home or self-care (01) ==
LOC: LAB 09:19
PROVIDERS: PCP Emergency Medicine Emergency Medical Services; Visit Provider Internal Medicine Cardiovascular Disease
DX: E78.5 Hyperlipidemia, unspecified (principal)
CPT/HCPCS: 36415; 80061

== ENCOUNTER 2022-07-13 12:17 | Outpatient (CLI) | payer OTHER, SELFPAY ==
--- NOTE | 2022-07-13 12:37 | CT_ITS ---
WS: [id number] CT ABDOMEN AND PELVIS WITH CONTRAST HISTORY: ABDOMINAL PAIN TECHNIQUE: Imaging performed of the abdomen and pelvis with IV contrast. Single phase imaging of the abdomen. Coronal and sagittal reformats are submitted. All CT scans at [facility] use at [address] one of these dose optimization techniques: automated exposure control; mA and/or kV adjustment per patient size (includes targeted exams where dose is matched to clinical indication); or iterative re construction. IV CONTRAST: Omnipaque 350; 100 mL IV. Oral contrast: Yes. DLP: 524.63 mGy.cm COMPARISON: None available. Lower thorax: Benign granuloma RIGHT lung base. Heart is normal size. No hiatal hernia. Liver/biliary system: Normal size liver with marked hepatic steatosis. No duct dilatation. Gallbladder: Normal. No gallstones or wall thickening. No pericholecystic fluid. Pancreas: Normal size pancreas and pancreatic duct. No adjacent inflammation. Spleen: Normal size spleen with granulomata. Adrenal glands: Normal. Right kidney: Normal. Left kidney: Normal. Aorta: Atherosclerotic calcifications. Mild atherosclerosis continues into the celiac axis and SMA. Lymphadenopathy: None. Free fluid: None. GI tract: Normal stomach. No small bowel obstruction. Normal appendix. Numerous diverticula in the de scending and sigmoid colon. Mild circumferential wall thickening of the sigmoid with numerous diverti cula. No acute diverticulitis or obstruction at this time. Abdominal wall: Fat containing umbilical hernia. Pelvis: No free fluid or adenopathy within the pelvis. Bones: Asymmetric disc space narrowing at L2-3. CT/CT abdomen pelvis w con* [id number] IMPRESSION: 1. Marked hepatic steatosis with no hepatic enlargement. 2. No ascites. 3. Sigmoid diverticulosis without acute diverticulitis.
[2022-07-13] MEDS: iohexol 350 mg/mL 500 mL Btl (per mL) PO (12:41)
[2022-07-13] MEDS: iohexol 350 mg/mL 500 mL Btl (per mL) IV (12:41)
== END 2022-07-13 12:18 | disposition home or self-care (01) ==
PROVIDERS: PCP Emergency Medicine Emergency Medical Services; Visit Provider Emergency Medicine Emergency Medical Services
DX: R10.9 Unspecified abdominal pain (principal); K76.0 Fatty (change of) liver, not elsewhere classified; K57.30 Diverticulosis of large intestine without perforation or abscess without bleeding
CPT/HCPCS: 74177; Q9967

== ENCOUNTER 2022-07-27 11:21 | Outpatient (CLI) | payer OTHER, SELFPAY ==
--- NOTE | 2022-07-27 11:35 | US_ITS ---
WS: [id number] RIGHT UPPER QUADRANT ULTRASOUND HISTORY: ELEVATED LIPASE W/ABDOMINAL PAIN OCCASIONAL N/V COMPARISON: CT 07/13/2022 Liver: 17.5 cm in length. Moderately enlarged liver with diffuse hepatic steatosis. No mass or bile d uct dilatation. Surface of the liver is very slightly nodular suggesting cirrhosis. Portal Vein: Normal hepatopetal flow with monophasic waveform. Gallbladder: Normally distended gallbladder with no stones or wall thickening. CBD: 0.3 cm Pancreas: Normal size and echogenicity. Right kidney: 11.2 cm in length. Normal size and echogenicity. No hydronephrosis or mass. Aorta and IVC: Unremarkable abdominal aorta and IVC. No ascites. US/US abdomen limited [id number] IMPRESSION: 1. Normal gallbladder. 2. Moderate hepatomegaly and hepatic steatosis.
== END 2022-07-27 11:22 | disposition home or self-care (01) ==
LOC: RAD 11:24
PROVIDERS: PCP Emergency Medicine Emergency Medical Services; Visit Provider Emergency Medicine Emergency Medical Services
DX: R79.89 Other specified abnormal findings of blood chemistry (principal); R10.9 Unspecified abdominal pain; R11.2 Nausea with vomiting, unspecified; R16.0 Hepatomegaly, not elsewhere classified; K76.0 Fatty (change of) liver, not elsewhere classified
CPT/HCPCS: 76705

== ENCOUNTER → 2022-10-18 13:08 | Outpatient (BNVA) | payer OTHER, SELFPAY | PROVIDERS: PCP Emergency Medicine Emergency Medical Services; Visit Provider Nurse Practitioner Family | DX: I48.0 Paroxysmal atrial fibrillation (principal); I25.5 Ischemic cardiomyopathy; I10 Essential (primary) hypertension; I25.10 Atherosclerotic heart disease of native coronary artery without angina pectoris; F17.210 Nicotine dependence, cigarettes, uncomplicated; Z79.01 Long term (current) use of anticoagulants | CPT/HCPCS: 99214 ==

== ENCOUNTER 2023-09-04 13:14 | Outpatient (CLI) | payer OTHER, SELFPAY ==
--- NOTE | 2023-09-04 13:17 | USCV_ITS ---
Shayan Flanagan Age: 68 Gender: M : 1955 Exam Date: 09/04/2023 13:31 Ordering Phys: Adolfo Mendoza DO Technologist: Juan Burger [place]am Location[place] [facility] [place]: cca disease Risk Factors: Previous Vascular Surgery: Right Brachial BP: / Left Brachial BP: / Right Left Velocity (cm/s) Spectral Plaque Velocity (cm/s) Spectral Plaque Syst/Diast Broadening Syst/Diast Broadening 65.90/ 20.60 Prox CCA 67.90 / 17.90 60.80/ 15.40 Mid CCA 69.20 / 21.70 51.00/ 14.00 Hetro Distal CCA 69.20 / 20.40 Hetro 65.90/ 15.40 Hetro Prox ICA 74.00 / 28.00 Hetro 64.60/ 16.70 Hetro Mid ICA 44.80 / 16.60 Hetro 78.30/ 25.60 Distal ICA 53.00 / 14.00 115.20 ECA 78.20 1.20 ICA/CCA 1.10 Antegrade Vertebral Antegrade 32.00/ 8.90 cm/s 62.50/ 20.30 cm/s Tri Subclavian Tri 71.00 97.00 FINDINGS Comparison:. 11/03/19 No significant elevation of systolic or diastolic velocities. Waveforms are mildly turbulent. Diffuse bilateral scattered calcified plaque and intimal thickening throughout the common carotid arteries and extending through the bifurcation. CONCLUSIONS Bilateral ICA stenosis less than 50%. Mild carotid atherosclerosis. Dr. Cecilia Mckoy DO (Electronically Signed) Final Date: 05 Sep 2023 07:29 S
== END 2023-09-04 13:15 | disposition home or self-care (01) ==
LOC: RAD 13:14
PROVIDERS: PCP Emergency Medicine Emergency Medical Services; Visit Provider Emergency Medicine Emergency Medical Services
DX: Z86.79 Personal history of other diseases of the circulatory system (principal); I65.23 Occlusion and stenosis of bilateral carotid arteries
CPT/HCPCS: 93880

== ENCOUNTER → 2023-10-03 12:58 | Outpatient (BNVA) | payer OTHER, SELFPAY | PROVIDERS: PCP Emergency Medicine Emergency Medical Services; Visit Provider Nurse Practitioner Family | DX: D48.5 Neoplasm of uncertain behavior of skin (principal); B07.8 Other viral warts; D36.11 Benign neoplasm of peripheral nerves and autonomic nervous system of face, head, and neck; D22.5 Melanocytic nevi of trunk; L81.4 Other melanin hyperpigmentation; L82.1 Other seborrheic keratosis | CPT/HCPCS: 11102; 17110; 99203 ==

== ENCOUNTER → 2024-04-17 14:38 | Outpatient (BNVA) | payer OTHER, SELFPAY | PROVIDERS: PCP Emergency Medicine Emergency Medical Services; Visit Provider Internal Medicine Cardiovascular Disease | DX: I21.19 ST elevation (STEMI) myocardial infarction involving other coronary artery of inferior wall (principal); R07.9 Chest pain, unspecified; R06.02 Shortness of breath; I10 Essential (primary) hypertension | CPT/HCPCS: 36415; 80048; 83880; 93005 ==

== ENCOUNTER 2024-05-16 11:48 | Outpatient (CLI) | payer OTHER, SELFPAY ==
--- NOTE | 2024-05-16 12:00 | USCV_ITS ---
Shayan Flanagan Age: 69 Gender: M : 1955 Exam Date: 05/16/2024 12:18 Ordering Phys: Momo Poole MD ([email or web address]) Technologist: CT Exam Location: [facility] – [place] Indication: BP: 125 / 81 HR: 81 Rhythm: Sinus Technical Quality: Adequate MEASUREMENTS (Male / Female) Normal Values 2D ECHO LVOT Diameter 2.0 cm LV Ejection Fraction MOD 4C 53.7 % LV Ejection Fraction MOD 2C 37.8 % LV Ejection Fraction 2C AL 38.3 % LA Diameter 2.8 cm RA Systolic Volume 4C AL 49.6 ml RA Systolic Volume 4C MOD 47.6 ml LA Sys Volume AL 41.4 cm cubed LA Sys Volume Index AL 19.9 cm cubed/m squared Aorta at Sinotubular Diameter 2.4 cm M-MODE LA Ao Ratio MM 1.4 AV Cusp Separation MM 2.1 cm DOPPLER AV Peak Velocity 142.0 cm/s LVOT Peak Velocity 98.0 cm/s AV Area Cont Eq vti 2.4 cm squared AV Area Cont Eq pk 2.2 cm squared MV Peak Velocity 103.0 cm/s MV Area PHT 5.1 cm squared Mitral E to A Ratio 0.7 TV Peak E Velocity 66.0 cm/s PV Peak Velocity 109.0 cm/s FINDINGS Left Ventricle Normal left ventricular size, systolic function and wall thickness, with no regional wall motion abnormalities. Left ventricular ejection fraction is estimated at 60 %. Grade I/IV diastolic dysfunction (abnormal relaxation filling pattern), normal to mildly elevated filling pressures. Right Ventricle The right ventricle is normal in size and function. Right Atrium The right atrium is normal in size. Left Atrium The left atrium is normal in size. Mitral Valve Structurally normal mitral valve without significant stenosis or prolapse. There is no mitral regurgitation. Aortic Valve Moderate aortic valve calcification. No aortic valve stenosis. Trace to mild aortic valve regurgitation. Tricuspid Valve Structurally normal tricuspid valve without significant stenosis or regurgitation. Pulmonary artery systolic pressure is normal. Pulmonic Valve Structurally normal pulmonic valve without significant stenosis. There is no pulmonic regurgitation. Pericardium Normal pericardium without effusion. Aorta Normal ascending aorta dimension. IVC The inferior vena cava appears normal. CONCLUSIONS Normal left ventricular size, systolic function and wall thickness, with no regional wall motion abnormalities. Left ventricular ejection fraction is estimated at 60 %. Grade I/IV diastolic dysfunction (abnormal relaxation filling pattern), normal to mildly elevated filling pressures. Moderate aortic valve calcification. No aortic valve stenosis. Trace to mild aortic valve regurgitation. There is no pericardial effusion. Right atrial pressure is around 5 mm of mercury. Archana Membreno MD (Electronically Signed) Final Date: 27 May 2024 02:35 S
== END 2024-05-16 11:49 | disposition home or self-care (01) ==
LOC: RAD 11:50
PROVIDERS: PCP Emergency Medicine Emergency Medical Services; Visit Provider Internal Medicine Cardiovascular Disease
DX: R06.09 Other forms of dyspnea (principal); R93.1 Abnormal findings on diagnostic imaging of heart and coronary circulation; I35.8 Other nonrheumatic aortic valve disorders; I35.1 Nonrheumatic aortic (valve) insufficiency
CPT/HCPCS: 93306

== ENCOUNTER 2024-09-30 12:36 | Outpatient (CLI) | payer OTHER, SELFPAY ==
--- NOTE | 2024-09-30 12:44 | USCV_ITS ---
Panchito Shayan Age: 69 Gender: M : 1955 Exam Date: 09/30/2024 13:07 Ordering Phys: Fátima Chau MD Technologist: CEASAR Exam Location: [facility] – [place] Indication: Ischemic Cardiomyopathy BP: 140 / 85 HR: 76 Rhythm: Sinus Technical Quality: Adequate MEASUREMENTS (Male / Female) Normal Values 2D ECHO LV Diastolic Diameter PLAX 6.5 cm 4.2 - 5.9 / 3.9 - 5.3 cm IVS Diastolic Thickness 0.8 cm 0.6 - 1.0 / 0.6 - 0.9 cm IVS Systolic Thickness 1.4 cm LVPW Diastolic Thickness 1.1 cm 0.6 - 1.0 / 0.6 - 0.9 cm LVPW Systolic Thickness 1.1 cm LVOT Diameter 2.3 cm LV Ejection Fraction 2D Teich 51.1 % LV Ejection Fraction MOD 4C 57.6 % LV Ejection Fraction MOD 2C 57.0 % LV Ejection Fraction 2C AL 59.7 % LA Diameter 3.1 cm RA Systolic Volume 4C AL 37.1 ml RA Systolic Volume 4C MOD 35.8 ml Aorta at Sinotubular Diameter 2.3 cm M-MODE LA Ao Ratio MM 1.2 AV Cusp Separation MM 1.5 cm DOPPLER AV Peak Velocity 116.0 cm/s AV Area Cont Eq vti 3.5 cm squared AV Area Cont Eq pk 3.4 cm squared MV Peak Velocity 82.0 cm/s MV Area PHT 3.7 cm squared Mitral E to A Ratio 0.8 TV Peak E Velocity 59.0 cm/s FINDINGS Left Ventricle Normal left ventricular size, Low normal systolic function no regional wall motion abnormalities. Left ventricular ejection fraction is estimated at 50 %. Grade I/IV diastolic dysfunction (abnormal relaxation filling pattern), normal to mildly elevated filling pressures. Right Ventricle The right ventricle is normal in size and function. Right Atrium The right atrium is normal in size. Left Atrium The left atrium is normal in size. Mitral Valve Structurally normal mitral valve without significant stenosis or prolapse. There is no mitral regurgitation. Aortic Valve Structurally normal aortic valve without significant sclerosis or stenosis. There is no aortic regurgitation. Tricuspid Valve Structurally normal tricuspid valve without significant stenosis or regurgitation. Pulmonary artery systolic pressure is normal. Pulmonic Valve Trace pulmonary valve regurgitation. Pericardium Normal pericardium without effusion. Aorta Normal ascending aorta dimension. IVC The inferior vena cava appears normal. CONCLUSIONS Normal left ventricular size, Low normal systolic function no regional wall motion abnormalities. Left ventricular ejection fraction is estimated at 50 %. Grade I/IV diastolic dysfunction (abnormal relaxation filling pattern), normal to mildly elevated filling pressures. There is no pericardial effusion. No significant valve abnormalities. Right atrial pressure is around 5 mm of mercury. Archana Membreno MD (Electronically Signed) Final Date: 05 October 2024 14:21 S
== END 2024-09-30 12:37 | disposition home or self-care (01) ==
PROVIDERS: PCP Emergency Medicine Emergency Medical Services; Visit Provider Family Medicine
DX: I25.5 Ischemic cardiomyopathy (principal); R93.1 Abnormal findings on diagnostic imaging of heart and coronary circulation
CPT/HCPCS: 93306

== ENCOUNTER → 2024-11-11 12:04 | Outpatient (BNVA) | payer OTHER, SELFPAY | PROVIDERS: PCP Nurse Practitioner Family; Visit Provider Internal Medicine Cardiovascular Disease | DX: I25.5 Ischemic cardiomyopathy (principal); I11.0 Hypertensive heart disease with heart failure; I50.20 Unspecified systolic (congestive) heart failure; I25.10 Atherosclerotic heart disease of native coronary artery without angina pectoris; I49.9 Cardiac arrhythmia, unspecified; J44.9 Chronic obstructive pulmonary disease, unspecified; F17.210 Nicotine dependence, cigarettes, uncomplicated | CPT/HCPCS: 99214 ==

== ENCOUNTER 2024-12-18 12:17 | Outpatient (CLI) | payer OTHER, SELFPAY ==
--- NOTE | 2024-12-18 12:00 | USCV_ITS ---
Shayan Flanagan Age: 69 Gender: M : 1955 Exam Date: 12/18/2024 12:41 Ordering Phys: Archana Membreno MD ([email or web address]) Technologist: Exam Location: [facility] – [place] Indication: lv function BP: / HR: Rhythm: Sinus Technical Quality: Adequate MEASUREMENTS (Male / Female) Normal Values 2D ECHO LV Diastolic Diameter PLAX 5.2 cm 4.2 - 5.9 / 3.9 - 5.3 cm IVS Diastolic Thickness 1.4 cm 0.6 - 1.0 / 0.6 - 0.9 cm IVS Systolic Thickness 1.4 cm LVPW Diastolic Thickness 1.3 cm 0.6 - 1.0 / 0.6 - 0.9 cm LVPW Systolic Thickness 1.8 cm LVOT Diameter 2.1 cm LV Ejection Fraction 2D Teich 65.7 % LV Ejection Fraction MOD 4C 61.6 % LV Ejection Fraction MOD 2C 57.3 % LV Ejection Fraction 2C AL 58.9 % LA Diameter 2.9 cm RA Systolic Volume 4C AL 55.0 ml RA Systolic Volume 4C MOD 53.7 ml Aorta at Sinotubular Diameter 3.4 cm M-MODE LA Ao Ratio MM 1.0 AV Cusp Separation MM 2.5 cm FINDINGS Left Ventricle Normal left ventricular size, systolic function and wall thickness, with no regional wall motion abnormalities. Left ventricular ejection fraction is estimated at 60%. Right Ventricle Right Atrium Left Atrium Mitral Valve Aortic Valve Tricuspid Valve Pulmonic Valve Pericardium Aorta IVC CONCLUSIONS Limited echo to asses LV function Normal left ventricular size, systolic function and wall thickness, with no regional wall motion abnormalities. Left ventricular ejection fraction is estimated at 60%. There is no pericardial effusion. Archana Membreno MD (Electronically Signed) Final Date: 28 December 2024 17:49 S
== END 2024-12-18 12:18 | disposition home or self-care (01) ==
LOC: RAD 12:18
PROVIDERS: PCP Nurse Practitioner Family; Visit Provider Internal Medicine Cardiovascular Disease
DX: I42.9 Cardiomyopathy, unspecified (principal)
CPT/HCPCS: 93308

== ENCOUNTER 2025-02-06 14:37 | Emergency (ER) | payer OTHER, SELFPAY ==
[2025-02-06 14:48] VITALS: BP 123/79; PULSE 71; RESP 18; TEMP 36.7; O2SAT 95
[2025-02-06 16:04] LABS: Respiratory Syncytial Virus Ce NEGATIVE (Negative); SARS-CoV-2 PCR NEGATIVE (Negative)
--- NOTE | 2025-02-06 17:22 | XRR_ITS ---
PROCEDURE INFORMATION: Exam: XR Chest Exam date and time: 02/06/2025 5:51 PM Age: 70 years old Clinical indication: Cough; Prior surgery; Surgery date: 6+ months; Surgery type: Coronary stent TECHNIQUE: Imaging protocol: Radiologic exam of the chest. Views: 1 view. COMPARISON: CR XR chest 1V portable [id number] 02/18/2021 3:05 PM FINDINGS: Lungs: Few scattered pulmonary granulomas. A few scattered nonspecific although chronic appearing pulmonary strands. Pleural spaces: Unremarkable. No pleural effusion. No pneumothorax. Heart/Mediastinum: Unremarkable. No cardiomegaly. Bones/joints: Unremarkable. XR/XR chest 1V portable [id number] IMPRESSION: No definite acute infiltrate or effusion.
--- NOTE | 2025-02-06 17:23 | W.ED.URI ---
Documented by User: CHRIS North 02/07/25 00:44 HPI - URI/Sore Throat General: Chief Complaint: Upper Respiratory Infection Stated Complaint: Coughing SOB Time Seen by Provider: 02/06/25 15:08 Source: patient Mode of arrival: ambulatory Limitations: no limitations History of Present Illness: Patient is a 70-year-old male with past medical history of atrial fibrillation, myocardial infarction, coronary artery disease, and chronic everyday smoker who is present to the emergency department complaining of a cough for the past few days. He is also endorsing some acute on chronic shortness of breath. He states that he has been diagnosed with heart failure, kidney failure, and liver failure and states he is here just to make sure he does not have a pneumonia. Denies any known sick contacts, states that [facility] but they told him to come to the emergency department. States that the cough is dry, he has continued to smoke on this. Denies any fever, worsening shortness of breath, but does state that with ambulation he will start to have choking fits from the coughing. He states that he has recently been referred to new other spatial scientist but has yet to see them. Denies any peripheral edema, chest pain, or any other pertinent symptoms at this time. Vitals are all stable. Does not use home O2. MD elicited complaint: cough Onset (ago): day(s) Consistency: constant Severity: moderate Able to tolerate fluids by mouth: Yes Exacerbating factors: exertion and deep breaths Associated symptoms: Deny abdominal pain, chills, chest pain, diarrhea, ear or mastoid pain, fever(s), headache(s), nausea or vomiting Treatments prior to arrival: none Related Data Home Medications ?Medication ?Instructions ?Recorded ?Confirmed cholecalciferol (vitamin D3) 25 2,000 unit PO DAILY 05/20/19 11/11/24 mcg (1,000 unit) capsule garlic 2,000 mg PO DAILY 11/02/19 10/18/22 cyclobenzaprine 10 mg tablet 10 mg PO TID PRN Muscle Pain 02/18/21 11/11/24 gabapentin 100 mg capsule 100 mg PO TID 02/18/21 10/18/22 naproxen 500 mg tablet 500 mg PO BID PRN Pain 02/18/21 10/18/22 cetirizine 10 mg capsule (Allergy 10 mg PO DAILY PRN 04/17/24 11/11/24 Relief (cetirizine)) Previous Rx's ?Medication ?Instructions ?Recorded amlodipine 5 mg tablet 5 mg PO BEDTIME #90 tabs 02/27/22 atorvastatin 40 mg tablet 40 mg PO BEDTIME #90 tabs 02/27/22 clopidogrel 75 mg tablet 75 mg PO DAILY #90 tabs 02/27/22 metoprolol tartrate 75 mg tablet 75 mg PO BID #180 tabs 02/27/22 nitroglycerin 0.4 mg sublingual 0.4 mg sublingual Q5M PRN Chest 03/17/23 tablet Pain #25 tabs apixaban 5 mg tablet (Eliquis) 5 mg PO BID #180 tabs 05/06/24 doxycycline hyclate 100 mg tablet 100 mg PO BID 10 days #20 tabs 02/06/25 prednisone 10 mg tablets in a dose 10 mg PO DIRECTED #21 ea 02/06/25 pack Allergies Allergy/AdvReac Type Severity Reaction Status Date / Time sacubitril (From Entresto) Allergy Severe ADR-Cough Verified 11/11/24 12:37 valsartan (From Entresto) Allergy Severe ADR-Cough Verified 11/11/24 12:37 Review of Systems General: Reports: 10 or more systems reviewed and unremarkable except in HPI and below Const: Denies: fever(s), chills or fatigue Eyes: Denies: change in vision ENMT: Denies: throat pain, ear or mastoid pain or nasal discharge Card: Reports: dyspnea on exertion; Denies: chest pain, palpitations, swelling of feet/ankles or lightheadedness Resp: Reports: dyspnea and non-productive cough; Denies: productive cough or wheezing GI: Denies: abdominal pain, nausea, vomiting, diarrhea or constipation : Denies: flank pain, difficulty urinating, dysuria or urinary frequency Musc: Denies: neck pain, back pain or joint pain Skin/Breast: Denies: rash Neuro: Denies: headache(s), numbness in extremities or weakness in extremities PFSH ED PFSH: Medical History Ischemic cardiomyopathy Headache Atrial fibrillation Myocardial infarction Hepatitis A Atherosclerotic heart disease of [place] coronary artery without angina pectoris Essential (primary) hypertension Mixed hyperlipidemia Tobacco use Surgical History Coronary stent patent DOROTHY present in the LAD, circumflex and RCA coronary arteries Family History Grandmother Stroke Hypertension CAD (coronary artery disease) Diabetes Father Hypertension Diabetes Mother Stroke Diabetes Denies family history of Clotting disorder Dementia Chronic kidney disease (CKD) Suicide Anesthesia complication Bleeding disorder Lung disease Cancer Social History Smoking and tobacco/nicotine status: current every day tobacco/nicotine user cigarettes Packs smoked per day: 1 Alcohol intake: never Substance/Drug Use: never Lives independently: Yes Household members: friend(s) Current occupational status: retired Physical Exam Const: COMMON NORMALS: no acute distress, patient oriented x3 and no limitations GENERAL APPEARANCE: cooperative, comfortable and well developed ORIENTATION/CONSCIOUSNESS: Yes awake, Yes oriented to person, Yes oriented to place and Yes oriented to time HENMT: COMMON NORMALS: normocephalic, atraumatic and hearing grossly normal bilaterally HEAD & SCALP: normocephalic and atraumatic Eye: COMMON NORMALS: Equal, round and reactive pupils present, EOMs intact bilaterally and conjunctivae normal CONJUNCTIVA: Yes conjunctivae normal PUPIL: Yes Equal, round and reactive pupils present Neck/C-Spine: COMMON NORMALS: full ROM, supple and no JVD Resp: COMMON NORMALS: normal respiratory effort, No retractions and No use of accessory muscles OTHER: No active coughing. There is mild wheezing at the bases. Cardio: COMMON NORMALS: no JVD, regular rate, regular rhythm, No clicks present (Cardio), No murmurs present (Cardio) and No rub (Cardio) RATE: regular rate RHYTHM: regular rhythm Extremity: COMMON NORMALS: normal to inspection, full ROM and capillary refill normal NARRATIVE EXTREMITY EXAM: Trace pedal edema bilaterally Neuro: COMMON NORMALS: patient oriented x3, moves all extremities, no focal motor deficits and no sensory deficits noted SENSORIUM/ORIENTATION: Yes oriented to person, Yes oriented to place and Yes oriented to time Skin: COMMON NORMALS: no rashes or lesions noted GENERAL SKIN EXAM: no rashes or lesions noted Course Vital Signs: Vital signs: Vital Signs Temperature 98.0 F 02/06/25 14:48 Pulse Rate 76 02/06/25 19:36 Respiratory Rate 18 02/06/25 14:48 Blood Pressure 103/55 02/06/25 19:36 Pulse Oximetry 97 02/06/25 19:36 Oxygen Delivery Me thod Room Air 02/06/25 14:48 MDM - URI/Sore Throat Medical Decision Making This patient presented with coughing and acute on chronic shortness of breath. States that he was presenting just to make sure he is not having pneumonia or other acute critical reason for his shortness of breath. He is an everyday smoker noted to be smoking in the waiting room. He does report to me a history of CHF and that he is supposed to see cardiology. His physical exam is reassuring and vitals have been stable throughout ED stay. No respiratory distress, cardiopulmonary auscultation is unremarkable aside from some bibasilar wheezing as I suspect he has underlying COPD. Chest x-ray does not show any acute infiltrate or signs of pneumonia and his COVID swab is negative. He will be treated for COPD exacerbation with doxycycline and steroids and referred back to [facility] for further outpatient evaluation and monitoring of his CHF. Also will follow-up with cardiology. Did give him return precautions. Lab Data Radiology Impressions Chest X-Ray 02/06/25 17:22 IMPRESSION: No definite acute infiltrate or effusion. Laboratory Results Influenza A (PCR) Negative (Negative) 02/06/25 15:02 Influenza Type B (PCR) Negative (Negative) 02/06/25 15:02 RSV (PCR) Negative (Negative) 02/06/25 15:02 SARS-CoV-2 (PCR) Negative (Negative) 02/06/25 15:02 All radiology interpretation(s) finalized by discharge Discharge Plan Discharge Patient Disposition: Home Clinical Impression: Acute bronchitis Qualifiers: Bronchitis organism: unspecified organism Qualified Code(s): J20.9 - Acute bronchitis, unspecified Condition: Stable Prescriptions: New prednisone 10 mg tablets,dose pack 10 mg PO DIRECTED Qty: 21 0RF Rx Instructions: see taper instructions 6 tablets on day 1, 5 tablets on day 2, 4 tablets on day 3, 3 tablets on day 4, 2 tablets on day 5, and 1 tablet a day 6. P.o. doxycycline hyclate 100 mg tablet 100 mg PO BID 10 Days Qty: 20 0RF No Action cholecalciferol (vitamin D3) 1,000 unit capsule 2,000 unit PO DAILY Allergy Relief (cetirizine) 10 mg capsule 10 mg PO DAILY PRN amlodipine 5 mg tablet 5 mg PO BEDTIME Qty: 90 3RF atorvastatin 40 mg tablet 40 mg PO BEDTIME Qty: 90 3RF clopidogrel 75 mg tablet 75 mg PO DAILY Qty: 90 3RF metoprolol tartrate 75 mg tablet 75 mg PO BID Qty: 180 3RF nitroglycerin 0.4 mg tablet, sublingual 0.4 mg SUBLINGUAL Q5M PRN (Reason: Chest Pain) Qty: 25 3RF Eliquis 5 mg tablet 5 mg PO BID Qty: 180 3RF cyclobenzaprine 10 mg Tablet 10 mg PO TID PRN (Reason: Muscle Pain) gabapentin 100 mg Capsule 100 mg PO TID naproxen 500 mg Tablet 500 mg PO BID PRN (Reason: Pain) garlic Tablet 2,000 mg PO DAILY Discharge Orders: Discharge ED (Routine); Ordered 02/06/25 Ordered By: Brijesh Peraza Referrals: Desire Turner APRN [Primary Care Provider, Family Practice] Patient Instructions: Patient Portal & Moon Instructions Activity Restrictions/Additional Instructions: Please take doxycycline and prednisone taper as directed. [facility], and continue follow-up with cardiology. Please return with any worsening shortness of breath, onset of chest pain, worsening cough, fevers, or any other concerns that you have. Your viral swab today was negative and chest x-ray did not show any signs of pneumonia. 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 for Chg Fwd Documented by User: Dilan Weems DO 02/07/25 06:00 HPI - URI/Sore Throat General: Chief Complaint: Upper Respiratory Infection Stated Complaint: Coughing SOB Time Seen by Provider: 02/06/25 15:08 Related Data Home Medications ?Medication ?Instructions ?Recorded ?Confirmed cholecalciferol (vitamin D3) 25 2,000 unit PO DAILY 05/20/19 11/11/24 mcg (1,000 unit) capsule garlic 2,000 mg PO DAILY 11/02/19 10/18/22 cyclobenzaprine 10 mg tablet 10 mg PO TID PRN Muscle Pain 02/18/21 11/11/24 gabapentin 100 mg capsule 100 mg PO TID 02/18/21 10/18/22 naproxen 500 mg tablet 500 mg PO BID PRN Pain 02/18/21 10/18/22 cetirizine 10 mg capsule (Allergy 10 mg PO DAILY PRN 04/17/24 11/11/24 Relief (cetirizine)) Previous Rx's ?Medication ?Instructions ?Recorded amlodipine 5 mg tablet 5 mg PO BEDTIME #90 tabs 02/27/22 atorvastatin 40 mg tablet 40 mg PO BEDTIME #90 tabs 02/27/22 clopidogrel 75 mg tablet 75 mg PO DAILY #90 tabs 02/27/22 metoprolol tartrate 75 mg tablet 75 mg PO BID #180 tabs 02/27/22 nitroglycerin 0.4 mg sublingual 0.4 mg sublingual Q5M PRN Chest 03/17/23 tablet Pain #25 tabs apixaban 5 mg tablet (Eliquis) 5 mg PO BID #180 tabs 05/06/24 doxycycline hyclate 100 mg tablet 100 mg PO BID 10 days #20 tabs 02/06/25 prednisone 10 mg tablets in a dose 10 mg PO DIRECTED #21 ea 02/06/25 pack Allergies Allergy/AdvReac Type Severity Reaction Status Date / Time sacubitril (From Entresto) Allergy Severe ADR-Cough Verified 11/11/24 12:37 valsartan (From Entresto) Allergy Severe ADR-Cough Verified 11/11/24 12:37 PFSH ED PFSH: Medical History Ischemic cardiomyopathy Headache Atrial fibrillation Myocardial infarction Hepatitis A Atherosclerotic heart disease of [place] coronary artery without angina pectoris Essential (primary) hypertension Mixed hyperlipidemia Tobacco use Surgical History Coronary stent patent DOROTHY present in the LAD, circumflex and RCA coronary arteries Family History Grandmother Stroke Hypertension CAD (coronary artery disease) Diabetes Father Hypertension Diabetes Mother Stroke Diabetes Denies family history of Clotting disorder Dementia Chronic kidney disease (CKD) Suicide Anesthesia complication Bleeding disorder Lung disease Cancer Social History Smoking and tobacco/nicotine status: current every day tobacco/nicotine user cigarettes Packs smoked per day: 1 Alcohol intake: never Substance/Drug Use: never Lives independently: Yes Household members: friend(s) Current occupational status: retired Course Vital Signs: Vital signs: Vital Signs Temperature 98.0 F 02/06/25 14:48 Pulse Rate 76 02/06/25 19:36 Respiratory Rate 18 02/06/25 14:48 Blood Pressure 103/55 02/06/25 19:36 Pulse Oximetry 97 02/06/25 19:36 Oxygen Delivery Me thod Room Air 02/06/25 14:48 MDM - URI/Sore Throat Medical Decision Making This patient presented with coughing and acute on chronic shortness of breath. States that he was presenting just to make sure he is not having pneumonia or other acute critical reason for his shortness of breath. He is an everyday smoker noted to be smoking in the waiting room. He does report to me a history of CHF and that he is supposed to see cardiology. His physical exam is reassuring and vitals have been stable throughout ED stay. No respiratory distress, cardiopulmonary auscultation is unremarkable aside from some bibasilar wheezing as I suspect he has underlying COPD. Chest x-ray does not show any acute infiltrate or signs of pneumonia and his COVID swab is negative. He will be treated for COPD exacerbation with doxycycline and steroids and referred back to [facility] for further outpatient evaluation and monitoring of his CHF. Also will follow-up with cardiology. Did give him return precautions. Chart reviewed and patient discussed with midlevel. Agree with assessment and plan. Lab Data Radiology Impressions Chest X-Ray 02/06/25 17:22 IMPRESSION: No definite acute infiltrate or effusion. Laboratory Results Influenza A (PCR) Negative (Negative) 02/06/25 15:02 Influenza Type B (PCR) Negative (Negative) 02/06/25 15:02 RSV (PCR) Negative (Negative) 02/06/25 15:02 SARS-CoV-2 (PCR) Negative (Negative) 02/06/25 15:02 Discharge Plan Discharge Patient Disposition: Home Clinical Impression: Acute bronchitis Qualifiers: Bronchitis organism: unspecified organism Qualified Code(s): J20.9 - Acute bronchitis, unspecified Condition: Stable Prescriptions: New prednisone 10 mg tablets,dose pack 10 mg PO DIRECTED Qty: 21 0RF Rx Instructions: see taper instructions 6 tablets on day 1, 5 tablets on day 2, 4 tablets on day 3, 3 tablets on day 4, 2 tablets on day 5, and 1 tablet a day 6. P.o. doxycycline hyclate 100 mg tablet 100 mg PO BID 10 Days Qty: 20 0RF No Action cholecalciferol (vitamin D3) 1,000 unit capsule 2,000 unit PO DAILY Allergy Relief (cetirizine) 10 mg capsule 10 mg PO DAILY PRN amlodipine 5 mg tablet 5 mg PO BEDTIME Qty: 90 3RF atorvastatin 40 mg tablet 40 mg PO BEDTIME Qty: 90 3RF clopidogrel 75 mg tablet 75 mg PO DAILY Qty: 90 3RF metoprolol tartrate 75 mg tablet 75 mg PO BID Qty: 180 3RF nitroglycerin 0.4 mg tablet, sublingual 0.4 mg SUBLINGUAL Q5M PRN (Reason: Chest Pain) Qty: 25 3RF Eliquis 5 mg tablet 5 mg PO BID Qty: 180 3RF cyclobenzaprine 10 mg Tablet 10 mg PO TID PRN (Reason: Muscle Pain) gabapentin 100 mg Capsule 100 mg PO TID naproxen 500 mg Tablet 500 mg PO BID PRN (Reason: Pain) garlic Tablet 2,000 mg PO DAILY Discharge Orders: Discharge ED (Routine); Ordered 02/06/25 Ordered By: Brijesh Peraza Referrals: Desire Turner APRN [Primary Care Provider, Family Practice] Patient Instructions: Patient Portal & Moon Instructions Activity Restrictions/Additional Instructions: Please take doxycycline and prednisone taper as directed. [facility], and continue follow-up with cardiology. Please return with any worsening shortness of breath, onset of chest pain, worsening cough, fevers, or any other concerns that you have. Your viral swab today was negative and chest x-ray did not show any signs of pneumonia. 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 for Jorge Kwong
[2025-02-06 19:36] VITALS: BP 103/55; PULSE 76; O2SAT 97
== END 2025-02-06 19:37 | disposition home or self-care (01) ==
PROVIDERS: Family Medicine; Emergency Provider Physician Assistant; PCP Nurse Practitioner Family
DX: J20.9 Acute bronchitis, unspecified (principal); Z79.02 Long term (current) use of antithrombotics/antiplatelets; Z79.01 Long term (current) use of anticoagulants; I25.10 Atherosclerotic heart disease of native coronary artery without angina pectoris; I10 Essential (primary) hypertension; E78.2 Mixed hyperlipidemia; F17.210 Nicotine dependence, cigarettes, uncomplicated; Z11.52 Encounter for screening for COVID-19
CPT/HCPCS: 71045; 87637; 96372; 99284; J1100; J9999